=== PATIENT | female | born 1970 | race Caucasian/White ===

== ENCOUNTER → 2018-04-17 16:15 | Outpatient (CLI) | payer BC, SELFPAY ==
--- NOTE | 2018-04-17 16:15 | DT_ITS ---
This patient was seen during an EMR downtime April 17, 2018 - April 24, 2018. This patient may have a combination of paper and electronic documentation or all paper documentation. All documentation is viewable within the e-chart portion of [facility] for each patient visit.
[2018-05-02 16:03] LABS: HPV Reflexed? NOT INDICATED
== END ==
PROVIDERS: Visit Provider Obstetrics & Gynecology
DX: Z12.4 Encounter for screening for malignant neoplasm of cervix (principal)
CPT/HCPCS: 88175; G0145

== ENCOUNTER 2018-08-21 23:23 | Emergency (ER) | payer BC, SELFPAY ==
[2018-08-21 23:24] VITALS: BP 166/105; PULSE 93; RESP 16; TEMP 37; O2SAT 98; BMI 22.4
--- NOTE | 2018-08-21 23:39 | EKG12_ITS ---
Test Reason : GENERAL ILLNESS Blood Pressure : / mmHG Vent. Rate : 082 BPM Atrial Rate : 082 BPM P-R Int : 130 ms QRS Dur : 070 ms QT Int : 378 ms P-R-T Axes : 051 056 058 degrees QTc Int : 441 ms Normal sinus rhythm Normal ECG Confirmed by JEANNINE DAI, CHAKA ([id number]), international editorial producer WALESKA GR ([id number] on 08/24/2018 1:38:56 PM Referred By: JAVI Confirmed By:CHAKA PAEZ MD
--- NOTE | 2018-08-21 23:39 | CT_ITS ---
STUDY: CT BRAIN WITHOUT CONTRAST REASON FOR EXAM: Female, 47 years old. Doesn't feel right. Had a stroke 4 weeks ago RADIATION DOSAGE (If Supplied By Facility): CTDIvol = ( 44.99 ) mGy, DLP = ( 745.49 ) mGycm TECHNIQUE: Transaxial CT imaging of the brain was performed without administration of intravenous contrast material. Individualized dose optimization techniques were used for this CT. COMPARISON: None. FINDINGS: There is no scalp hematoma. No calvarial fracture. No intra or extra-axial hemorrhage or tumor mass and no evidence of an acute infarction. A 2.0 x 0.5 cm linear area of low attenuation is seen in the left basal ganglia. This is probably from an old infarction. The ventricles, basal cisterns and cortical sulci are normal with no midline shift. The orbits, paranasal sinuses and mastoid air cells are normal.. CT/Brain/Head without Contrast IMPRESSION: No acute findings in the brain. A linear area of low attenuation is in the left basal ganglia and probably represents an old infarct Electronically Signed: Darryl Bueno MD at 0:15 EDT Tel , Service support ,
--- NOTE | 2018-08-21 23:41 | ED.DCSUM_ITS ---
- ER Visit Summary Date of Service: 08/21/18 Chief Complaint: [] Possible medication side effect with nausea and head tingling History of Present Illness: The patient is a 47 F patient stated the above symptoms started gradually soon after she took citalopram 830 this evening. She felt some heart palpitations and felt like her head was cool. She stated she was admitted at [facility] and had a stroke evaluation 4 weeks ago that left her with loss of fine motor strength in her hands. All of her other symptoms went away per patient. She was told it was anxiety related and she was discharged. During follow-up she stated she had 5 small strokes due to an MRI that was done as an outpatient. The patient is not on any aspirin or other blood thinners. EMS gave Zofran tonight for nausea. Her symptoms are currently resolved. She does have a history of anxiety. She was placed on citalopram by her nurse practitioner just today. Physical Examination: [] Vital signs reviewed General: Well-nourished well-developed Head: Normocephalic atraumatic Eyes: Pupils equal round and reactive to light extraocular movements intact ENT: TMs clear no hemotympanum no trauma Neck: Nontender full range of motion Cardiovascular: Regular rate rhythm no murmurs normal S1-S2 Respiratory: No distress clear to auscultation bilaterally chest nontender Abdomen: Soft nontender nondistended normal bowel sounds no masses Back: Nontender no CVA tenderness Extremities: Nontender active range of motion ?4 extremities no trauma Skin: Normal color no trauma Neuro alert oriented cranial nerves II through XII intact normal strength sensation reflexes Test Results: [] Emergency Department Course and Treatment: [] Patient given IV fluids. Lab work EKG and CT head obtained EKG shows sinus at a rate of 82 without ischemia. CBC is normal except hematocrit 36.8. Chemistries normal except potassium 3.[address] chloride [address] of the head shows linear regions in the left basal ganglier consistent with probable old infarct. This is consistent with the patient's previous story. She felt better after treatment. No focal deficits. Cranial hemorrhage on CT. I think this is related to the medication that she took this evening. She will hold off on this med and follow-up. Treatment Plan: [] Disposition: [] Impression: [] Nausea with head tingling and palpitations?suspected medication side effect This note was generated with Sriram dictation software. It may contain incorrect words, spelling, and punctuation that were not noted in review of the chart prior to signing ED Disposition - Plan for ED Patient: Chief Complaint: General Illness Referrals: Perfecto Murray MD [Primary Care Provider] -
[2018-08-22 00:36] LABS: Absolute Lymphocyte Count 2.15 X10^3/ul (0.83-4.51); Absolute Neutrophil Count 5.5 X10^3/uL (2.0-7.7); Basophil# 0.05 X10^3/uL; Basophil% 0.6 % (0-1); Eosinophil# 0.09 X10^3/uL; Eosinophils% 1.1 % (0-5); Hematocrit 36.8 % (37-47); Hemoglobin 12.5 g/dl (12.0-15.0); Lymphocyte # 2.15 X10^3/ul (4.0); Lymphocyte % 25.5 % (19-41); Mean Corpuscular Hgb 29.7 pg (27.0-32.0); Mean Corpuscular Volume 87.4 fL (81-99); Mean Platelet Vol. 9.8 fl (6.2-12.0); Monocyte# 0.68 X10^3/uL; Monocyte% 8.1 % (0-10); Neutrophil # 5.45 X10^3/uL (2.7-7.7); Neutrophil % 64.6 % (47-70); POSITIVE COUNT NO; POSITIVE DIFFERENTIAL NO; POSITIVE MORPHOLOGY NO; Platelet Count 355 K/mm3 (150-450); Red Blood Count 4.21 M/mm3 (4.2-5.4); White Blood Count 8.4 K/mm3 (4.4-11.0)
[2018-08-22 00:51] LABS: Anion Gap 7 (5-15); BUN 14 mg/dL (7-18); BUN/Creat Ratio 18.6 RATIO (10-20); Calcium,Total 8.2 mg/dL (8.5-10.1); Chloride 108 mmol/L (98-107); Creatinine, Serum 0.75 mg/dL (0.55-1.02); EST Glomerular Filtration Rate 86 mL/min (>60); Est Glom Filt Rate - Afr Amer 105 mL/min (>60); Estimated Creatinine Clearance 65.17 ml/min; Glucose 100 mg/dL (74-106); Potassium 3.4 mmol/L (3.5-5.1); Sodium Level 140 mmol/L (136-145)
--- NOTE | 2018-08-22 01:12 | ED.DEP ---
ED Disposition - Plan for ED Patient: Disposition: Home or Assisted Living Chief Complaint: General Illness Instructions: Taking Medication Safely Referrals: Perfecto Murray MD [Primary Care Provider] -
[2018-08-22 01:17] VITALS: BP 168/73; PULSE 90; RESP 20; O2SAT 99
== END 2018-08-22 01:18 | disposition home or self-care (01) ==
PROVIDERS: Emergency Provider Emergency Medicine
DX: R11.0 Nausea (principal); R20.2 Paresthesia of skin; R00.2 Palpitations; F41.9 Anxiety disorder, unspecified; Z79.899 Other long term (current) drug therapy; Z86.73 Personal history of transient ischemic attack (TIA), and cerebral infarction without residual deficits
CPT/HCPCS: 70450; 80048; 85025; 93005; 96360; 99285; J7030; J7040; A4216

== ENCOUNTER → 2018-08-23 16:06 | Outpatient (CLI) | payer BC, SELFPAY ==
--- NOTE | 2018-08-23 16:28 | CT_ITS ---
Exam: CTA of the neck with contrast and 2-D reconstructions. HISTORY: Visual changes and diaphoresis. COMPARISON: None TECHNIQUE: Patient injected with 100 cc Isovue-370 IV. Axial images were followed with 2-D MIPS reconstructions reviewed at a separate workstation. FINDINGS: Normal appearance of the visualized aortic arch. Normal branching pattern of the great vessels. Common carotid arteries are normal for age. No significant calcified plaque of the carotid bulbs. Right ICA is normal. Left ICA appears completely occluded at the origin. A small amount of contrast is seen in the mid left ICA but it may very likely be from retrograde flow via the [place]. Normal origin and appearance of the vertebral arteries. The left vertebral artery is dominant. Normal visualized basilar artery. Visualized soft tissues including the lung apices and visualized cervical spine show no gross acute abnormalities. CT/CTA Neck W/WO Contrast IMPRESSION: Complete occlusion of the left ICA. Minimal blood flow, possibly retrograde through the [place]. Normal right ICA and vertebral arteries. Electronically Signed: Mahendra Faustin MD at 18:21 EDT , Service support ,
--- NOTE | 2018-08-23 16:28 | CT_ITS ---
STUDY: CTA OF THE BRAIN REASON FOR EXAM: Female, 48 years old. Right-sided weakness and facial droop RADIATION DOSAGE (If Supplied By Facility): CTDIvol = ( 8.75 ) mGy, DLP = ( 1164.21 ) mGycm TECHNIQUE: CT angiography was performed with a multi-detector CT scanner. Data acquisition was obtained from the skull base through the vertex following intravenous administration of 100 ml of Isovue-370. MIP images were reconstructed from the axial data set. Post-processing of the angiographic images was performed, with multiplanar reformation and 3D reconstruction. Individualized dose optimization techniques were used for this CT. COMPARISON: CT scan 08/22/2018 was reviewed.. FINDINGS: There is markedly abnormal left petrous carotid artery which appears to be showing only retrograde flow via the [place]. It appears that the left internal carotid artery in the upper neck is occluded. On the right, the petrous carotid artery, and cavernous carotid artery are patent with small foci of calcified plaque but no evidence for stenosis. Normal A1 segment, and M1 segment on the right. Both normal ACAs fill via the right circulation. Normal M2 branches of the right middle cerebral artery. Relatively small left cavernous carotid artery with a few small flecks of calcified plaque. Relatively small left M1 artery but normal branching pattern. Again, flow on the left is probably via the patent [place] and the right carotid artery. Normal right posterior communicating artery (PCOM). Normal left posterior communicating artery (PCOM). Normal bilateral vertebral arteries. Normal basilar artery with a normal basilar bifurcation. The visualized bilateral superior cerebellar (SCA) arteries are normal. Normal bilateral P1, P2 and visualized P3 segments of the posterior cerebral arteries. There is no demonstrated aneurysm of the [place]. There is no demonstrated abnormality of the visualized brain. CT/CTA Head W/WO Contrast IMPRESSION: Essentially absent flow seen in the left ICA. Very little flow seen in the left petrous carotid artery, cavernous carotid artery, and left MCA most likely retrograde from the [place] and the patent right-sided circulation. No other significant or acute intracranial abnormalities. Electronically Signed: Mahendra Faustin MD at 17:51 EDT , Service support ,
[2018-08-23 17:06] LABS: Homocysteine 7.8 umol/L (3.2-10.7)
[2018-08-23 17:29] LABS: Cholesterol 227 mg/dL (200); High Density Lipoprotein 52 mg/dL; Triglycerides 69 mg/dL; Very Low Density Lipoprotein 14 mg/dL (5-40)
[2018-08-23 19:04] LABS: Hemoglobin A1c 5.2 % (4.2-6.3)
== END ==
PROVIDERS: Referring Provider Psychiatry & Neurology Clinical Neurophysiology; Visit Provider Psychiatry & Neurology Clinical Neurophysiology
DX: H53.34 Suppression of binocular vision (principal); I10 Essential (primary) hypertension; Z86.73 Personal history of transient ischemic attack (TIA), and cerebral infarction without residual deficits
CPT/HCPCS: 36415; 70496; 70498; 80061; 83036; 83090; Q9967

== ENCOUNTER → 2018-09-13 13:50 | Outpatient (CLI) | payer BC, SELFPAY ==
--- NOTE | 2018-09-13 13:55 | ECHODONC_ITS ---
Reason For Study: Stroke Procedure This was a 2D Doppler, Color Flow transthoracic echocardiogram. Myocardial strain analysis was performed in this exam to aid in the assessment of cardiac function. Exam performed in department. Left Ventricle Normal LV size. Left ventricular systolic function is normal. The estimated ejection fraction is 65 %. No evidence for diastolic dysfunction. The global longitudinal strain is normal. The global longitudinal strain = -22.7 % (normal). No regional wall motion abnormalities noted. Right Ventricle Normal RV size. Normal systolic function. Atria Normal left atrium. Normal right atrium. Bubble contrast study negative for right to left interatrial shunt. Mitral Valve Normal mitral valve. Tricuspid Valve Normal tricuspid valve. Aortic Valve Normal aortic valve. Trisinus/trileaflet aortic valve. Pulmonic Valve Normal pulmonic valve. Great Vessels Normal aortic root. The pulmonary artery is normal size. Normal inferior vena cava. Pericardium/Pleural No pericardial effusion. Medication 20 gauge I.V. with prn adaptor inserted into right arm. Performed a rapid injection of agitated mix of 9 cc saline and 1cc air to assess for atrial septal defect. MMode/2D Measurements & Calculations LVIDd: 3.6 cm IVSd: 0.85 cm Ao root diam: 2.8 cm LVIDs: 2.2 cm LVPWd: 0.63 cm LA dimension: 2.6 cm RVDd: 3.0 cm FS: 38.3 % LAV(MOD-bp): 32.9 ml LA A4 area: 13.3 cm2 RA A4 area: 8.4 cm2 LAV(MOD-bp) Indexed: 22.7 ml/m2 LAV(MOD-sp2): 38.2 ml LAV(MOD-sp4): 27.0 ml Time Measurements MV dec time: 0.17 sec Doppler Measurements & Calculations MV E max keegan: 104.6 cm/sec Lat Peak E' Keegan: 19.5 cm/sec Med Peak E' Keegan: 14.4 cm/sec MV A max keegan: 77.1 cm/sec E/E' lat: 5.4 E/E' med: 7.3 MV E/A: 1.4 MV V2 max: 124.2 cm/sec MV P1/2t max keegan: 123.3 cm/sec Ao V2 max: 146.4 cm/sec MV max P.2 mmHg MV P1/2t: 64.6 msec Ao max P.6 mmHg MV V2 mean: 65.8 cm/sec MV dec slope: 559.1 cm/sec2 Ao V2 mean: 87.4 cm/sec MV mean P.1 mmHg MVA(P1/2t): 3.4 cm2 Ao mean P.6 mmHg MV V2 VTI: 28.1 cm Ao V2 VTI: 27.0 cm LV V1 max: 128.3 cm/sec PA V2 max: 104.0 cm/sec LV V1 max P.6 mmHg LV V1 mean P.6 mmHg LV V1 mean: 73.9 cm/sec LV V1 VTI: 24.4 cm Interpretation Summary Normal LV size. Left ventricular systolic function is normal. The estimated ejection fraction is 65 %. No evidence for diastolic dysfunction. Bubble contrast study negative for right to left interatrial shunt. The global longitudinal strain = -22.7 % (normal). Ordering Physician: David^Tamara^^^DO Referring Physician: Tamara Hernandez Performed By: Petros Evans RCS
== END ==
PROVIDERS: Referring Provider Psychiatry & Neurology Clinical Neurophysiology; Visit Provider Psychiatry & Neurology Clinical Neurophysiology
DX: Z86.73 Personal history of transient ischemic attack (TIA), and cerebral infarction without residual deficits (principal)
CPT/HCPCS: 0399T; 93306; A4216

== ENCOUNTER → 2018-10-12 08:54 | Outpatient (CLI) | payer BC, SELFPAY ==
[2018-10-12 10:17] LABS: International Normalized Ratio 1.1; Partial Thromboplast Time 29.7 Seconds (24.1-36.2); Prothrombin Time (Protime)PT. 13.9 SECONDS (11.7-14.9)
[2018-10-12 10:22] LABS: Erythrocyte Sedimentation Rate 6 mm/hr (0-30)
[2018-10-12 10:45] LABS: CRP < 2.90 mg/L (0.0-3.0)
[2018-10-16 20:06] LABS: Dilute Prothrombin Time (dPT) 41.4 sec (0.0-55.0); Dilute Russell Viper Venom 33.3 sec (0.0-47.0); PTT-LA 35.2 sec (0.0-51.9); dPT Confirm Ratio 1.16 Ratio (0.00-1.40)
[2018-10-17 08:52] LABS: Anti-Cardiolipin Ab, IgA, Qn < 9 APL U/mL (0-11); Anti-Cardiolipin Ab, IgG, Qn < 9 GPL U/mL (0-14); Anti-Cardiolipin Ab, IgM, Qn < 9 MPL U/mL (0-12); Interpretation Comment: (.)
--- OUTSIDE RECORDS SUMMARY | 2018-12-07 08:54 | XMS RPT_ITS ---
:1970 Author Organization OHIP Care Team Providers Name Role Phone Landon Dumont Admitting Unavailable Landon Dumont Attending Unavailable Perfecto Murray Primary Care Unavailable Kaye Roth Attending Unavailable Perfecto Murray Primary Care Unavailable Umesh Smith Attending Unavailable Perfecto Murray Primary Care Unavailable GABBY RECINOS Consulting Unavailable Tamara Hernandez Attending Unavailable Ysabel Hernandezfer Referring Unavailable Tamara Hernandez Attending Unavailable David, Tamara Referring Unavailable Perfecto Murray Primary Care Unavailable Marcelino Peña Attending Unavailable David, Tamara Referring Unavailable David, Tamara Attending Unavailable David, Tamara Referring Unavailable Perfecto Murray Primary Care Unavailable KIKO HIRSCH (DO) Referring Unavailable KOSMORSKIKO JOHNSON S (DO) Attending Unavailable COOPERRIDER II, CLARE H Referring Unavailable COOPERRIDER II, CLARE H Attending Unavailable PROBLEMS PROBLEMS DATE TYPE CONDITION / CODE ATTENDING STATUS SOURCE 10/27/2018 Unknown I10 - Essential Tamara Hernandez Active [place] (primary) [facility] hypertension / Hospital I10(ICD-10) Repository 08/07/2018 Active Cerebral infarction, NA Active [place] unspecified / Clinic Main I63.9(ICD-10) [place] Repository 08/07/2018 Active Other cerebrovascular NA Active [place] disease / [facility] Main I67.89(ICD-10) [place] Repository 08/07/2018 Active Other encephalopathy NA Active [place] / G93.49(ICD-10) Clinic Main [place] Repository 08/07/2018 Active 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) / Clinic Main G44.52(ICD-10) [place] Repository 05/11/2018 Unknown Z12.4 - Encounter for Kaye Roth Active [place] screening for [facility] malignant neoplasm of Hospital cervix / Repository Z12.4(ICD-10) PROCEDURES PROCEDURES No Procedure Records FoundRESULTS RESULTS PROTHROMBIN TIME W/INR Collected: 10/12/2018 Status: F Source: [place] 9:17 AM [facility] REPOSITORY TYPE CODE TESTS RESULT OUT OF RANGE REFERENCE UNITS LAB L300.4150 11.7-14.9 SECONDS Normal PROTIME 13.9 LAB L300.4200 Normal INR 1.1 Performed By: #### L300.3900, L300.4310 #### [place] [facility] [address] [place], [place], [id number] PARTIAL THROMBOPLAST Collected: 10/12/2018 Status: F Source: [place] TIME 9:17 AM [facility] REPOSITORY TYPE CODE TESTS RESULT OUT OF RANGE REFERENCE UNITS LAB L300.4310 24.1-36.2 Seconds Normal PTT 29.7 Performed By: #### L300.3900, L300.4310 #### [facility] [address] [place], [place], [address] ERYTHROCYTE SED RATE Collected: 10/12/2018 Status: F Source: [place] 9:17 AM [facility] REPOSITORY TYPE CODE TESTS RESULT OUT OF RANGE REFERENCE UNITS LAB L102.0000 0-30 mm/hr Normal SED RATE 6 Performed By: #### L101.9900 #### [facility] [address] [place], [address] CRP Collected: 10/12/2018 Status: F Source: [place] 9:17 AM [facility] REPOSITORY TYPE CODE TESTS RESULT OUT OF RANGE REFERENCE UNITS LAB L501.6710 0.0-3.0 mg/L Normal < 2.90 C-REACTIVE PROT Result Comment: C-Reactive Protein (CRP) provides useful information for the diagnosis, therapy and monitoring of inflammatory processes and associated diseases. For the evaluation of Relative Risk for Cardiovascular Disease, a High Sensitivity CRP (HSCRP) should be ordered. Performed By: #### L501.6710 #### [facility] [address] [place], [address] MISCELLANEOUS LAB Collected: 10/12/2018 Status: F Source: [place] PROCEDURE 9:17 AM [facility] REPOSITORY Order Comment: Test(s) Ordered: [id number] ANTITHROMBIN ACTIVITY BLUE PLASMA FZ TYPE CODE TESTS RESULT OUT OF RANGE REFERENCE UNITS LAB L801.1541 Normal [facility] LAB TEST Result Comment: TEST RESULT UNITS REFERENCE INTERVAL ANTITHROMBIN ACTIVITY 114 % 75 - 135 Direct Xa inhibitor anticoagulants such as rivaroxaban, apixaban and edoxaban will lead to spuriously elevated antithrombin activity levels possibly masking a deficiency. TESTING PERFORMED AT [facility]. ORIGINAL REPORT ON FILE IN LAB CONTAINS ADDITIONAL TEST SITE INFORMATION. Performed By: #### L801.1541 #### [facility] [address] [place], [address] ANTICARDIOLIPIN IGA,G,M Collected: 10/12/2018 Status: F Source: [place] 9:17 AM [facility] REPOSITORY TYPE CODE TESTS RESULT OUT OF RANGE REFERENCE UNITS LAB L3100.8420 0-14 GPL U/mL Normal ANTICARDIO IgG < 9 Result Comment: Negative: <15 Indeterminate: 15 - 20 Low-Med Positive: >20 - 80 High Positive: >80 LAB L3100.8425 0-12 MPL U/mL Normal ANTICARDIO IgM < 9 Result Comment: Negative: <13 Indeterminate: 13 - 20 Low-Med Positive: >20 - 80 High Positive: >80 LAB L3100.8430 0-11 APL U/mL Normal ANTICARDIO IgA < 9 Result Comment: Negative: <12 Indeterminate: 12 - 20 Low-Med Positive: >20 - 80 High Positive: >80 Performed By: #### L3100.8408, L4500.0100, L4500.5000 #### [facility] (refer to report for specific site) refer to report for address and phone number LUPUS ANTICOAGULANT COMP Collected: 10/12/2018 Status: F Source: [place] 9:17 AM [facility] REPOSITORY TYPE CODE TESTS RESULT OUT OF REFERENCE UNITS RANGE LAB L4500.0125 0.0-55.0 sec DILUTE PT (dPT) Normal 41.4 LAB L4500.0150 0.00-1.40 Ratio dPT Conf. Ratio Normal 1.16 LAB L4500.0200 0.0-23.0 sec THROMBIN TIME Normal 16.0 LAB L4500.0600 0.0-51.9 sec PTT-LA Normal 35.2 LAB L4500.1000 0.0-47.0 sec DRVVT Normal 33.3 LAB L4500.1300 . Interpretation Normal Comment: Result Comment: No lupus anticoagulant was detected. Performed By: #### L3100.8408, L4500.0100, L4500.5000 #### [facility] (refer to report for specific site) refer to report for address and phone number FACT V LEIDEN Collected: 10/12/2018 Status: F Source: [place] MUTATION 9:17 AM [facility] REPOSITORY TYPE CODE TESTS RESULT OUT OF RANGE REFERENCE UNITS LAB L4500.5100 . Normal FACTOR V Comment LEIDEN Result Comment: Result: Negative (no mutation found) Factor V Leiden is a specific mutation (R506Q) in the factor V gene that is associated with an increased risk of venous thrombosis. Factor V Leiden is more resistant to inactivation by activated protein C. As a result, factor V persists in the circulation leading to a mild hyper- coagulable state. The Leiden mutation accounts for 90% - 95% of APC resistance. Factor V Leiden has been reported in patients with deep vein thrombosis, pulmonary embolus, central retinal vein occlusion, cerebral sinus thrombosis and hepatic vein thrombosis. Other risk factors to be considered in the workup for venous thrombosis include the [id number] mutation in the factor II (prothrombin) gene, protein S and C deficiency, and antithrombin deficiencies. Anticardiolipin antibody and lupus anticoagulant analysis may be appropriate for certain patients, as well as homocysteine levels. Contact your local [facility] for information on how to order additional testing if desired. Genetic counselors are available for health care providers to discuss results at [phone] Methodology: DNA analysis of the Factor V gene was performed by allele- specific PCR. The diagnostic sensitivity and specificity is >99% for both. Molecular-based testing is highly accurate, but as in any laboratory test, diagnostic errors may occur. All test results must be combined with clinical information for the most accurate interpretation. This test was developed and its performance characteristics determined by [facility]. It has not been cleared or approved by the Food and Drug Administration. References: Rafa Rouse (1995). Clin Lab Med 16:169-186. Nadia Abbott, PhD, FACMG Carin Izaguirre, PhD, FACMG Marito AckermanS., PhD, FACMG Annemarie Smith, PhD, FACMG Rhonda Logan, PhD, FACMG Carlo Delacruz PhD, FACMG Performed at: [address] [id number] [employer] Operator: Alexandre Simon MD, Phone: [phone] Performed at: [address] [id number] [employer] Operator: Artur Peterson PhD, Phone: [phone] Performed at: [email or web address] [address] [facility], [place], [place] [id number] [employer] Operator: Jacinta More MD, Phone: [phone] Performed By: #### L3100.8408, L4500.0100, L4500.5000 #### [facility] (refer to report for specific site) refer to report for address and phone number MISCELLANEOUS LAB Collected: 10/12/2018 Status: F Source: [place] PROCEDURE 2 9:17 AM [facility] REPOSITORY Order Comment: List Test(s) Ordered by Physician: [id number] PROTHROMBIN COMPLEX IGG IGM PLASMA FZ TYPE CODE TESTS RESULT OUT OF RANGE REFERENCE UNITS LAB L801.1543 Normal [facility] LAB TEST 2 Result Comment: TEST RESULT UNITS REF INTERVAL Anti-PS/PT Abs IgG, IgM Anti-PS/PT Abs IgG <10 Units Reference Range: <31 Anti-PS/PT Abs IgM 31 High Units A positive result indicates the presence of IgM antibodies to phosphatidylserine/prothrombin complex (PS/PT) and is an aid in the diagnosis of certain autoimmune thrombotic disorders, such as antiphospholipid syndrome or those secondary to systemic lupus erythematosus. In patients with antiphospholipid syndrome, aPS/PT antibodies have been found to be highly associated with venous thrombosis and obstetric abnormalities. Reference Range: <31 TESTING PERFORMED AT [facility]. ORIGINAL REPORT ON FILE IN LAB CONTAINS ADDITIONAL TEST SITE INFORMATION. Performed By: #### L801.1543 #### [place] [facility] [address] [place], [address] ONC ECHOCARDIOGRAM Observed: 09/13/2018 Status: F Source: [place] COMPLETE 5:59 PM [facility] REPOSITORY [facility] Cardiovascular Services [address] [place] [address] ONC Echo Complete 09/13/18 1357 MR#: [id number] Acct: [id number] Name: MERY DOLL Rep #: [id number] : 1970 48 From: Marcelino Peña MD Attending Dr: Tamara Hernandez DO Status: REG CLI Ordering Dr: Tamara Hernandez DO Date: 09/13/18 Location: CVS Sex: F C Admitted: Reason For Study: Stroke Procedure This was a 2D Doppler, Color Flow transthoracic echocardiogram. Myocardial strain analysis was performed in this exam to aid in the assessment of cardiac function. Exam performed in department. Left Ventricle Normal LV size. Left ventricular systolic function is normal. The estimated ejection fraction is 65 %. No evidence for diastolic dysfunction. The global longitudinal strain is normal. The global longitudinal strain = -22.7 % (normal). No regional wall motion abnormalities noted. Right Ventricle Normal RV size. Normal systolic function. Atria Normal left atrium. Normal right atrium. Bubble contrast study negative for right to left interatrial shunt. Mitral Valve Normal mitral valve. Tricuspid Valve Normal tricuspid valve. Aortic Valve Normal aortic valve. Trisinus/trileaflet aortic valve. Pulmonic Valve Normal pulmonic valve. Great Vessels Normal aortic root. The pulmonary artery is normal size. Normal inferior vena cava. Pericardium/Pleural No pericardial effusion. Medication 20 gauge I.V. with prn adaptor inserted into right arm. Performed a rapid injection of agitated mix of 9 cc saline and 1cc air to assess for atrial septal defect. MMode/2D Measurements AND Calculations LVIDd: 3.6 cm IVSd: 0.85 cm Ao root diam: 2.8 cm LVIDs: 2.2 cm LVPWd: 0.63 cm LA dimension: 2.6 cm RVDd: 3.0 cm FS: 38.3 % LAV(MOD-bp): 32.9 ml LA A4 area: 13.3 cm2 RA A4 area: 8.4 cm2 LAV(MOD-bp) Indexed: 22.7 ml/m2 LAV(MOD-sp2): 38.2 ml LAV(MOD-sp4): 27.0 ml Time Measurements MV dec time: 0.17 sec Doppler Measurements AND Calculations MV E max keegan: 104.6 cm/sec Lat Peak E' Keegan: 19.5 cm/sec Med Peak E' Keegan: 14.4 cm/sec MV A max keegan: 77.1 cm/sec E/E' lat: 5.4 E/E' med: 7.3 MV E/A: 1.4 MV V2 max: 124.2 cm/sec MV P1/2t max keegan: 123.3 cm/sec Ao V2 max: 146.4 cm/sec MV max P.2 mmHg MV P1/2t: 64.6 msec Ao max P.6 mmHg MV V2 mean: 65.8 cm/sec MV dec slope: 559.1 cm/sec2 Ao V2 mean: 87.4 cm/sec MV mean P.1 mmHg MVA(P1/2t): 3.4 cm2 Ao mean P.6 mmHg MV V2 VTI: 28.1 cm Ao V2 VTI: 27.0 cm LV V1 max: 128.3 cm/sec PA V2 max: 104.0 cm/sec LV V1 max P.6 mmHg LV V1 mean P.6 mmHg LV V1 mean: 73.9 cm/sec LV V1 VTI: 24.4 cm Interpretation Summary Normal LV size. Left ventricular systolic function is normal. The estimated ejection fraction is 65 %. No evidence for diastolic dysfunction. Bubble contrast study negative for right to left interatrial shunt. The global longitudinal strain = -22.7 % (normal). Ordering Physician: David Referring Physician: Tamara Hernandez Performed By: Petros Evans RCS 09/13/181758 Date Marcelino Peña MD CC: Perfecto Murray MD; Tamara Hernandez DO Date Dictated: 09/13/18 1357 Date Transcribed: 09/13/181758 [employer] Consultant: Signed 12 LEAD ELECTROCARDIOGRAM Observed: 08/24/2018 Status: F Source: [place] 1:39 PM [facility] REPOSITORY [facility] Cardiovascular Services [address] [place] [address] [place] [address] 12 Lead EKG 08/21/18 2348 MR#: [id number] Acct: [id number] Name: MERY DOLL Rep #: [id number] : 1970 47 From: Ney Paez MD Attending Dr: Status: DEP ER Ordering Dr: Umesh Smith MD Date: 08/21/18 Location: ED Sex: F C Admitted: Test Reason : GENERAL ILLNESS Blood Pressure : / mmHG Vent. Rate : 082 BPM Atrial Rate : 082 BPM P-R Int : 130 ms QRS Dur : 070 ms QT Int : 378 ms P-R-T Axes : 051 056 058 degrees QTc Int : 441 ms Normal sinus rhythm Normal ECG Confirmed by JEANNINE DAI, NEY ([id number]), publication editor WALESKA GR ([id number]) on 08/24/2018 1:38:56 PM Referred By: JAVI Confirmed By:NEY PAEZ MD 08/24/18 1339 Date Ney Paez MD CC: Perfecto Murray MD; Umesh Smith MD Signed CTA HEAD W/WO Observed: 2018 Status: F Source: [place] CONTRAST 4:35 PM [facility] REPOSITORY [facility] Imaging Services [address] [place] [address] CTA Head W/WO Contrast MR#: [id number] Acct: [id number] Name: MERY DOLL Rep #: [id number] : 1970 F 48 From: Mahendra Faustin MD PCP: Perfecto Murray MD Status: REG CLI Study: CTA Head W/WO Contrast Date of Exam: 08/23/18 Exam# [id number] Ordering Dr: Tamara Hernandez DO STUDY: CTA OF THE BRAIN REASON FOR EXAM: Female, 48 years old. Right-sided weakness and facial droop RADIATION DOSAGE (If Supplied By Facility): CTDIvol = ( 8.75 ) mGy, DLP = ( 1164.21 ) mGycm TECHNIQUE: CT angiography was performed with a multi-detector CT scanner. Data acquisition was obtained from the skull base through the vertex following intravenous administration of 100 ml of Isovue-370. MIP images were reconstructed from the axial data set. Post-processing of the angiographic images was performed, with multiplanar reformation and 3D reconstruction. Individualized dose optimization techniques were used for this CT. COMPARISON: CT scan 08/22/2018 was reviewed.. FINDINGS: There is markedly abnormal left petrous carotid artery which appears to be showing only retrograde flow via the [facility] [place]. It appears that the left internal carotid artery in the upper neck is occluded. On the right, the petrous carotid artery, and cavernous carotid artery are patent with small foci of calcified plaque but no evidence for stenosis. Normal A1 segment, and M1 segment on the right. Both normal ACAs fill via the right circulation. Normal M2 branches of the right middle cerebral artery. Relatively small left cavernous carotid artery with a few small flecks of calcified plaque. Relatively small left M1 artery but normal branching pattern. Again, flow on the left is probably via the patent [facility] [place] and the right carotid artery. Normal right posterior communicating artery (PCOM). Normal left posterior communicating artery (PCOM). Normal bilateral vertebral arteries. Normal basilar artery with a normal basilar bifurcation. The visualized bilateral superior cerebellar (SCA) arteries are normal. Normal bilateral P1, P2 and visualized P3 segments of the posterior cerebral arteries. There is no demonstrated aneurysm of the [facility] [place]. There is no demonstrated abnormality of the visualized brain. CT/CTA Head W/WO Contrast IMPRESSION: Essentially absent flow seen in the left ICA. Very little flow seen in the left petrous carotid artery, cavernous carotid artery, and left MCA most likely retrograde from the [facility] [place] and the patent right-sided circulation. No other significant or acute intracranial abnormalities. Electronically Signed: Mahendra Faustin MD at 17:51 EDT , Service support , CC: Perfecto Murray MD; Tamara Hernandez DO [employer] Consultant: Signed CTA NECK W/WO Observed: 2018 Status: F Source: [place] CONTRAST 4:35 PM [facility] REPOSITORY [facility] Imaging Services [facility] [place] [address] [place] [address] CTA Neck W/WO Contrast MR#: [id number] Acct: [id number] Name: MERY DOLL Sheri Rep #: [id number] : 1970 F 48 From: Mahendra Faustin MD PCP: Perfecto Murray MD Status: REG CLI Study: CTA Neck W/WO Contrast Date of Exam: 08/23/18 Exam# [id number] Ordering Dr: Tamara Hernandez DO Exam: CTA of the neck with contrast and 2-D reconstructions. HISTORY: Visual changes and diaphoresis. COMPARISON: None TECHNIQUE: Patient injected with 100 cc Isovue-370 IV. Axial images were followed with 2-D MIPS reconstructions reviewed at a separate workstation. FINDINGS: Normal appearance of the visualized aortic arch. Normal branching pattern of the great vessels. Common carotid arteries are normal for age. No significant calcified plaque of the carotid bulbs. Right ICA is normal. Left ICA appears completely occluded at the origin. A small amount of contrast is seen in the mid left ICA but it may very likely be from retrograde flow via the [facility] [place]. Normal origin and appearance of the vertebral arteries. The left vertebral artery is dominant. Normal visualized basilar artery. Visualized soft tissues including the lung apices and visualized cervical spine show no gross acute abnormalities. CT/CTA Neck W/WO Contrast IMPRESSION: Complete occlusion of the left ICA. Minimal blood flow, possibly retrograde through the [facility] [place]. Normal right ICA and vertebral arteries. Electronically Signed: Mahendra Faustin MD at 18:21 EDT , Service support , CC: Perfecto Murray MD; Tamara Hernandez DO [employer] Consultant: Signed HOMOCYSTEINE Collected: 2018 Status: F Source: [place] 4:19 PM [facility] REPOSITORY TYPE CODE TESTS RESULT OUT OF REFERENCE UNITS RANGE LAB L503.8001 3.2-10.7 umol/L HOMOCYSTEINE Normal 7.8 Performed By: #### L503.8001 #### [facility] [address] [place], [address] LIPID PROFILE Collected: 2018 Status: F Source: [place] 4:19 PM [facility] REPOSITORY TYPE CODE TESTS RESULT OUT OF RANGE REFERENCE UNITS LAB L501.4900 200 mg/dL High CHOL 227 Result Comment: <200 mg/dL Desirable 200-240 mg/dL Borderline >240 mg/dL High Risk LAB L501.5000 mg/dL Normal TRIG 69 Result Comment: The drugs N-Acetylcysteine and Metamizole may falsely depress this assay. Serum Triglycerides Reference Interval Normal <150 mg/dL Borderline high 150 - 199 mg/dL High 200 - 499 mg/dL Very High > or = 500 mg/dL LAB L501.6400 mg/dL Normal HDL 52 Result Comment: The drugs N-Acetylcysteine and Metamizole may falsely depress this assay. Reference Range HDL <40 mg/dL Low HDL Cholesterol HDL >or= 60 mg/dL High HDL Cholesterol LAB L501.6500 0-130 mg/dL High LDL 161 LAB L501.6600 5-40 mg/dL Normal VLDL 14 Performed By: #### L500.4100 #### [facility] [address] [place], [address] HEMOGLOBIN A1C Collected: 2018 Status: F Source: [place] 4:19 PM [facility] REPOSITORY TYPE CODE TESTS RESULT OUT OF RANGE REFERENCE UNITS LAB L501.9985 4.2-6.3 % Normal HGB A1C 5.2 Performed By: #### L501.9985 #### [facility] [address] [place], [address] DISCHARGE INSTRUCTION Observed: 08/22/2018 Status: F Source: [place] 5:44 AM [facility] REPOSITORY [facility] Medical Records Department [address] [place] [address] Discharge Instruction 08/22/18 0112 MR#: [id number] Acct: [id number] Name: MERY DOLL Rep #: [id number] : 1970 47 From: Umesh Smith MD PCP: Perfecto Murray MD Status: DEP ER ED Disposition - Plan for ED Patient: Disposition: Home or Assisted Living Chief Complaint: General Illness Instructions: Taking Medication Safely Referrals: Perfecto Murray MD [Primary Care Provider] - What to do if you have Problems For any increased pain, shortness of breath, bleeding, nausea or vomiting, chest pain, or any unexpected problems, contact your Primary Care Provider. Call [facility] ([phone]) or report to the closest Emergency Room. Call 911 if necessary. 08/22/18 0544 <Electronically signed by Umesh Smith MD> Date Umesh Smith MD Cosigner Signature (If Indicated): Date CC: Perfecto Murray MD EMERGENCY DEPARTMENT Observed: 08/22/2018 Status: F Source: [place] SUMMARY 5:44 AM [facility] REPOSITORY [facility] Medical Records Department [address] [place] [address] Emergency Department Summary 08/21/18 2340 MR#: [id number] Acct: [id number] Name: MERY DOLL Rep #: [id number] : 1970 47 From: Umesh Smith MD PCP: Perfecto Murray MD Status: DEP ER - ER Visit Summary Date of Service: 08/21/18 Chief Complaint: [] Possible medication side effect with nausea and head tingling History of Present Illness: The patient is a 47 F patient stated the above symptoms started gradually soon after she took citalopram 830 this evening. She felt some heart palpitations and felt like her head was cool. She stated she was admitted at [facility] and had a stroke evaluation 4 weeks ago that left her with loss of fine motor strength in her hands. All of her other symptoms went away per patient. She was told it was anxiety related and she was discharged. During follow-up she stated she had 5 small strokes due to an MRI that was done as an outpatient. The patient is not on any aspirin or other blood thinners. EMS gave Zofran tonight for nausea. Her symptoms are currently resolved. She does have a history of anxiety. She was placed on citalopram by her nurse practitioner just today. Physical Examination: [] Vital signs reviewed General: Well-nourished well-developed Head: Normocephalic atraumatic Eyes: Pupils equal round and reactive to light extraocular movements intact ENT: TMs clear no hemotympanum no trauma Neck: Nontender full range of motion Cardiovascular: Regular rate rhythm no murmurs normal S1-S2 Respiratory: No distress clear to auscultation bilaterally chest nontender Abdomen: Soft nontender nondistended normal bowel sounds no masses Back: Nontender no CVA tenderness Extremities: Nontender active range of motion 4 extremities no trauma Skin: Normal color no trauma Neuro alert oriented cranial nerves II through XII intact normal strength sensation reflexes Test Results: [] Emergency Department Course and Treatment: [] Patient given IV fluids. Lab work EKG and CT head obtained EKG shows sinus at a rate of 82 without ischemia. CBC is normal except hematocrit 36.8. Chemistries normal except potassium 3.[address] chloride [address] of the head shows linear regions in the left basal ganglier consistent with probable old infarct. This is consistent with the patient's previous story. She felt better after treatment. No focal deficits. Cranial hemorrhage on CT. I think this is related to the medication that she took this evening. She will hold off on this med and follow-up. Treatment Plan: [] Disposition: [] Impression: [] Nausea with head tingling and palpitations suspected medication side effect This note was generated with [employer] dictation software. It may contain incorrect words, spelling, and punctuation that were not noted in review of the chart prior to signing ED Disposition - Plan for ED Patient: Chief Complaint: General Illness Referrals: Perfecto [place] MD [Primary Care Provider] - What to do if you have Problems For any increased pain, shortness of breath, bleeding, nausea or vomiting, chest pain, or any unexpected problems, contact your Primary Care Provider. Call [facility] ([phone]) or report to the closest Emergency Room. Call 911 if necessary. 08/22/18 0544 <Electronically signed by Umesh Smith MD> Date Umesh Smith MD Cosigner Signature (If Indicated): Date CC: Perfecto Murray MD CBC W/DIFF, AUTOMATED Collected: 08/22/2018 Status: F Source: [place] 12:12 AM [facility] REPOSITORY TYPE CODE TESTS RESULT OUT OF RANGE REFERENCE UNITS LAB L100.1000 4.4-11.0 K/mm3 Normal WBC 8.4 LAB L100.1200 4.2-5.4 M/mm3 Normal RBC 4.21 LAB L100.1300 12.0-15.0 g/dl Normal HGB 12.5 LAB L100.1400 37-47 % Low HCT 36.8 LAB L100.1500 81-99 fL Normal MCV 87.4 LAB L100.1600 27.0-32.0 pg Normal MCH 29.7 LAB L100.1700 32-36 g/gl Normal MCHC 34.0 LAB L100.1810 11.6-14.6 % Normal RDW CV 12.0 LAB L100.1820 35.1-43.9 fl Normal RDW SD 38.0 LAB L100.1900 150-450 K/mm3 Normal PLT 355 LAB L100.2000 6.2-12.0 fl Normal MPV 9.8 LAB L100.2100 47-70 % Normal NEUT% 64.6 LAB L100.2200 19-41 % Normal LY% 25.5 LAB L100.2300 0-10 % Normal MONO% 8.1 LAB L100.2400 0-5 % Normal EO% 1.1 LAB L100.2500 0-1 % Normal BASO% 0.6 LAB L100.2550 0.0-0.9 % Normal IM GRAN % 0.100 Result Comment: IG% - Immature Granulocytes (promyelocytes, myelocytes and metamyelocytes) > 1% indicates that a LEFT SHIFT is Present. LAB L100.2620 2.0-7.7 X10 3/uL Normal Absolute Neut 5.5 LAB L100.2720 0.83-4.51 X10 3/ul Normal Absolute Lymph 2.15 Performed By: #### L100.0100 #### [facility] [place], [address] BASIC METABOLIC Collected: 08/22/2018 Status: F Source: PIPE PROFILE (BMP) 12:12 AM [facility] REPOSITORY TYPE CODE TESTS RESULT OUT OF RANGE REFERENCE UNITS LAB L501.0100 74-106 mg/dL Normal GLU 100 Result Comment: Fasting Glucose result from 100 to 125 mg/dL suggests IMPAIRED HOMEOSTASIS per A.D.A. criteria. Please note revised GLUCOSE reference range effective 2017. LAB L501.1000 7-18 mg/dL Normal BUN 14 LAB L501.1100 0.55-1.02 mg/dL Normal CREAT,SERUM 0.75 Result Comment: The validity of the calculated GFR AND GFRAA in patients over 70 years has not been determined. Clinical correlation is essential. LAB L501.1110 >60 mL/min Normal EST GFR 86 Result Comment: Non- GFR Calc LAB L501.1115 >60 mL/min Normal EST GFR - AA 105 Result Comment: GFR Calc LAB L501.1255 ml/min Normal Estimated CRCL 65.17 LAB L501.1300 10-20 RATIO Normal BUN/CRE 18.6 LAB L501.2200 8.5-10 mg/dL Low .1 CA 8.2 LAB L501.5300 136-14 mmol/L Normal 5 NA 140 LAB L501.5600 3.5-5. mmol/L Low 1 K 3.4 LAB L501.5900 98-107 mmol/L High CL 108 LAB L501.6100 21.0-3 mmol/L Normal 2.0 CO2 25.0 LAB L501.6200 5-15 Normal GAP 7 Performed By: #### L500.2500 #### [facility] [address] [place], [address] BRAIN/HEAD WITHOUT Observed: 08/21/2018 Status: F Source: PIPE CONTRAST 11:40 PM [facility] REPOSITORY [facility] Imaging Services [address] [place] [address] Brain/Head without Contrast MR#: [id number] Acct: [id number] Name: MERY DOLL Rep #: [id number] : 1970 F 47 From: Darryl Bueno MD PCP: Perfecto Murray MD Status: PRE ER Study: Brain/Head without Contrast Date of Exam: 08/21/18 Exam# [id number] Ordering Dr: Umesh Smith MD STUDY: CT BRAIN WITHOUT CONTRAST REASON FOR EXAM: Female, 47 years old. Doesn't feel right. Had a stroke 4 weeks ago RADIATION DOSAGE (If Supplied By Facility): CTDIvol = ( 44.99 ) mGy, DLP = ( 745.49 ) mGycm TECHNIQUE: Transaxial CT imaging of the brain was performed without administration of intravenous contrast material. Individualized dose optimization techniques were used for this CT. COMPARISON: None. FINDINGS: There is no scalp hematoma. No calvarial fracture. No intra or extra-axial hemorrhage or tumor mass and no evidence of an acute infarction. A 2.0 x 0.5 cm linear area of low attenuation is seen in the left basal ganglia. This is probably from an old infarction. The ventricles, basal cisterns and cortical sulci are normal with no midline shift. The orbits, paranasal sinuses and mastoid air cells are normal.. CT/Brain/Head without Contrast IMPRESSION: No acute findings in the brain. A linear area of low attenuation is in the left basal ganglia and probably represents an old infarct Electronically Signed: Darryl Bueno MD at 0:15 EDT Tel , Service support , CC: Perfecto Murray MD; Umesh Smith MD [employer] Solutions Consultant: Signed PROGRESS Observed: 08/08/2018 Status: COMPLETED Source: [place] 10:28 AM [facility] [place] REPOSITORY [facility] ID: [id number] Author: Kiko Ramires Service: (none) Author Type: Physician Type: Progress Notes Filed: 08/08/2018 10:29 AM Note Text: IMPRESSION: Subacute infarcts in the left MCA territory involving the left lentiform nucleus, frontal cortes radiata, frontal operculum and underlying insula as well as small cortical subacute infarcts in the left superior occipital lobe. ?Patchy areas of enhancement with intrinsic T1 hyperintensity suggesting petechial hemorrhage. ?No significant mass effect. Loss of the normal flow void in the proximal left intracranial ICA, suggesting severe proximal stenosis or occlusion. Minimal nonspecific white matter changes. [employer] Solutions Consultant: ROHAN ? Transcribe Date/Time: Aug 07 2018 ?5:19P Dictated by : MD MELANI JUNIOR Observed: 08/08/2018 Status: COMPLETED Source: [place] 12:00 AM [facility] REPOSITORY Telephone (OPHTST) MERY DOLL ([id number]) 1970 F T Date Time Provider Department 08/08/18 KIKO HIRSCH () OPHTST During your visit today, we recorded the following information about you: Kiko Hirsch DO 08/08/2018 10:29 AM Signed You can read her the MRI report. I've asked Dr Farzad Fernandes to see her and please make that appointment IMPRESSION: Subacute infarcts in the left MCA territory involving the left lentiform nucleus, frontal cortes radiata, frontal operculum and underlying insula as well as small cortical subacute infarcts in the left superior occipital lobe. ?Patchy areas of enhancement with intrinsic T1 hyperintensity suggesting petechial hemorrhage. ?No significant mass effect. Loss of the normal flow void in the proximal left intracranial ICA, suggesting severe proximal stenosis or occlusion. Minimal nonspecific white matter changes. [employer] Solutions Consultant: ROHAN ? Transcribe Date/Time: Aug 07 2018 ?5:19P Dictated by : MD Gerri JUNIOR 08/09/2018 9:56 AM Signed Contacted the patient and relayed the results of her MRI and that she should be seen by Dr. Fernandes. Patient would like to know if you would be able to refer her to a doctor closer to her home in [place]. Patient can be contacted at the following number, . Gerri Vilchis 08/10/2018 10:40 AM Signed Contacted the patient and relayed the following message. Patient says she left a separate message stating she would like to see Dr. Tamara Hernandez with [facility]. Contacted her office and they said the patient would need to have a referral form and contact information sent and they would contact the patient with the appointment. Fax the form for the patient to see the requested doctor. Kiko Ramires ?You 55 minutes ago (8:07 AM) I have no idea who is in that area so she would need to ask her PCP about a local neurologist (Routing comment) Allergies As of Date: 08/08/2018 Noted Allergy Reaction YELLOW DYE 05/23/2018 4 - Hives Date Reviewed: 07/25/2018 Reviewed by: Kiko Ramires - Fully Assessed Reason for Visit: Results [95] Prescriptions as of 08/08/2018 Sig: LISINOPRIL 10 MG TABLET BUPROPION HCL SR 150 MG TABLE* Problem List As Of Date 08/08/2018 Noted Resolved TIA (transient ischemic attack) [G45.9] INVALID FOR* Myopia, bilateral [H52.13] INVALID FOR* Regular astigmatism, left eye [H52.222] INVALID FOR* Presbyopia [H52.4] INVALID FOR* Encounter Status:Closed by KIKO HIRSCH DO on 08/08/18 PROGRESS Observed: 08/07/2018 Status: COMPLETED Source: [place] 3:24 PM [facility] [place] REPOSITORY O ID: [id number] Author: Omid Anderson (Rt) Service: (none) Author Type: Bag Mender Type: Progress Notes Filed: 08/07/2018 3:25 PM Note Text: Radiology Service Progress Note PATIENT NAME: Mery Doll DATE OF SERVICE: August 07, 2018 TIME: 3:24 PM PATIENT IDENTITY VERIFICATION COMPLETED USING TWO (2) METHODS: Patient confirmed name verbally and Date of . PATIENT GENDER DATA: Female. status: : No status: NO. PATIENT RELEVANT IMPLANT DATA REVIEWED: Yes CONTRAST INDUCED NEPHROPATHY RISK FACTORS: Not applicable CREATININE: No results found for: CREAT, EGFROTH, EGFRAA P.O.C.T. RESULTS: N/A August 07, 2018 RADIOLOGIST NOTIFIED?: No ALLERGIES: Reviewed and unchanged CONTRAST ALLERGY: NO. PERIPHERAL IV ACCESS: Ambulatory: IV type: A peripheral IV was started in the Right antecubital site with a Angio cath: 22 gauge., Site assessment: Clean,Dry and Intact, Site disposition Discontinued RADIOLOGY DEPARTMENT: MR; Exam(s) Completed: Head: Routine Brain SIGNED BY: Jackeline Luis RT August 07, 2018 3:24 PM MRI BRAIN WO/W Observed: 08/07/2018 Status: F Source: [place] IVCON 3:17 PM [facility] REPOSITORY * * *Final Report* * * DATE OF EXAM: Aug 07 2018 3:17PM RUSTY 0295 - MRI BRAIN WO/W IVCON / PROCEDURE REASON: multiple diagnoses * * * * Physician Interpretation * * * * EXAMINATION: MRI BRAIN WO/W IVCON CLINICAL HISTORY: New daily persistent headaches with family history of CAD a central and prior stroke. TECHNIQUE: Routine brain MRI protocol without and with contrast including diffusion images. MQ: [id number] Contrast: 10ml mL Dotarem IV COMPARISON: None. RESULT: Acute Change: There is no evidence of restricted diffusion to suggest an acute infarct. Hemorrhage: Mild intrinsic T1 hyperintensity is associated with the subacute infarct in the left lentiform nucleus, left frontal cortes radiata, left frontal operculum and insula suggesting mild petechial hemorrhage. There is no space-occupying parenchymal hematoma. Mass Lesion/ Mass Effect: There is patchy enhancement within a subacute infarct in the left lentiform nucleus and left cortes radiata as well as the left frontal operculum with associated T2/FLAIR hyperintensity. No significant mass effect is associated with the subacute infarct. No evidence of an intracranial mass or extra-axial fluid collection. No other abnormal parenchymal or leptomeningeal enhancement is noted following contrast administration. No significant mass effect. Chronic Change: There is a left MCA territory subacute infarct involving the left lentiform nucleus extending slightly into the left frontal cortes radiata, left frontal operculum and underlying insula with associated enhancement. This demonstrates increased signal on the diffusion-weighted imaging without corresponding decreased ADC signal. Additional small subacute cortical infarcts are present in the left superior occipital lobe with patchy areas of enhancement and FLAIR hyperintensity without significant mass effect. There is mild confluent FLAIR hyperintensity involving the left periatrial periventricular parietal white matter, which is nonspecific but may reflect mild chronic microvascular ischemic changes or sequela of remote insult.. The remainder of the white matter is otherwise within normal limits for age. Parenchyma: No significant volume loss for age. The brain parenchyma is otherwise within normal limits of signal intensity and morphology. Ventricles: Normal caliber and morphology. Skull Base: Hypothalamic and pituitary region are grossly normal. Craniocervical junction is normal. No significant marrow replacement process. Vasculature: There is loss of the normal flow void within the proximal left intracranial ICA, including the left petrous, last from and cavernous segments with distal reconstitution in the left supraclinoid segment, suggesting severe proximal stenosis or occlusion. The remainder of the major intracranial arterial structures, and dural venous sinuses show typical flow void, suggesting patency by spin echo criteria. Other: The visualized paranasal sinuses and mastoid air cells are clear. The orbits and extracranial soft tissues are unremarkable. IMPRESSION: Subacute infarcts in the left MCA territory involving the left lentiform nucleus, frontal cortes radiata, frontal operculum and underlying insula as well as small cortical subacute infarcts in the left superior occipital lobe. Patchy areas of enhancement with intrinsic T1 hyperintensity suggesting petechial hemorrhage. No significant mass effect. Loss of the normal flow void in the proximal left intracranial ICA, suggesting severe proximal stenosis or occlusion. Minimal nonspecific white matter changes. [employer] Consultant: ROHAN Transcribe Date/Time: Aug 07 2018 5:19P Dictated by : BIPIN MATTHEW MD This examination was interpreted and the report reviewed and electronically signed by: BIPIN MATTHEW MD on Aug 07 2018 5:32PM EST [id number] UA COMPLETE Collected: 07/26/2018 Status: F Source: RELIGIOUS 10:21 AM [facility] REPOSITORY TYPE CODE TESTS RESULT OUT OF RANGE REFERENCE UNITS LAB 78767798( Yellow LOINC) Normal UA Color Yellow LAB 36693882( Clear LOINC) Normal UA Clarity Clear LAB 07347588( Negative LOINC) Normal UA Glucose Negative LAB 86363855( Negative LOINC) Normal UA Bili Negative LAB 82759783( LOINC) Normal UA Ketones Trace LAB 28262946( 1.003-1.030 LOINC) Normal UA Spec Grav 1.006 LAB 77267406( 4.6-8.0 LOINC) Normal UA pH 7.0 LAB 80320280( Negative LOINC) Normal UA Protein Negative LAB 69859668( LOINC) Normal UA Urobilinogen Negative LAB 72662765( Negative LOINC) Normal UA Nitrite Negative LAB 92022135( Negative LOINC) Normal UA Blood Negative LAB 08036624( Negative LOINC) Normal UA Leuk Est Negative LAB 76151566( 0-3 /HPF LOINC) Normal UA RBC 0-3 LAB 81546363( 0-5 /HPF LOINC) Normal UA WBC 0-5 LAB 89768688( 0-5 /HPF LOINC) Normal UA Squam Epithelial 0-5 LAB 55120310( Trace /LPF LOINC) UA Mucous Abnormal Trace Performed By: #### [id number] #### [facility] Urinalysis Automated Subsection [address] [place] [address] U BHCG QLT Collected: 07/26/2018 Status: F Source: RELIGIOUS 10:21 AM [facility] REPOSITORY TYPE CODE TESTS RESULT OUT OF RANGE REFERENCE UNITS LAB 4139344(JUAN JOSÉ Neg NC) Normal U beta Neg hCG Ql Performed By: #### [id number] #### [facility] Urinalysis Manual Subsection [facility] [place] [id number] CBC W/ AUTO DIFF Collected: 07/26/2018 Status: F Source: RELIGIOUS 9:33 AM [facility] REPOSITORY TYPE CODE TESTS RESULT OUT OF RANGE REFERENCE UNITS LAB 36397686(L 3.6-11.0 E3/mcL OINC) Normal WBC 8.2 LAB 33503084(L 3.90-5.40 E6/mcL OINC) Normal RBC 4.27 LAB 56016105(L 12.0-16.0 G/DL OINC) Normal Hgb 12.9 LAB 43805932(L 36.0-48.0 % OINC) Normal Hct 38.1 LAB 73208604(L 11.5-14.5 % OINC) Normal RDW 12.8 LAB 60475468(L 27.0-31.0 pg OINC) Normal MCH 30.2 LAB 89738560(L 33.0-37.0 G/DL OINC) Normal MCHC 33.9 LAB 67328361(L 78.0-100.0 fL OINC) Normal MCV 89.2 LAB 51023919(L 7.4-11.0 fL OINC) Normal MPV 8.1 LAB 76281551(L 130-400 E3/mcL OINC) Normal Platelet 330 Performed By: #### [id number] #### [facility] [employer] [facility] [place] [address] AUTO DIFF Collected: 07/26/2018 Status: F Source: RELIGIOUS 9:33 AM [facility] REPOSITORY Order Comment: Order Added by Discern Expert. TYPE CODE TESTS RESULT OUT OF RANGE REFERENCE UNITS LAB 12269576(L 37.0-75.0 % OINC) High Neutro Auto 75.9 LAB 86854461(L 20.0-55.0 % OINC) Low Lymph Auto 15.5 LAB 09813759(L 0.0-10.0 % OINC) Normal Cooper Auto 7.4 LAB 69695640(L 0.0-11.0 % OINC) Normal Eos Auto 0.3 LAB 21483364(L 0.0-2.0 % OINC) Normal Basophil Auto 0.9 LAB 38879250(L 1.4-6.5 E3/mcL OINC) Normal Neutro 6.3 Absolute LAB 06946155(L 1.2-3.4 E3/mcL OINC) Normal Lymph Absolute 1.3 LAB 46171167(L 0.0-0.7 E3/mcL OINC) Normal Cooper Absolute 0.6 LAB 38308359(L 0.0-0.7 E3/mcL OINC) Normal Eos Absolute 0.0 LAB 92410539(L 0.0-0.2 E3/mcL OINC) Normal Basophil 0.1 Absolute Performed By: #### [id number] #### [facility] [employer] [address] [place] [address] TROPONIN-I Collected: 07/26/2018 Status: F Source: RELIGIOUS 9:33 AM [facility] REPOSITORY TYPE CODE TESTS RESULT OUT OF RANGE REFERENCE UNITS LAB 68087858(LO .00-.03 ng/mL INC) Normal <.01 Troponin-I Performed By: #### [id number] #### [facility] [employer] [facility] [place] [id number] CMP Collected: 07/26/2018 Status: F Source: RELIGIOUS 9:33 AM [facility] REPOSITORY TYPE CODE TESTS RESULT OUT OF RANGE REFERENCE UNITS LAB 81729333(L 70-99 mg/dL OINC) High Glucose Lvl 101 LAB 16822872(L 8.4-10.2 mg/dL OINC) Calcium Normal Lvl 8.9 LAB 01700543(L 136-145 mEq/L OINC) Sodium Normal Lvl 138 LAB 46058246(L 3.5-5.1 mEq/L OINC) Normal Potassium Lvl 3.7 LAB 80303475(L 98-107 mEq/L OINC) Chloride Normal 105 LAB 11915328(L 24.0-30.0 mEq/L OINC) Low CO2 22.8 LAB 33783514(L 7-18 mg/dL OINC) BUN Normal 14 LAB 5223453(LO 0.6-1.3 mg/dL INC) Normal Creatinine 0.7 LAB 61387075(L 42-121 Int._Unit/ OINC) L Alk Phos Normal 49 LAB 87907415(L 0.2-1.0 mg/dL OINC) Bili Normal Total 0.6 LAB 39904964(L 3.2-5.0 G/DL OINC) Albumin Normal Lvl 4.0 LAB 95404445(L 6.4-8.3 G/DL OINC) Total Normal Protein 7.2 LAB 90706436(L 10-40 Int._Unit/ OINC) L ALT Normal 21 LAB 38337364(L 10-42 Int._Unit/ OINC) L AST Normal 21 LAB 13241279(L 5.4-30.0 ratio OINC) Normal BUN/Creat Ratio 20.0 LAB 03691460(L 2.0-4.0 G/DL OINC) Globulin Normal 3.2 LAB 23404572(L 1.1-1.9 ratio OINC) A/G Normal Ratio 1.2 Performed By: #### [id number] #### [facility] [employer] [address] [place] [address] EGFR Collected: 07/26/2018 Status: F Source: RELIGIOUS 9:33 AM [facility] REPOSITORY Order Comment: Order added by Discern Expert. TYPE CODE TESTS RESULT OUT OF RANGE REFERENCE UNITS LAB 78604187(LO mL/min/1.73 INC) m2 Normal eGFR >60 LAB 69628247(LO mL/min/1.73 INC) m2 Normal eGFR AA >60 Performed By: #### [id number] #### [facility] [employer] [address] [place] [address] CT BRAIN(ED ONLY-STROKE Observed: 07/26/2018 Status: F Source: RELIGIOUS PROTOCOL) 8:40 AM [facility] REPOSITORY Exam Date/Time: 07/26/2018 08:53 EDT Reason for Exam: Stroke Report STUDY: CT Brain(ED Only-Stroke Protocol); 07/26/2018 8:53 am INDICATION: Stroke. COMPARISON: None. ACCESSION NUMBER(S): [id number] ORDERING CLINICIAN: Landon Dumont TECHNIQUE: Volume acquisition through the brain with axial coronal and sagittal reformatted 5 mm images. No IV contrast. FINDINGS: INTRACRANIAL: The ventricles are midline in position. Kemp-white matter differentiation is well maintained. There is no evidence of acute infarction or hemorrhage. There is no extra-axial mass or fluid collection. Basilar cisterns are patent. EXTRACRANIAL: The imaged paranasal sinuses are clear. The imaged mastoid air cells are clear. The calvarium is intact. IMPRESSION: There is no evidence of an acute infarction or hemorrhage. Above findings were discussed with the ED physician at 8:56 a.m. 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 genetic testing. Will get MRI. She presently has no ocular findings. If the MRI is suggestive of this condition she will need to be referred to neurologic genetics as I do not do this kind of work. I have confirmed and edited as necessary the relevant ophthalmic history, ROS, and the neuro exam findings as obtained by others. I have seen and examined this patient. I have discussed the case and the management of this patient's care with the Resident/Fellow, if applicable. I also have reviewed and agree with the assessment and plan as stated above and agree with all of its relevant components. Kiko Emanuel DO Ricky July 25, 2018 2:06 PM PROGRESS Observed: 05/23/2018 Status: COMPLETED Source: [place] 5:29 PM [facility] REPOSITORY HNO ID: [id number] Author: Clare Arcos II Service: (none) Author Type: BUILDINGS AND GROUNDS COORDINATOR Type: Progress Notes Filed: 05/23/2018 5:41 PM Note Text: ASSESSMENT/PLAN: 1. Amaurosis fugax - ICD9: 362.34, ICD10: G45.3 (primary diagnosis) Multiple episodes started 3 weeks ago. Distorted vision and loss of temporal sight left eye>right eye. Episodes last less than 1 hour. No history of migraine. Patient reports stable BP control. Mother and cousins have CADASIL. Mother in her 60's suffering paralysis following recent strokes resulting in increased stress levels for patient. Recommend further neurological and cardiovascular work-up as well as genetic testing to determine cause of recent symptoms. Will contact patient with referral information. 2. Myopia, bilateral - ICD9: 367.1, ICD10: H52.13 3. Regular astigmatism, left eye - ICD9: 367.21, ICD10: H52.222 4. Presbyopia - ICD9: 367.4, ICD10: H52.4 Small shift in glasses power demonstrated to patient. Past non-adapt to PAL's. Discussed glasses options. I have confirmed and edited as necessary the relevant ophthalmic history, review of systems, surgical history, and ophthalmological examination findings as obtained by the ophthalmic technical staff. I have seen and examined Mery Doll. I have discussed the examination findings, diagnosis, and treatment options with the patient and/or the patient's family. I have also reviewed and agree with the assessment and plan as stated above and agree with all its relevant components. I gave the patient the opportunity to ask questions about the findings, diagnosis, and treatment options. Clare Arcos, II, OD DOWNTIME REPORT Observed: 05/04/2018 Status: F Source: [place] 1:19 PM [facility] REPOSITORY [facility] Medical Records Department [address] [place] [address] Downtime Report MR#: [id number] Acct: [id number] Name: MERY DOLL Rep #: [id number] : 1970 47 From: Morgan Gr PCP: Status: REG CLI This patient was seen during an EMR downtime April 17, 2018 - April 24, 2018. This patient may have a combination of paper and electronic documentation or all paper documentation. All documentation is viewable within the e-chart portion of [employer] for each patient visit. PAP I-G W/RFX HRHPV Collected: 04/17/2018 Status: F Source: [place] 4:15 PM [facility] REPOSITORY Order Comment: CYTOLOGY INFORMATION: - CLINICAL INFORMATION: - DATE LMP/MENOPAUSE: 03/27/18 LMP - COLLECTION VIAL: Thin Prep Vial - VALET CASHIER SOURCE: CERVICAL/ENDOCERVICAL - COLLECTION TECHNIQUE: BRUSH/SPATULA Specimen Comment: Source.............Cervix;Endocervix Specimen Comment: LMP / Prev Treat...CVO=[id number] Specimen Comment: No. of containers..01 ThinPrep Vial Specimen Comment: A duplicate report has been generated due to demographic Specimen Comment: updates. TYPE CODE TESTS RESULT OUT OF RANGE REFERENCE UNITS LAB L7400.0800 . Normal DIAGN Comment Result Comment: NEGATIVE FOR INTRAEPITHELIAL LESION AND MALIGNANCY. LAB L7400.0900 . Normal ADEQ Comment Result Comment: Satisfactory for evaluation. Endocervical and/or squamous metaplastic cells (endocervical component) are present. LAB L7400.1400 . Normal PERFORM Comment Result Comment: Annette Arguello, Road Cutter (ASCP) LAB L7400.2575 . Normal TEST METHOD Comment Result Comment: This liquid based ThinPrep(R) pap test was screened with the use of an image guided system. LAB L7400.2600 . Normal . COMM LAB L7400.2700 . Normal PAPSMR Comment Result Comment: The Pap smear is a screening test designed to aid in the detection of premalignant and malignant conditions of the uterine cervix. It is not a diagnostic procedure and should not be used as the sole means of detecting cervical cancer. Both false-positive and false-negative reports do occur. LAB L7400.2800 . Normal HPV RFLX Comment Result Comment: The HPV DNA reflex criteria were not met with this specimen result therefore, no HPV testing was performed. Performed at: - [facility] [place] [id number] [employer] Distiller Operator: Margo Burch MD, Phone: [phone] Performed By: #### L7400.0350 #### [facility] (refer to report for specific site) refer to report for address and phone number ALLERGIES ALLERGIES DATE TYPE / CODE NAME / CODE REACTION SEVERITY SOURCE 08/21/2018 Drug yellow Rash Unknown [facility] Allergy/4160 dye/[id number] Hospital [address](SNOMED (RXNORM) Repository CT) 05/23/2018 DRUG YELLOW DYE HIVES [facility] INGREDI/[address] [place] [address](SNOMED Repository CT) Drug/[id number] YELLOW NUMBER Unknown [facility] 03([address]) System Repository ENCOUNTERS ENCOUNTERS ADMIT/DISCHARGE ACCOUNT NUMBER ADMITTING ENCOUNTER LOCATION SOURCE CLASS 10/12/2018 [id number] [facility] ding:LAB Repository 09/13/2018 [id number] [facility] ding:[facility] Repository 09/13/2018 [id number] Ambulatory [facility]: [facility] Repository 2018 [id number] [facility] ding:CT Repository 08/21/2018/08/22/20 [id number] Emergency [address] ding:ED Repository 08/07/2018/08/07/20 [id number] Ambulatory [address] Repository 07/26/2018/07/26/20 [id number] Landon Dumont Emergency [address] ding[facility] EDRoom: WR Repository 07/26/[id number] Repository 07/25/2018/07/25/20 [id number] Ambulatory [address] Repository 05/25/2018/05/26/20 [id number] Ambulatory [address] Repository 05/23/2018/05/24/20 [id number] Ambulatory [address] Repository 04/17/2018 [id number] Ambulatory [place] [facility] ding:LABSPEC Repository PAYERS PAYERS ENCOUNTER GUARANTOR PAYER SUBSCRIBER SOURCE 10/12/2018 SALINA L [id number] Primary CHRISTINE L RUSHDOB: [place] Insurance:ANTHEMPolic [id number] y Number: [facility] [address]Grb: [id number] Repository ve Date:2562-87-26QG () [address] [place] [address]AH: 10/12/2018 Secondary NOT GIVENUNK [place] Insurance:SELF PAY [facility] Number: Effective Repository Date:2018-10-12 09/13/2018 SALINA Sheri [id number] Primary CHRISTINE L RUSHDOB: [place] [facility] 0825-03-18MPMM[facility], y Number: [facility] [address]Eds: [id number] Repository ve Date:8376-91-33PE () [address]ZN [place] [address]WA: 09/13/2018 Secondary NOT GIVENUNK [place] Insurance:SELF PAY [facility] Number: Effective Repository Date:2018-09-04 09/13/2018 BENTLEYA Sheri [id number] Primary CHRISTINE L RUSHDOB: [place] [facility] 1823-06-24WLNMercy Medical [facility], y Number: [facility] [id number]: [id number] Repository ve Date:2416-94-89HD () [address] [place] [address]YD: 09/13/2018 Secondary NOT GIVENUNK [place] Insurance:SELF PAY [facility] Number: Effective Repository Date:2018-09-13 2018 SALINA L [id number] Primary CHRISTINE L RUSHDOB: [place] Insurance:[facility] [id number] Medical Center [facility], y Number: [facility] [address]Whw: [id number] Repository ve Date:2224-17-71QS () [address], [place] [address]PJ: 2018 Secondary NOT GIVENUNK [place] Insurance:SELF PAY [facility] Number: Effective Repository Date:2018 08/21/2018 [place] Sheri [id number] Primary CHRISTINE L RUSHDOB: [place] Insurance:ANTHEMPolic [id number] Medical Center [facility], y Number: [facility] [address]Kiz: [id number] Repository ve Date:3831-15-65KR () [address], [place] [address]CT: 08/21/2018 Secondary NOT GIVENUNK [place] Insurance:SELF PAY [facility] Number: Effective Repository Date:2018-08-21 07/26/2018 SALINA RUSHDOB: Primary CHRISTINE L RUSHDOB: [facility] N Insurance:ANTHEMPolic [id number] y Number: Effective N [facility], Date:2018-07-26 [facility], Repository [place] [id number] [place] [id number]: [id number]: Name:Isauro Albert [address] [place] [address]SM: ()Tel: [phone] () 07/26/2018 SALINA RUSHDOB: Primary CHRISTINE RUSHDOB: [place] Insurance:AnthemPolic [id number] y Number: Repository [facility], [id number] [place] [id number]: ve Date:Plan Name:[facility] () 04/17/2018 Lagunaoneal Corralh229 Primary CHRISTINE L RUSHDOB: [place] [facility] [id number] Medical Center [facility], y Number: [facility] [id number]: [id number] Repository Date:6966-30-88GH [address]) [address]IHNJGZI, [place] [address]YP: 04/17/2018 Secondary NOT GIVENUNK [place] Insurance:SELF PAY [facility]: Effective Repository Date:2018-04-17
== END ==
PROVIDERS: Referring Provider Psychiatry & Neurology Clinical Neurophysiology; Visit Provider Psychiatry & Neurology Clinical Neurophysiology
DX: I10 Essential (primary) hypertension (principal); E78.79 Other disorders of bile acid and cholesterol metabolism; I65.21 Occlusion and stenosis of right carotid artery; I69.351 Hemiplegia and hemiparesis following cerebral infarction affecting right dominant side
CPT/HCPCS: 81241; 85610; 85652; 85730; 86140; 86147

== ENCOUNTER 2019-05-07 16:42 | Observation (INO) | payer BC, SELFPAY ==
[2019-05-07] VITALS (12 sets, daily range): BP systolic 133–157; BP diastolic 75–100; PULSE 71–93; RESP 9–18; TEMP 36.1–37.7; O2SAT 94–100; BMI 23.6; BMI 24.0
--- NOTE | 2019-05-07 17:13 | CT_ITS ---
STUDY: CTA NECK WITH CONTRAST REASON FOR EXAM: Female, 48 years old. TIA and left eye vision loss with ocular headache RADIATION DOSAGE (If Supplied By Facility): CTDIvol = ( 23.49 ) mGy, DLP = ( 1158.28 ) mGycm TECHNIQUE: CT angiography with multi-detector data acquisition was performed from the aortic arch to the skull base following intravenous administration of 100ml IV Isovue 370. MIP images were reconstructed from the axial data set. Post-processing of the angiographic images was performed, with multiplanar reformation and 3D reconstruction. Individualized dose optimization techniques were used for this CT. COMPARISON: 08/23/2018 FINDINGS: AORTIC ARCH: Normal visualized aortic arch. Normal origins of the brachiocephalic, left common carotid, and left subclavian arteries. RIGHT CAROTID ARTERIES: Normal right common carotid artery (CCA). Normal right common carotid bulb. Normal origin of the right internal carotid (ICA) artery without a hemodynamically significant stenosis. Normal visualized cervical portion of the right internal carotid artery. Normal origin of the right external carotid artery (ECA). LEFT CAROTID ARTERIES: Normal left common carotid artery (CCA). There is complete occlusion of the proximal left ICA for a length of 13 mm. Distal to this, there is severely diminished flow related enhancement in the ICA extending to the level of the petrous segment (string sign). This is stable compared to prior study. Normal origin of the left external carotid artery (ECA). VERTEBRAL ARTERIES: Normal bilateral vertebral arteries. CT/CTA Neck W/WO Contrast IMPRESSION: There is complete occlusion of the proximal left ICA for a length of 13 mm. Distal to this, there is severely diminished flow-related enhancement in the ICA extending to the level of the petrous segment (string sign). This is stable compared to prior study. The right carotid system and bilateral vertebral arteries are patent. Electronically Signed: Eugene Polk MD at 18:33 EDT Tel , Service support ,
--- NOTE | 2019-05-07 17:13 | CT_ITS ---
STUDY: CTA OF THE BRAIN REASON FOR EXAM: Female, 48 years old. TIA with left eye vision loss and ocular headache RADIATION DOSAGE (If Supplied By Facility): CTDIvol = ( 23.49 ) mGy, DLP = ( 1158.28 ) mGycm TECHNIQUE: CT angiography was performed with a multi-detector CT scanner. Data acquisition was obtained from the skull base through the vertex following intravenous administration of 100ml IV Isovue 370. MIP images were reconstructed from the axial data set. Post-processing of the angiographic images was performed, with multiplanar reformation and 3D reconstruction. Individualized dose optimization techniques were used for this CT. COMPARISON: 08/23/2018 FINDINGS: Intracranial ICA calcifications. Otherwise: Normal right cavernous carotid artery with a normal supraclinoid bifurcation. A near occlusion of the petrous segment of the left ICA is noted with string sign involving that segment of the vessel. This has likely progressed. Significantly decreased flow related enhancement is noted in the left cavernous ICA segment, although that segment remains patent. There is mildly decreased flow related enhancement in the left supraclinoid ICA segment. Overall, the left cavernous and supraclinoid segments are unchanged compared to prior study. Normal right A1 segments of the anterior cerebral artery. Normal left A1 segments of the anterior cerebral artery. Normal intact anterior communicating artery (ACOM). Normal bilateral A2 segments of the anterior cerebral arteries. Normal right M1 and M2 segments of the middle cerebral arteries, with a normal M1 bifurcation. Mildly decreased flow related enhancement in the M1 segment of the left MCA, unchanged from prior study. The more distal segments are patent. Normal right posterior communicating artery (PCOM). Normal left posterior communicating artery (PCOM). Normal bilateral vertebral arteries. Normal basilar artery with a normal basilar bifurcation. The visualized bilateral superior cerebellar (SCA) arteries are normal. Normal bilateral P1, P2 and visualized P3 segments of the posterior cerebral arteries. There is no demonstrated aneurysm of the [place]. Remote infarcts in the left basal ganglia and frontal lobe. CT/CTA Head W/WO Contrast IMPRESSION: Interval progression of diminished flow related enhancement in the petrous segment of the left ICA without jakob occlusion. Stable decreased flow related enhancement in the left supraclinoid and cavernous ICA segments without jakob occlusion. Stable decreased flow related enhancement in the left M1 segment of the MCA. Electronically Signed: Eugene Polk MD at 18:29 EDT Tel , Service support ,
--- NOTE | 2019-05-07 17:13 | RAD_ITS ---
STUDY: X-RAY CHEST REASON FOR EXAM: Female, 48 years old. TIA TECHNIQUE: Single frontal view of the chest. COMPARISON: None. FINDINGS: The lungs are clear and expanded. There is no demonstrated pleural abnormality. Normal size heart. Normal mediastinum and cyndi. Normal visualized pulmonary arteries. Normal visualized aortic arch and descending thoracic aorta. Normal visualized thoracic spine. Normal visualized ribs, clavicles, and shoulders. There is no demonstrated abnormality of the visualized soft tissue structures of the upper abdomen. RAD/Chest 1 View IMPRESSION: Normal x-ray examination of the chest. Electronically Signed: Eugene Polk MD at 18:05 EDT Tel , Service support ,
--- NOTE | 2019-05-07 17:13 | EKG12_ITS ---
Test Reason : NEURO VISION Blood Pressure : / mmHG Vent. Rate : 092 BPM Atrial Rate : 092 BPM P-R Int : 128 ms QRS Dur : 068 ms QT Int : 370 ms P-R-T Axes : 044 058 052 degrees QTc Int : 457 ms Normal sinus rhythm Normal ECG Confirmed by JEANNINE DAI, CHAKA ([id number]), make up editor LB IRWIN ([id number]) on 05/09/2019 7:56:42 AM Referred By: Yokasta Gustafson Confirmed By:CHAKA PAEZ MD
[2019-05-07] MEDS: 0.9% Normal Saline 1,000 ML 100 ML IV ×2 (17:32→23:26)
[2019-05-07 17:35] LABS: Prothrombin Time (Protime)PT. 12.7 SECONDS (11.7-14.9)
[2019-05-07 17:36] LABS: Partial Thromboplast Time 28.3 Seconds (24.1-36.2)
[2019-05-07 17:40] LABS: Absolute Lymphocyte Count 3.05 X10^3/ul (0.83-4.51); Absolute Neutrophil Count 5.2 X10^3/uL (2.0-7.7); Basophil# 0.04 X10^3/uL; Basophil% 0.4 % (0-1); Eosinophil# 0.11 X10^3/uL; Eosinophils% 1.2 % (0-5); Hematocrit 38.6 % (37-47); Lymphocyte # 3.05 X10^3/ul (4.0); Lymphocyte % 32.7 % (19-41); Mean Corp Hgb Conc 33.7 g/gl (32-36); Mean Corpuscular Hgb 29.6 pg (27.0-32.0); Mean Corpuscular Volume 87.9 fL (81-99); Mean Platelet Vol. 9.5 fl (6.2-12.0); Monocyte# 0.95 X10^3/uL; Monocyte% 10.2 % (0-10); Neutrophil # 5.16 X10^3/uL (2.7-7.7); Neutrophil % 55.4 % (47-70); Platelet Count 340 K/mm3 (150-450); RBC Distribution Width CV 12.5 % (11.6-14.6); RBC Distribution Width SD 40.4 fl (35.1-43.9); Red Blood Count 4.39 M/mm3 (4.2-5.4); White Blood Count 9.3 K/mm3 (4.4-11.0)
[2019-05-07 17:43] LABS: POSITIVE COUNT NO; POSITIVE DIFFERENTIAL NO; POSITIVE MORPHOLOGY NO
--- NOTE | 2019-05-07 17:45 | ED.VISSUMM ---
- ER Visit Summary Date of Service: 05/07/19 Chief Complaint: Intermittent visual change History of Present Illness: The patient is a 48 F presents to the emergency department with intermittent visual change. The patient does have a history of prior stroke. She had rather significant right-sided weakness. She was found to have a complete occlusion of her left internal carotid. She has followed with neurology. She had testing done and they have not recommended any surgery. She has been on aspirin and a statin. She states that over the past 24 hours, she had 2 episodes where she had cloudy vision of the left eye. She does not have complete vision loss, but states her vision is abnormal. She had a mild headache, but not necessarily with the symptoms. She is also had some intermittent neck pain. She denies any trouble speaking or swallowing. She denies any other systemic complaints. Physical Examination: Vital signs reviewed General: Well-nourished, well-developed Head: Normocephalic, atraumatic Eyes: Pupils equal and reactive, extraocular muscles intact Neck, supple, no lymphadenopathy Heart: Regular rate and rhythm Respiratory: No distress, clear bilaterally Abdomen: Soft, nontender, nondistended, no peritoneal signs Back: Nontender Extremities: Nontender, no edema, no cords Skin: Normal color no rash Neuro: Alert and oriented, no focal or lateralizing deficits Test Results: [] Emergency Department Course and Treatment: The patient has an NIH of 0. However, she has multiple risk factors for stroke. I am not sure if this was a TIA or even an atypical migraine. She has no headache at this time. The patient underwent CT which was unremarkable. CTA does demonstrate chronic occlusion of the right ICA which is basically unchanged. I did discuss the patient Dr. Armendariz. As she has a chronic occlusion with relatively unchanged blood flow, I do feel the patient would be safest with an observation for TIA. Patient was discussed with the hospitalist. Treatment Plan: [] Disposition: [] Impression: 1. TIA This note was generated with [employer] Mobile Interactionation software. It may contain incorrect words, spelling, and punctuation that were not noted in review of the chart prior to signing ED Disposition - Plan for ED Patient: Disposition: Acute Care [facility]
[2019-05-07 17:47] LABS: Anion Gap 5 (5-15); BUN 19 mg/dL (7-18); Calcium,Total 8.5 mg/dL (8.5-10.1); Chloride 107 mmol/L (98-107); Creatinine, Serum 0.83 mg/dL (0.55-1.02); EST Glomerular Filtration Rate 77 mL/min (>60); Est Glom Filt Rate - Afr Amer 94 mL/min (>60); Estimated Creatinine Clearance 58.25 ml/min; Glucose 91 mg/dL (74-106); Potassium 3.5 mmol/L (3.5-5.1); Sodium Level 138 mmol/L (136-145)
--- NOTE | 2019-05-07 19:12 | HP.PCM_ITS ---
Problem List (1) TIA (transient ischemic attack) Status: Acute (2) Ocular migraine Status: Chronic (3) CVA (cerebral vascular accident) Status: Chronic Qualifiers: CVA mechanism: unspecified Qualified Code(s): I63.9 - Cerebral infarction, unspecified (4) Anxiety and depression Status: Chronic (5) Second hand tobacco smoke exposure Status: Chronic (6) HTN (hypertension) Status: Chronic Qualifiers: Hypertension type: essential hypertension Qualified Code(s): I10 - Essential (primary) hypertension (7) HLD (hyperlipidemia) Status: Chronic Qualifiers: Hyperlipidemia type: unspecified Qualified Code(s): E78.5 - Hyperlipidemia, unspecified (8) Carotid disease, bilateral Status: Chronic Qualifiers: Carotid artery disease type: unspecified Qualified Code(s): I77.9 - Disorder of arteries and arterioles, unspecified History of Present Illness Date of Admission: 05/07/19 Chief Complaint: Intermittent L eye vision loss/changes The patient is a 48 y/o F w/ PMHx: Hx CVA x 2, most recently 2018 w/ R sided hemiplegia, expressive aphasia which has improved to fine motor R sided only w/ known occlusion L ICA, HTN, HLD, Hx Occular Migraine w/ L eye vision changes who presents to the [facility] ED on 05/07/19 with onset 05/06/19 initially L eye vision changes, 1st peripheral noting vision foggy when going from seated to standing position and eventually resolved and the 2nd time on day of ED presentation while hiking w/ noted vision changes noting field of bunch with ability to differentiate shades but unable to differentiate objects, eventually resolving as she walked earlier in the day with admitted L sided temporal throbbing, not severe and no sound sensitivity, not consistent with her prior occular migraine history. She also notes that she has been having general neck discomfort and was worried that it was her carotid disease worsening. Work-up in the ED included T 96.9, heart rate 93, BP 153/75, respiratory rate 16, 98% on room air, unremarkable CBC, unremarkable coags, unremarkable BMP, troponin less than 0.015, CTA head with interval progression of diminished flow related enhancement in the petrous segment of the left ICA without jakob occlusion, stable decreased flow related enhancement of the left supraclinoid and cavernous ICA segments without jakob occlusion, stable decreased flow related enhancement of the left M1 segment of the MCA, CTA Neck w/ complete occlusion of the proximal left ICA for a length of 13 mm, distal to this severely diminished flow related enhancement in the ICA extending to the level of the petrous segment, stable compared to prior study, right carotid system and bilateral vertebral arteries patent, EKG w/ SR without acute evidence of ischemia. Neurology, Dr. Armendariz consulted per ED and discussed case with requested repeat MRI evaluation, stable carotids. Past Medical History Past Medical History (Chronic Problems): Chronic Problems Ocular migraine (Chronic) CVA (cerebral vascular accident) (Chronic) Anxiety and depression (Chronic) Second hand tobacco smoke exposure (Chronic) HTN (hypertension) (Chronic) HLD (hyperlipidemia) (Chronic) Carotid disease, bilateral (Chronic) Allergies yellow dye Adverse Reaction (Verified 05/07/19 16:46) Rash Home Medications: Ambulatory Orders Medication Instructions Recorded Aspirin [Aspirin EC] 81 mg PO DAILY 05/07/19 Atorvastatin Calcium [Lipitor] 20 mg PO QHS 05/07/19 Hydroxyzine HCl 10 mg PO DAILY 05/07/19 Lisinopril [Zestril] 5 mg PO DAILY 05/07/19 buPROPion XL [Wellbutrin Xl] 150 mg PO DAILY 05/07/19 Surgical History: - - x 1. Psychiatric History: Anxiety, Depression SOCIALLY RESPONSIBLE INVESTMENT ADVISER History: No pertinent SOCIALLY RESPONSIBLE INVESTMENT ADVISER history Lives: Spouse/ Significant Other - Lives with her and son. Smoking Status: Never smoker Tobacco Use: Secondhand - Patient does have ongoing secondhand exposure from her . Alcohol: None Drugs: None - *Family History Maternal History Items: - - Patient notes a notable maternal family history of several strokes, severe debility, bedbound status as result, coronary disease with history of MIs, hypertension, hyperlipidemia. Paternal History Items: - - Patient notes a paternal family history of heart disease, coronary disease. Review of Systems Constitutional: Reports: Malaise, Weakness, Fatigue. Denies: Anorexia, Chills, Fever, Weight Change HEENT: Reports: Visual Changes. Denies: Head Aches, Sinus Congestion, Sinus Drainage Cardiovascular: Denies: Chest Pain, Palpitations Respiratory: Denies: Cough, Shortness of breath at rest, Sputum production Gastrointestinal: Denies: Abdominal Pain, Nausea, Vomiting Genitourinary: Denies: Dysuria Musculoskeletal: Reports: Neck Pain. Denies: Joint Pain, Joint Tenderness Skin: Denies: Rash, Wounds Neurological: Reports: Blurred vision, Focal weakness. Denies: Numbness, Tingling Psychiatric: Reports: Anxiety, Depression. Denies: Homicidal Ideations, S uicidal Ideations Hematologic/ Lymphatic: Denies: Easy Bruising, Easy Bleeding VTE Information - Inpt Only VTE Present on Admission: No VTE Mechan Device Prophylaxis: SCD's VTE Pharm Prophylaxis ordered?: Yes Patient Problems: Active and Suspected Problems TIA (transient ischemic attack) (Acute) Subjective: Seated upright in ED bed, mildly fatigued appearance, notes resolution of prior left eye vision changes. Objective: Physical Examination: General: awake, alert, oriented x 3 and cooperative, seated upright in the ED bed in no apparent distress. Skin: normal color, turgor, no icterus, cyanosis. HEENT: AT/NC, EOMI, PERRLA, MMM, no marked carotid bruits (known L occlusion) or JVD noted. Lungs: CTA bilaterally, moderate effort, mild decrease BL bases, no rales, ronchi or wheezing. Heart: Regular rate and rhythm; no gallop, rub audible. Abdomen: soft, NTTP, ND, normal BS, no HSM. Extremities: no cyanosis, clubbing, or edema. 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 Psychiatric: affect appears normal, no acute evidence of depressive or anxiety feelings. - Physical Exam Vital Signs Temp Pulse Resp BP Pulse Ox 96.9 F L 87 9 L 135/98 H 100 05/07/19 16:44 05/07/19 18:52 05/07/19 18:52 05/07/19 18:52 05/07/19 18:52 Oxygen Delivery Method Room Air Weight: 121 lb Body Mass Index (BMI) 23.6 Finger Stick Blood Glucose 91 Laboratory Tests Past 24 Hrs 05/07/19 05/07/19 05/07/19 17:18 17:18 17:18 WBC 9.3 RBC 4.39 Hgb 13.0 Hct 38.6 MCV 87.9 MCH 29.6 MCHC 33.7 RDW 12.5 RDW Differential 40.4 Plt Count 340 MPV 9.5 Immature Gran % (Auto) 0.100 Neut % (Auto) 55.4 Lymph % (Auto) 32.7 [place] % (Auto) 10.2 H Eos % (Auto) 1.2 Baso % (Auto) 0.4 Absolute Neuts (auto) 5.2 Absolute Lymphs (auto) 3.05 Total Counted Not Reportable PT 12.7 INR 1.0 APTT 28.3 Sodium 138 Potassium 3.5 Chloride 107 Carbon Dioxide 26.0 Anion Gap 5 BUN 19 H Creatinine 0.83 Estim Creat Clear Calc 58.25 Est GFR (MDRD) Af Amer 94 Est GFR (MDRD) Non-Af 77 BUN/Creatinine Ratio 23.0 H Glucose 91 Calcium 8.5 Troponin I < 0.015 Assessment/Plan All Active Problems TIA (transient ischemic attack) (Acute) The patient is a 48 y/o F w/ PMHx: Hx CVA x 2, most recently 2018 w/ R sided hemiplegia, expressive aphasia which has improved to fine motor R sided only w/ known occlusion L ICA, HTN, HLD, Hx Occular Migraine w/ L eye vision changes who presents to the [facility] ED on 05/07/19 with onset 05/06/19 transient L eye vision changes x 2 days. (1) Transient L Eye Vision changes concerning for TIA versus Occular Migraine: Work-up in the ED included T 96.9, heart rate 93, BP 153/75, respiratory rate 16, 98% on room air, unremarkable CBC, unremarkable coags, unremarkable BMP, troponin less than 0.015, CTA head with interval progression of diminished flow related enhancement in the petrous segment of the left ICA without jakob occlusi on, stable decreased flow related enhancement of the left supraclinoid and cavernous ICA segments without jakob occlusion, stable decreased flow related enhancement of the left M1 segment of the MCA, CTA Neck w/ complete occlusion of the proximal left ICA for a length of 13 mm, distal to this severely diminished flow related enhancement in the ICA extending to the level of the petrous segment, stable compared to prior study, right carotid system and bilateral vertebral arteries patent, EKG w/ SR without acute evidence of ischemia. Neurology, Dr. Armendariz consulted per ED and discussed case with requested repeat MRI evaluation, stable carotids. Will admit to PCU, will obtain MRI Brain, ECHO, PT/OT/Speech/Nutrition evaluation per protocol. Will continue consult with Neurology for evaluation. Will allow permissive HTN, maintain on asa w/ consideration addition plavix pending Neurology evaluation, statin w/ AM FLP, fall precautions, Mag, TSH pending. (2) Hx CVA w/ Carotid disease: Hx CVA x 2, most recently 2018 w/ R sided hemiplegia, expressive aphasia which has improved to fine motor R sided only w/ known occlusion L ICA, maintain on asa, consideration plavix addition pending Neurology assessment, continue statin, holding BP regimen for permissive temporarily, FLP in AM, mag and TSH pending. (3) Hypertension: Permissive pending MRI. (4) Hyperlipidemia: Continue home statin regimen. AM FLP. (5) Anxiety and depression: Continue home Wellbutrin, hydroxyzine regimen. (6) DVT prophylaxis: SCD, Lovenox. Code Visit OBSV E&M: [id number] Initial observation care L3
[2019-05-07 23:08] LABS: Bacteria 0 SEEN /hpf (None Seen); Mucous, Urine 0 SEEN /hpf (<or=2+); Red Blood Cells-Urine 0 SEEN /hpf (0-5); White Blood Cells 0 SEEN /hpf (0-5)
[2019-05-07 23:10] LABS: Color, Urine Yellow (Yellow); Glucose, Dipstick 50 mg/dl (Normal); Ketone-Dipstick Negative (Negative); Leukocyte Esterase-Dipstick Negative /ul (Negative); Nitrite-Dipstick Negative (Negative); Occult Blood-Urine Negative /ul (Negative); Protein-Dipstick Negative (Negative); Urine Bilirubin Dipstick Negative (Negative); Urine Clarity Clear (Clear); Urine Urobilinogen Normal (Normal); Urine pH 6.5 (5.0 - 8.0)
[2019-05-07 23:13] LABS: Magnesium 1.9 mg/dL (1.6-2.6); Thyroid Stim Hormone (TSH) 4.55 uIU/mL (0.358-3.74)
[2019-05-07 23:23] LABS: Amphetamine Urine VISTA NEGATIVE (<1000 ng/mL); Barbiturate Urine VISTA NEGATIVE (< 200 ng/mL); Benzodiazepine Urine VISTA NEGATIVE (< 200 ng/mL); Cocaine Urine VISTA NEGATIVE (< 300 ng/mL); Ecstacy Urine VISTA POSITIVE (< 500 ng/mL); Methadone Urine VISTA NEGATIVE (< 300 ng/mL); PCP Urine VISTA NEGATIVE (< 25 ng/mL); THC Urine VISTA POSITIVE (< 50 ng/mL); Vista UDS pH Range 6
[2019-05-07] MEDS: Aspirin 81 MG TAB.CHEW PO (23:28)
[2019-05-07] MEDS: Atorvastatin Calcium 20 MG Tablet PO (23:28)
[2019-05-07] MEDS: hydrOXYzine 10 MG Tablet PO (23:28)
[2019-05-07] MEDS: buPROPion (XL) 150 MG TABLET.XL PO (23:28)
[2019-05-07 23:36] LABS: Squamous Epithelial Cells - UA 0-5 SEEN /hpf (5-10)
[2019-05-08] VITALS (8 sets, daily range): BP systolic 105–159; BP diastolic 59–94; PULSE 69–89; RESP 13–18; TEMP 36.7–36.8; O2SAT 97–100; BMI 24.0
[2019-05-08 04:41] LABS: Cholesterol 120 mg/dL (200); High Density Lipoprotein 46 mg/dL; Triglycerides 73 mg/dL; Very Low Density Lipoprotein 15 mg/dL (5-40)
--- NOTE | 2019-05-08 05:55 | ECHOD_ITS ---
Reason For Study: TIA/CVA Procedure This was a 2D Doppler, Color Flow transthoracic echocardiogram. Exam performed portable in patient room. Left Ventricle Normal LV size. Left ventricular systolic function is normal. The estimated ejection fraction is 65 %. No evidence for diastolic dysfunction. No regional wall motion abnormalities noted. Right Ventricle Normal RV size. Normal systolic function. Atria Normal left atrium. Normal right atrium. Aneurysmal atrial septum. No doppler evidence for ASD. Mitral Valve There is no mitral annular calcification. Normal mitral valve. Trivial mitral valve insufficiency. Tricuspid Valve Normal tricuspid valve. Trivial tricuspid valve insufficiency. Aortic Valve Trisinus/trileaflet aortic valve. Mild focal aortic valve calcification. Pulmonic Valve The pulmonic valve is not well visualized. Great Vessels Normal sized aortic root. Pericardium/Pleural No pericardial effusion. MMode/2D Measurements & Calculations LVIDd: 4.0 cm IVSd: 0.78 cm Ao root diam: 2.9 cm LVIDs: 2.2 cm LVPWd: 0.79 cm LA dimension: 2.8 cm RVDd: 2.7 cm FS: 43.5 % LAV(MOD-bp): 35.6 ml LA A4 area: 15.1 cm2 RA A4 area: 11.5 cm2 LAV(MOD-bp) Indexed: 23.8 ml/m2 LAV(MOD-sp2): 31.6 ml LAV(MOD-sp4): 38.0 ml Time Measurements MV dec time: 0.17 sec Doppler Measurements & Calculations MV E max keegan: 105.7 cm/sec Lat Peak E' Keegan: 19.7 cm/sec Med Peak E' Keegan: 11.7 cm/sec MV A max keegan: 65.7 cm/sec E/E' lat: 5.4 E/E' med: 9.0 MV E/A: 1.6 MV V2 max: 101.1 cm/sec MV P1/2t max keegan: 101.1 cm/sec Ao V2 max: 133.9 cm/sec MV max P.1 mmHg MV P1/2t: 84.4 msec Ao max P.2 mmHg MV V2 mean: 55.5 cm/sec MV dec slope: 350.9 cm/sec2 MV mean P.5 mmHg MVA(P1/2t): 2.6 cm2 MV V2 VTI: 24.5 cm LV V1 max: 114.9 cm/sec PA V2 max: 96.3 cm/sec LV V1 max P.3 mmHg Interpretation Summary Left ventricular systolic function is normal. The estimated ejection fraction is 65 %. Trivial mitral valve insufficiency. Mild focal aortic valve calcification. Trivial tricuspid valve insufficiency. No evidence for diastolic dysfunction. Comment: Transthoracic echocardiogram from 09-13-2018: Reported a negative agitated saline contrast study for right to left intra-atrial shunt. Ordering Physician: Yokasta Gustafson Referring Physician: ELLIE FREEDMAN Performed By: Petros Evans RCS
--- NOTE | 2019-05-08 09:00 | MRI_ITS ---
STUDY: MRI BRAIN WITHOUT CONTRAST REASON FOR EXAM: Female, 48 years old. CVA, ocular H/A, vision changes, 2 prior strokes with similair symptoms. TECHNIQUE: Standardized multiplanar fat and water weighted pulse sequences were obtained. COMPARISON: August 23, 2018 FINDINGS: Normal size of the ventricles and extra-axial spaces for the patient's age. Normal white matter tracts of the supratentorial brain. Left basal ganglia chronic lacunar infarct is again noted. Normal thalami. There is no extra-axial fluid accumulation. There is loss of the left ICA flow void. Normal sella turcica, pituitary gland, infundibular stalk, optic chiasm and hypothalamus. Normal tectal plate and pineal gland. Normal midbrain, amy and medulla. Normal cerebellum. Normal basal cisterns. MRI/Brain without Contrast IMPRESSION: No acute intracranial abnormality. Left basal ganglia chronic infarct. Electronically Signed: Irlanda Anderson MD at 14:35 EDT Tel , Service support ,
[2019-05-08] MEDS: 0.9% Normal Saline 1,000 ML 100 ML IV (09:44)
--- NOTE | 2019-05-08 11:09 | CON.PCM_ITS ---
Reason for Consult Date of Consultation: 05/08/19 Reason for Consultation: possible cva History of Present Illness: The patient is a 48 year old F presents as below, now feels normal. also history of ocular migraine and low blood pressure, relates symptoms worse when standing, improved when supine. reports 2 previous strokes, follows with dr nath in [place]. reports 100% left ica occlusion due to secondary smoke and high cholesterol. reports may actually be right ica occlusion. reports right side was affected how mostly normal. per admit note:The patient is a 48 y/o F w/ PMHx: Hx CVA x 2, most recently 2018 w/ R sided hemiplegia, expressive aphasia which has improved to fine motor R sided only w/ known occlusion L ICA, HTN, HLD, Hx Occular Migraine w/ L eye vision changes who presents to the [facility] ED on 05/07/19 with onset 05/06/19 initially L eye vision changes, 1st peripheral noting vision foggy when going from seated to standing position and eventually resolved and the 2nd time on day of ED presentation while hiking w/ noted vision changes noting field of bunch with ability to differentiate shades but unable to differentiate objects, eventually resolving as she walked earlier in the day with admitted L sided temporal throbbing, not severe and no sound sensitivity, not consistent with her prior occular migraine history. She also notes that she has been having general neck discomfort and was worried that it was her carotid disease worsening. Work- up in the ED included T 96.9, heart rate 93, BP 153/75, respiratory rate 16, 98% on room air, unremarkable CBC, unremarkable coags, unremarkable BMP, troponin less than 0.015, CTA head with interval progression of diminished flow related enhancement in the petrous segment of the left ICA without jakob occlusion, stable decreased flow related enhancement of the left supraclinoid and cavernous ICA segments without jakob occlusion, stable decreased flow related enhancement of the left M1 segment of the MCA, CTA Neck w/ complete occlusion of the proximal left ICA for a length of 13 mm, distal to this severely diminished flow related enhancement in the ICA extending to the level of the petrous segment, stable compared to prior study, right carotid system and bilateral vertebral arteries patent, EKG w/ SR without acute evidence of ischemia. Neurology, Dr. Armendariz consulted per ED and discussed case with requested repeat MRI evaluation, stable carotids. Past Medical History Past Medical History (Chronic Problems): Chronic Problems Ocular migraine (Chronic) CVA (cerebral vascular accident) (Chronic) Anxiety and depression (Chronic) Second hand tobacco smoke exposure (Chronic) HTN (hypertension) (Chronic) HLD (hyperlipidemia) (Chronic) Carotid disease, bilateral (Chronic) Allergies yellow dye Adverse Reaction (Verified 05/07/19 16:46) Rash Home Medications: Ambulatory Orders Medication Instructions Recorded Aspirin [Aspirin EC] 81 mg PO DAILY 05/07/19 Atorvastatin Calcium [Lipitor] 20 mg PO QHS 05/07/19 Hydroxyzine HCl 10 mg PO DAILY 05/07/19 Lisinopril [Zestril] 5 mg PO DAILY 05/07/19 buPROPion XL [Wellbutrin Xl] 150 mg PO DAILY 05/07/19 Surgical History: - - x 1. Psychiatric History: Anxiety, Depression [employer]STING [employer]LL[employer] BASTER History: No pertinent [employer]LL[employer] BASTER history Lives: Spouse/ Significant Other - Lives with her and son. Smoking Status: Never smoker Tobacco Use: Secondhand Alcohol: None Drugs: None - *Family History Maternal History Items: - - Patient notes a notable maternal family history of several strokes, severe debility, bedbound status as result, coronary disease with history of MIs, hypertension, hyperlipidemia. Paternal History Items: - - Patient notes a paternal family history of heart disease, coronary disease. Patient Problems: Active and Suspected Problems TIA (transient ischemic attack) (Acute) - Physical Exam General: Alert, Oriented x3, Cooperative, No apparent distress HEENT: PERRLA, EOMI Neurological: Cranial nerves II-XII grossly intact, Deep Tendon Reflexes 2+/4 and Symmetrical, Neuro grossly intact, Motor Exam 5/5 strength throughout, Muscle tone normal, Sensory exam intact to light touch and pain, Coordination normal Psych/Mental Status: Normal Affect, Alert and oriented to time, place, person, mood and affect Vital Signs Temp Pulse Resp BP Pulse Ox 36.8 C 86 13 133/94 H 100 05/08/19 09:31 05/08/19 09:31 05/08/19 09:31 05/08/19 09:31 05/08/19 09:31 Oxygen Delivery Method Room Air Weight: 55.5 kg Body Mass Index (BMI) 24.0 Finger Stick Blood Glucose 91 Intake and Output for Last 24 Hours 05/06/19 05/07/19 05/08/19 23:59 23:59 23:59 Intake Total 240 / 240 832 / 832 Balance 240 / 240 832 / 832 Laboratory Tests Past 24 Hrs 05/07/19 05/07/19 05/07/19 17:18 17:18 17:18 WBC 9.3 RBC 4.39 Hgb 13.0 Hct 38.6 MCV 87.9 MCH 29.6 MCHC 33.7 RDW 12.5 RDW Differential 40.4 Plt Count 340 MPV 9.5 Immature Gran % (Auto) 0.100 Neut % (Auto) 55.4 Lymph % (Auto) 32.7 [place] % (Auto) 10.2 H Eos % (Auto) 1.2 Baso % (Auto) 0.4 Absolute Neuts (auto) 5.2 Absolute Lymphs (auto) 3.05 Total Counted Not Reportable PT 12.7 INR 1.0 APTT 28.3 Sodium 138 Potassium 3.5 Chloride 107 Carbon Dioxide 26.0 Anion Gap 5 BUN 19 H Creatinine 0.83 Estim Creat Clear Calc 58.25 Est GFR (MDRD) Af Amer 94 Est GFR (MDRD) Non-Af 77 BUN/Creatinine Ratio 23.0 H Glucose 91 Calcium 8.5 Magnesium Troponin I < 0.015 Triglycerides Cholesterol LDL Cholesterol VLDL Cholesterol HDL Cholesterol TSH Urine Color Urine Clarity Urine pH Ur Specific [place] Urine Protein Urine Glucose (UA) Urine Ketones Urine Occult Blood Urine Nitrite Urine Bilirubin Urine Urobilinogen Ur Leukocyte Esterase Urine RBC Urine WBC Ur Squamous Epith Cells Urine Bacteria Urine Mucus Urine Opiates Screen Urine Methadone Screen Ur Barbiturates Screen Ur Phencyclidine Scrn Ur Amphetamines Screen U Methamphetamin-MDMA U Benzodiazepines Scrn Urine Cocaine Screen U Cannabinoids Screen Ur Drug Screen Comment 05/07/19 05/07/19 05/07/19 22:30 22:45 22:45 WBC RBC Hgb Hct MCV MCH MCHC RDW RDW Differential Plt Count MPV Immature Gran % (Auto) Neut % (Auto) Lymph % (Auto) [place] % (Auto) Eos % (Auto) Baso % (Auto) Absolute Neuts (auto) Absolute Lymphs (auto) Total Counted PT INR APTT Sodium Potassium Chloride Carbon Dioxide Anion Gap BUN Creatinine Estim Creat Clear Calc Est GFR (MDRD) Af Amer Est GFR (MDRD) Non-Af BUN/Creatinine Ratio Glucose Calcium Magnesium 1.9 Troponin I < 0.015 Triglycerides Cholesterol LDL Cholesterol VLDL Cholesterol HDL Cholesterol TSH 4.55 H Urine Color Yellow Urine Clarity Clear Urine pH 6.5 Ur Specific [place] 1.010 Urine Protein Negative Urine Glucose (UA) 50 H Urine Ketones Negative Urine Occult Blood Negative Urine Nitrite Negative Urine Bilirubin Negative Urine Urobilinogen Normal Ur Leukocyte Esterase Negative Urine RBC 0 SEEN Urine WBC 0 SEEN Ur Squamous Epith Cells 0-5 SEEN Urine Bacteria 0 SEEN Urine Mucus 0 SEEN Urine Opiates Screen NEGATIVE Urine Methadone Screen NEGATIVE Ur Barbiturates Screen NEGATIVE Ur Phencyclidine Scrn NEGATIVE Ur Amphetamines Screen NEGATIVE U Methamphetamin-MDMA POSITIVE H U Benzodiazepines Scrn NEGATIVE Urine Cocaine Screen NEGATIVE U Cannabinoids Screen POSITIVE H Ur Drug Screen Comment 05/08/19 05/08/19 00:25 04:00 WBC RBC Hgb Hct MCV MCH MCHC RDW RDW Differential Plt Count MPV Immature Gran % (Auto) Neut % (Auto) Lymph % (Auto) [place] % (Auto) Eos % (Auto) Baso % (Auto) Absolute Neuts (auto) Absolute Lymphs (auto) Total Counted PT INR APTT Sodium Potassium Chloride Carbon Dioxide Anion Gap BUN Creatinine Estim Creat Clear Calc Est GFR (MDRD) Af Amer Est GFR (MDRD) Non-Af BUN/Creatinine Ratio Glucose Calcium Magnesium Troponin I < 0.015 < 0.015 Triglycerides 73 Cholesterol 120 LDL Cholesterol 59 VLDL Cholesterol 15 HDL Cholesterol 46 TSH Urine Color Urine Clarity Urine pH Ur Specific [place] Urine Protein Urine Glucose (UA) Urine Ketones Urine Occult Blood Urine Nitrite Urine Bilirubin Urine Urobilinogen Ur Leukocyte Esterase Urine RBC Urine WBC Ur Squamous Epith Cells Urine Bacteria Urine Mucus Urine Opiates Screen Urine Methadone Screen Ur Barbiturates Screen Ur Phencyclidine Scrn Ur Amphetamines Screen U Methamphetamin-MDMA U Benzodiazepines Scrn Urine Cocaine Screen U Cannabinoids Screen Ur Drug Screen Comment Current Home Med List Medication Instructions Recorded Confirmed Type Aspirin [Aspirin EC] 81 mg PO DAILY 05/07/19 05/07/19 History Atorvastatin Calcium [Lipitor] 20 mg PO QHS 05/07/19 05/07/19 History Hydroxyzine HCl 10 mg PO DAILY 05/07/19 05/07/19 History Lisinopril [Zestril] 5 mg PO DAILY 05/07/19 05/07/19 History buPROPion XL [Wellbutrin Xl] 150 mg PO DAILY 05/07/19 05/07/19 History Current Medications Generic Name Dose Route Start Last Admin Trade Name Freq PRN Reason Stop Dose Admin Acetaminophen 650 mg 05/07/19 21:49 Tylenol PO Q6H PRN PRN Non-cardiac pain (mod-severe) Al Hydroxide/Mg Hydroxide 15 - 30 ml 05/07/19 21:49 Mylanta Ii PO Q4H PRN PRN INDIGESTION Albuterol Sulfate 2.5 mg 05/07/19 21:49 Ventolin Aerosols INHALATION Q2H PRN PRN dyspnea, wheezing Aspirin 81 mg 05/08/19 08:00 05/07/19 23:28 Aspirin, Baby PO 81 mg DAILY@0800 BERNY Administration Atorvastatin Calcium 20 mg 05/07/19 22:00 05/07/19 23:28 Lipitor PO 20 mg QHS BERNY Administration Bupropion HCl 150 mg 05/07/19 22:30 05/07/19 23:28 Wellbutrin Xl PO 150 mg QHS BERNY Administration Dextrose 0 gm 05/07/19 21:49 D50w Syringe IV X1 PRN Hypoglycemia Protocol Enoxaparin Sodium 40 mg 05/08/19 06:00 05/08/19 05:32 Lovenox SC Not Given DAILY@0600 BERNY Glucagon 1 mg 05/07/19 21:49 IM .X1 PRN Hypoglycemia Hydralazine HCl 5 mg 05/07/19 21:49 Apresoline Iv IV Q30M PRN sbp > 220/120 Hydroxyzine HCl 10 mg 05/07/19 22:30 05/07/19 23:28 Atarax Tablet PO 10 mg QHS BERNY Administration Sodium Chloride 1,000 mls @ 100 mls/hr 05/07/19 21:49 05/08/19 09:44 IV 100 mls/hr .Q10H BERNY Administration Labetalol HCl 10 mg 05/07/19 21:49 Trandate IV 05/08/19 21:50 Q10M PRN MAINTAIN BP < 220/120 Magnesium Hydroxide 30 ml 05/07/19 21:49 Milk Of Magnesia PO DAILY PRN Constipation Melatonin 3 mg 05/07/19 21:49 Melatonin PO QHS PRN PRN INSOMNIA Ondansetron HCl 4 mg 05/07/19 21:49 Zofran IV Q8H PRN PRN NAUSEA/VOMITING Sodium Chloride 5 - 15 ml 05/07/19 22:10 IV UD PRN SALINE FLUSH cta reviewed, left ICA stenosis and/or occlusion, present on prior studies. no mri in system Assessment/Plan All Active Problems TIA (transient ischemic attack) (Acute) suspect remote left carotid dissection, with intercurrent low blood pressure causing low flow phenomenon awaot mri keep sbp 120-140 asa statin
--- NOTE | 2019-05-08 18:04 | DCINST_ITS ---
- Discharge Diagnoses Current Active Problems: Current Active and Chronic Problems TIA (transient ischemic attack) (Acute) Ocular migraine (Chronic) CVA (cerebral vascular accident) (Chronic) Anxiety and depression (Chronic) Second hand tobacco smoke exposure (Chronic) HTN (hypertension) (Chronic) HLD (hyperlipidemia) (Chronic) Carotid disease, bilateral (Chronic) You will use the following diet at home:: No restrictions Your food should be the consistency of: Regular Your liquids should be the consistency of: Regular/Thin Discharge Activity: Return to Normal Activity Weight Bearing Status: Full weight bearing Allergies/Adverse Reactions: Allergies yellow dye Adverse Reaction (Verified 05/07/19 16:46) Rash Medications to take at Discharge Aspirin [Aspirin EC] 81 mg PO DAILY 05/07/19 Atorvastatin Calcium [Lipitor] 20 mg PO QHS 05/07/19 Hydroxyzine HCl 10 mg PO DAILY 05/07/19 Lisinopril [Zestril] 5 mg PO DAILY 05/07/19 buPROPion XL [Wellbutrin Xl] 150 mg PO DAILY 05/07/19 Primary Care Physician: Perfecto Murray MD [Primary Care Provider] - Please follow up with your Primary Care Physician in: in 2-3 weeks Test Results: Test results from this visit will be discussed in further detail at your follow- up appointment, if applicable.
--- NOTE | 2019-05-09 09:39 | PCM.DC.SUM ---
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 Patient had a past history of ischemic stroke which occurred in the fall 2017. Work-up in the emergency room revealed her in age to be 1, patient underwent a brain CT which did not show any acute process, CTA demonstrated a chronic occlusion of the right ICA. Neurology was contacted and the case was discussed with neurology, patient was placed in observation status on PCU and was seen in consultation by neurology, MRI of the brain was obtained which did not show any acute process. Etiology of the patient's complaints was unknown. On 05/08/2019, patient was seen and examined: On examination she appeared in good health and spirits. Vital signs as documented. Skin warm and dry and without overt rashes. Neck without JVD. Lungs clear. Heart exam notable for regular rhythm, normal sounds and absence of murmurs, rubs or gallops. Abdomen unremarkable and without evidence of organomegaly, masses, or abdominal aortic enlargement. Extremities nonedematous. Neuro: Cranial nerves II through XII are grossly intact, no focal motor deficits were noted, sensation to light touch and pinprick is intact. Psych: Patient is alert and oriented x3, she does not appear anxious or depressed On 05/08/2019, patient was seen and examined felt to be stable to be discharged home. - Physical Exam Vital Signs Temp Pulse Resp BP Pulse Ox 98.1 F 75 16 159/84 H 98 05/08/19 12:55 05/08/19 15:42 05/08/19 12:55 05/08/19 12:55 05/08/19 12:55 Oxygen Delivery Method Room Air Weight: 55.5 kg Body Mass Index (BMI) 24.0 Finger Stick Blood Glucose 91 Intake and Output for Last 24 Hours 05/07/19 05/08/19 05/09/19 23:59 23:59 23:59 Intake Total 240 / 240 2361 / 2361 Balance 240 / 240 2361 / 2361 Microbiology Past 72 Hours 05/07/19 22:45 Urine Culture - Preliminary Urine, Clean Catch Culture exhibits no growth. Discharge Activity: Return to Normal Activity Weight Bearing Status: Full weight bearing Home Medications: Medications to take at Discharge Aspirin [Aspirin EC] 81 mg PO DAILY 05/07/19 Atorvastatin Calcium [Lipitor] 20 mg PO QHS 05/07/19 Hydroxyzine HCl 10 mg PO DAILY 05/07/19 Lisinopril [Zestril] 5 mg PO DAILY 05/07/19 buPROPion XL [Wellbutrin Xl] 150 mg PO DAILY 05/07/19 Primary Care Physician: Perfecto Murray MD [Primary Care Provider] - Please follow up with your Primary Care Physician in: in 2-3 weeks Disposition: Home Minutes spent on discharge:: 30 Patient Condition:: Stable Medical Necessity - Tobacco Use Smoking Status: Never smoker Tobacco Use: Secondhand Meaningful Use Info Meaningful Use Diagnoses (Choose all that apply): None applicable Code Visit OBSV E&M: 58734 Observation care discharge
== END 2019-05-08 18:34 | disposition home or self-care (01) ==
LOC: ED 17:29 → PCU 20:36
PROVIDERS: Admitting Provider Family Medicine; Emergency Provider Emergency Medicine; Referring Provider Family Medicine; Visit Provider Internal Medicine
DX: H53.9 Unspecified visual disturbance (principal); E78.5 Hyperlipidemia, unspecified; F41.9 Anxiety disorder, unspecified; F32.9 Major depressive disorder, single episode, unspecified; I10 Essential (primary) hypertension; I69.351 Hemiplegia and hemiparesis following cerebral infarction affecting right dominant side; I69.320 Aphasia following cerebral infarction; Z79.899 Other long term (current) drug therapy; Z79.82 Long term (current) use of aspirin
CPT/HCPCS: 36415; 70496; 70498; 70551; 71045; 80048; 80061; 80307; 81001; 83735; 84443; 84484; 85025; 85610; 85730; 87086; 87088; 92523; 93005; 93306; 96360; 96361; 97162; 97802; 99218; 99285; J7030; Q9967; A4216; G0378

== ENCOUNTER → 2019-10-05 13:25 | Outpatient (CLI) | payer BC, SELFPAY ==
[2019-05-08 10:21] VITALS: BMI 24.0
[2019-10-10 12:07] LABS: Age Gdln ACOG Testing 30-65 (.)
[2019-10-10 13:22] LABS: HPV APTIMA, High Risk Negative (Negative)
[2019-10-10 13:24] LABS: HPV Reflexed? YES, CHARGE PATIENT
== END ==
PROVIDERS: Referring Provider Obstetrics & Gynecology; Visit Provider Obstetrics & Gynecology
DX: Z12.4 Encounter for screening for malignant neoplasm of cervix (principal)
CPT/HCPCS: 87624; 88175; G0145

== ENCOUNTER → 2019-10-20 08:19 | Outpatient (CLI) | payer BC, SELFPAY ==
[2019-05-08 10:21] VITALS: BMI 24.0
--- NOTE | 2019-10-20 08:22 | BI_ITS ---
MAMMOGRAPHY - BILATERAL SCREENING REASON FOR EXAM: Female, 49 years old. Routine annual screening examination. PERTINENT HISTORY: Aunt with breast cancer. TECHNIQUE: Digital bilateral breast sehila (3D mammographic acquisition) in the CC and MLO projections. 2-D mediolateral oblique (MLO) and craniocaudad (CC) views of both breasts were obtained. CAD: Full Field Digital Mammography with Computer Added Detection was performed. COMPARISON: Comparison is made with prior outside examination of August 06, 2014. FINDINGS: Breast Composition: The breasts are heterogeneously dense, which may obscure small masses. There are no dominant masses or suspicious calcifications. No other significant abnormalities are identified. There has been no significant change since the prior study. BI/SCREEN MAMM (CAD) W/SHEILA BILAT IMPRESSION: Stable bilateral screening mammogram. Yearly follow-up mammogram recommended. (A) ASSESSMENT CATEGORY: BIRADS Category 1: Negative. A letter regarding these results will be sent to the patient by the facility within 30 days. Approximately 10% of breast cancers are not detected by mammography. A normal mammogram should not delay biopsy of a clinically suspicious abnormality. [id number] Electronically Signed: Damion Mendoza, at 10:37 EST , Service support ,
== END ==
PROVIDERS: Referring Provider Obstetrics & Gynecology; Visit Provider Obstetrics & Gynecology
DX: Z12.31 Encounter for screening mammogram for malignant neoplasm of breast (principal)
CPT/HCPCS: 77063; 77067

== ENCOUNTER 2019-11-19 11:17 | Observation (INO) | payer BC, SELFPAY ==
[2019-05-08 10:21] VITALS: BMI 24.0
[2019-11-19] VITALS (11 sets, daily range): BP systolic 117–172; BP diastolic 79–106; PULSE 80–109; RESP 11–27; TEMP 36.8–37.1; O2SAT 93–100; BMI 20.6; BMI 23.5
--- NOTE | 2019-11-19 11:27 | EKG12_ITS ---
Test Reason : NEURO Blood Pressure : / mmHG Vent. Rate : 092 BPM Atrial Rate : 092 BPM P-R Int : 130 ms QRS Dur : 064 ms QT Int : 348 ms P-R-T Axes : 059 060 055 degrees QTc Int : 430 ms Normal sinus rhythm Normal ECG Confirmed by JEANNINE DAI, CHAKA ([id number]), senior technical editor WALESKA GR ([id number]) on 11/21/2019 10:45:37 AM Referred By: Shaye Yancey Confirmed By:CHAKA PAEZ MD
--- NOTE | 2019-11-19 11:27 | CT_ITS ---
STUDY: CT BRAIN WITHOUT CONTRAST REASON FOR EXAM: Female, 49 years old. Right sided leg weakness when going up steps, hx CADADIL syndrome. RADIATION DOSAGE (If Supplied By Facility): CTDIvol = ( 44.99 ) mGy, DLP = ( 745.49 ) mGycm TECHNIQUE: Transaxial CT imaging of the brain was performed without administration of intravenous contrast material. Individualized dose optimization techniques were used for this CT. COMPARISON: Comparison is made with prior study dated August 21, 2018. FINDINGS: Normal soft tissue structures. Normal calvarium. Normal size ventricles and extra-axial spaces for the patient''s age. Stable focal encephalomalacia in the left temporoparietal lobe as well as the left insular cortex. Normal brainstem. Normal cerebellum. There is no intracranial hemorrhage. There are no findings of an acute ischemic infarction. Normal visualized paranasal sinuses. CT/Brain/Head without Contrast IMPRESSION: Stable examination. No acute abnormality is seen. Electronically Signed: Damion Mendoza, at 12:20 EST , Service support ,
--- NOTE | 2019-11-19 11:31 | ED.VIS.GEN ---
History of Present Illness Chief Complaint: Neuro S/Sx Informant: Patient Onset: Today Context: Sudden Onset Timing: Continuous Quality: Weakness right lower extremity Location: Right lower extremity Current Severity: Mild Maximum Severity: Moderate Worsened by: Nothing Relieved by: Nothing Associated Symptoms: No other symptoms Narrative: CTA head with interval progression of diminished flow related enhancement in the petrous segment of the left ICA without jakob occlusion, stable decreased flow related enhancement of the left supraclinoid and cavernous ICA segments without jakob occlusion, stable decreased flow related enhancement of the left M1 segment of the MCA, CTA Neck w/ complete occlusion of the proximal left ICA for a length of 13 mm, distal to this severely diminished flow related enhancement in the ICA extending to the level of the petrous segment, stable compared to prior study, right carotid system and bilateral vertebral arteries patent, EKG w/ SR without acute evidence of ischemia. Neurology, Dr. Armendariz consulted per ED and discussed case with requested repeat MRI evaluation, stable carotids. Per H&P offered by Dr. Yokasta Gustafson May 07, 2019 Patient is a 49-year-old woman who was diagnosed fall 2017 with CVA. She presents today because at 0740 she had weakness of her right lower extremity. This occurred prior to going to work. She was unable to go up steps. Blood pressure was elevated with a systolic of 194. Patient denies headache, visual, ocular auditory symptoms. Denies trouble with speech or swallowing. She states yesterday she had right lower back pain. There was no radiation. She denies bowel bladder dysfunction. She denies saddle paresthesia or anesthesia. She states her right leg still feels heavy. Patient states she called her PCP and neurologist who recommended she come to the emergency department. Prior similar symptoms: Yes Recent Illness/Hospitalization: Yes - May 07, 2019 - Past Medical History (1) TIA (transient ischemic attack) Status: Acute (2) Anxiety and depression Status: Chronic (3) HLD (hyperlipidemia) Status: Chronic (4) HTN (hypertension) Status: Chronic (5) Ocular migraine Status: Chronic Past Medical History - Allergies and Home Meds Allergies/Adverse Reactions: Allergies yellow dye Adverse Reaction (Verified 11/19/19 11:25) Rash Primary Care Physician: Perfecto Murray MD [Primary Care Provider] - Prior records reviewed: Yes Surgical History: - - x 1. Lives: Spouse/ Significant Other Smoking Status: Never smoker Alcohol: Rare Drugs: None - Family History Maternal Family History: Reports: - - Patient notes a notable maternal family history of several strokes, severe debility, bedbound status as result, coronary disease with history of MIs, hypertension, hyperlipidemia. Paternal Family History: Reports: - - Patient notes a paternal family history of heart disease, coronary disease. Review of Systems General: Denies: Chills, Fever, Sweats Eyes: Denies: Visual changes - bilaterally, Blurred Vision - bilaterally, Diplopia ENT: Denies: Bilateral ear pain, Rhinorrhea, Sore throat Cardiovascular: Denies: Chest pain, Palpitations Respiratory: Denies: Dyspnea, Cough, Dyspnea on exertion Gastrointestinal: Denies: Abdominal pain, Nausea, Vomiting, Diarrhea, Melena, Hematochezia Genitourinary: Denies: Dysuria, Hematuria, Frequency Musculoskeletal: Reports: Back pain - Right lower back pain yesterday denies back pain today.. Denies: Myalgias, Arthralgias, Neck pain, Swelling, Extremity Pain, -, - Skin: Denies: Rash, Wounds Neurological: Reports: Weakness. Denies: Headache, Parasthesia, Numbness, -, - Psych: Reports: Depression, Anxiety Hematologic: Denies: Easy bruising, Easy bleeding Allergy: Denies: Uticaria, Swelling of the mouth Physical Exam Vital Signs/Narrative: Vital Signs Temp Pulse Resp BP Pulse Ox 11/19/19 11:18 98.3 F 109 H 27 H 172/106 H 93 Inital Vital Signs reviewed: Yes General: Well nourished, Well developed, No Acute Distress Head: Normocephalic, Atraumatic Eyes: Perrl, EOMI ENT: Moist mucous membranes, No rhinorrhea Neck: Supple, Nontender Cardiovascular: Regular rate, Regular rhythm, No murmurs Respiratory: No distress, CTA bilaterally, Chest nontender Abdomen: Soft, Nontender, Nondistended, Normal bowel sounds Back: Nontender, Normal Inspection Extremities: Nontender, No edema Skin: Normal color, No rash Neurological: Alert, Oriented x3, Cranial nerves II-XII grossly intact, Normal Strength, Normal Sensation Psychological: Normal affect, Normal Mood ED Disposition - Plan for ED Patient: Referrals: Perfecto Murray MD [Primary Care Provider] -
--- NOTE | 2019-11-19 11:37 | ED.VIS.STROK ---
History of Present Illness Chief Complaint: Neuro S/Sx Informant: Patient - Past Medical History (1) TIA (transient ischemic attack) Status: Acute (2) Anxiety and depression Status: Chronic (3) HLD (hyperlipidemia) Status: Chronic (4) HTN (hypertension) Status: Chronic (5) Ocular migraine Status: Chronic Past Medical History - Allergies and Home Meds Allergies/Adverse Reactions: Allergies yellow dye Adverse Reaction (Verified 11/19/19 11:25) Rash Primary Care Physician: Perfecto Murray MD [NON-STAFF] - Surgical History: - - x 1. Lives: Spouse/ Significant Other Smoking Status: Never smoker Alcohol: Rare Drugs: None - Family History Maternal Family History: Reports: - - Patient notes a notable maternal family history of several strokes, severe debility, bedbound status as result, coronary disease with history of MIs, hypertension, hyperlipidemia. Paternal Family History: Reports: - - Patient notes a paternal family history of heart disease, coronary disease. STROKE Vital Signs/Narrative: Vital Signs Temp Pulse Resp BP Pulse Ox 11/19/19 11:18 98.3 F 109 H 27 H 172/106 H 93 - NIHSS Initial 1a Level of Consciousness: 0 1b LOC Questions (Score 2 if aphasic/stupor): 0 1c LOC Commands (Only score 1st attempt): 0 2 Best Gaze (If aphasic, use reflexive mvmts.): 0 3 Visual: 0 4 Facial Palsy: 0 5 Motor Arm Right (UN = amputation/fusion): 0 5 Motor Arm Left: 0 6 Motor Leg Right: 1 6 Motor Leg Left: 0 7 Limb ataxia (Only + if out of proportion): 0 8 Sensory (Aphasia/stupor=0 or 1, coma=2): 0 9 Best Language: 0 10 Dysarthria (mute, coma=2, intubated=UN): 0 11 Extinction and Inattention (only scored if +): 0 Total Score: 1 Diagnostic/Tx/Re-eval Impressions Brain CT 11/19/19 11:27 IMPRESSION: Stable examination. No acute abnormality is seen. Electronically Signed: Damion Mendoza, at 12:20 EST , Service support , 11/19/19 11:27 Brain/Head without Contrast [CT] Stat Laboratory Results 11/19/19 11/19/19 11/19/19 11:30 11:30 11:30 WBC 6.8 RBC 4.88 Hgb 14.5 Hct 43.6 MCV 89.3 MCH 29.7 MCHC 33.3 RDW Std Deviation 39.2 RDW Coeff of Vinicius 12.0 Plt Count 352 MPV 9.5 Immature Gran % (Auto) 0.300 Neut % (Auto) 68.8 Lymph % (Auto) 21.2 [place] % (Auto) 8.2 Eos % (Auto) 0.9 Baso % (Auto) 0.6 Absolute Neuts (auto) 4.7 Absolute Lymphs (auto) 1.44 Nucleated RBC % 0 PT 13.8 INR 1.1 APTT 28.8 Sodium 136 Potassium 3.7 Chloride 106 Carbon Dioxide 26.0 Anion Gap 4 L BUN 15 Creatinine 0.94 Estim Creat Clear Calc 64.72 Est GFR (MDRD) Af Amer 81 Est GFR (MDRD) Non-Af 67 BUN/Creatinine Ratio 15.9 Glucose 105 Calcium 8.6 Troponin I < 0.015 CT without contrast is unremarkable. Laboratory tests are unremarkable. In light of patient's past medical history and symptoms will contact hospitalist for further inpatient testing PCU/observation - Medical Decision Making Stroke Team Activated: No Reviewed Inclusion/Exclusion criteria: No Was Patient considered for Endovascular Intervention?: No IV Alteplase (t-PA) Administered: No Initially documented H&P on general electronic record. This record was open to document NIH score and information needed for stroke patient. Informed at 1245 the patient developed dizziness. She was placed in Trendelenburg position. She states her symptoms are resolving. The hospitalist has been paged for further testing and observation. Her blood pressure has improved. Her blood pressure was not treated in the event this was a neurologic event recommendation is not to treat elevated blood pressure. ED Disposition - Plan for ED Patient: Disposition: Acute Care Hospital [facility] Diagnosis: Weakness of right lower extremity Referrals: Perfecto Murray MD [NON-STAFF] -
[2019-11-19 11:38] LABS: Absolute Lymphocyte Count 1.44 X10^3/uL (0.83-4.51); Absolute Neutrophil Count 4.7 X10^3/uL (2.0-7.7); Basophil# 0.04 X10^3/uL; Basophil% 0.6 % (0-1); Eosinophil# 0.06 X10^3/uL; Eosinophils% 0.9 % (0-5); Hematocrit 43.6 % (37-47); Hemoglobin 14.5 g/dL (12.0-15.0); Lymphocyte # 1.44 X10^3/ul (4.0); Lymphocyte % 21.2 % (19-41); Mean Corp Hgb Conc 33.3 g/dL (32-36); Mean Corpuscular Hgb 29.7 pg (27.0-32.0); Mean Corpuscular Volume 89.3 fL (81-99); Mean Platelet Vol. 9.5 fl (6.2-12.0); Monocyte# 0.56 X10^3/uL; Monocyte% 8.2 % (0-10); NRBC Flagged by Analyzer 0 % (0-5); Neutrophil # 4.67 X10^3/uL (2.7-7.7); Neutrophil % 68.8 % (47-70); Platelet Count 352 K/mm3 (150-450); RBC Distribution Width SD 39.2 fl (35.1-43.9); Red Blood Count 4.88 M/mm3 (4.2-5.4); White Blood Count 6.8 K/mm3 (4.4-11.0)
[2019-11-19 11:47] LABS: International Normalized Ratio 1.1; Partial Thromboplast Time 28.8 Seconds (24.1-36.2); Prothrombin Time (Protime)PT. 13.8 SECONDS (11.7-14.9)
[2019-11-19 11:54] LABS: BUN 15 mg/dL (7-18); Creatinine, Serum 0.94 mg/dL (0.55-1.02); EST Glomerular Filtration Rate 67 mL/min (>60); Estimated Creatinine Clearance 64.72 ml/min; Glucose 105 mg/dL (74-106)
[2019-11-19 11:55] LABS: Anion Gap 4 (5-15); BUN/Creat Ratio 15.9 RATIO (10-20); Calcium,Total 8.6 mg/dL (8.5-10.1); Chloride 106 mmol/L (98-107); Est Glom Filt Rate - Afr Amer 81 mL/min (>60); Potassium 3.7 mmol/L (3.5-5.1); Sodium Level 136 mmol/L (136-145)
--- NOTE | 2019-11-19 12:56 | HP.PCM_ITS ---
History of Present Illness Date of Admission: 11/19/19 Chief Complaint: right leg weakness The patient is a 49 year old F with a PMH of ischemic stroke, hypertension and depression. She was admitted to through the ED on 11/19/2019 with a complaint of right lower extremity weakness of sudden onset a few hours prior to presentation. Patient states she got out of her car to strip picker some things in her house and suddenly felt like her right leg was very weak and she could barely lift it. She managed to climb up to the stairs but felt very weak all the time and did not think should be able to go back to her car. However she was able someone energy to go back to her car and dropped her son at school and went to work. However at work she felt increasingly weak and so she called the squad to bring her to the ED. On admission in the ED, suddenly developed dizziness which resolved after she was placed in the Trendelenburg position. She also states that when she went into her house after she went up the stairs, she checked her blood pressure and it was 190 systolic so she took 10 mg of lisinopril. She usually takes 5 mg of lisinopril every evening and last dose was the previous night. In the ED, vitals were significant for blood pressure of 170/79 and respiratory rate of 11 was otherwise normal. CBC was unremarkable and BMP was unremarkable. Initial troponin was negative and EKG showed normal sinus rhythm. Chest x-ray showed no acute abnormality and was stable. She has been admitted to be managed for TIA. [] Past Medical History Past Medical History (Chronic Problems): Chronic Problems Ocular migraine (Chronic) CVA (cerebral vascular accident) (Chronic) Anxiety and depression (Chronic) Second hand tobacco smoke exposure (Chronic) HTN (hypertension) (Chronic) HLD (hyperlipidemia) (Chronic) Carotid disease, bilateral (Chronic) Allergies yellow dye Adverse Reaction (Verified 11/19/19 11:25) Rash Home Medications: Ambulatory Orders Medication Instructions Recorded Aspirin [Aspirin EC] 81 mg PO QHS 05/07/19 Atorvastatin Calcium [Lipitor] 20 mg PO QHS 05/07/19 Hydroxyzine HCl 10 mg PO QHS 05/07/19 Lisinopril [Zestril] 5 mg PO QHS 05/07/19 buPROPion XL [Wellbutrin Xl] 150 mg PO QHS 05/07/19 Surgical History: - - x 1. Psychiatric History: Anxiety, Depression [employer] History: No pertinent [employer] history Lives: Spouse/ Significant Other Smoking Status: Never smoker Alcohol: Rare Drugs: None - *Family History Maternal History Items: - - Patient notes a notable maternal family history of several strokes, severe debility, bedbound status as result, coronary disease with history of MIs, hypertension, hyperlipidemia. Paternal History Items: - - Patient notes a paternal family history of heart disease, coronary disease. Review of Systems Constitutional: Denies: Chills, Fever, Malaise, Weakness, Weight Change Eyes: Denies: Blurred vision, Double vision HEENT: Denies: Head Aches, Sinus Congestion, Sinus Drainage Cardiovascular: Denies: Chest Pain, Palpitations Respiratory: Denies: Cough, Shortness of breath at rest, Sputum production Gastrointestinal: Denies: Abdominal Pain, Nausea, Vomiting Genitourinary: Denies: Dysuria Musculoskeletal: Denies: Joint Pain, Joint Tenderness Skin: Denies: Rash, Wounds Neurological: Reports: Focal weakness. Denies: Balance problems, Blurred vision, Double vision, Change in Speech, Slurred speech, Difficulty swallowing, Headaches, Incoordination, Numbness, Tingling, Tremor Psychiatric: Denies: Anxiety, Depression, Homicidal Ideations, Suicidal Ideations Hematologic/ Lymphatic: Denies: Easy Bruising, Easy Bleeding VTE Information - Inpt Only VTE Present on Admission: No VTE Pharm Prophylaxis ordered?: Yes Patient Problems: Active and Suspected Problems Weakness of right lower extremity (Acute) - Physical Exam Vitals/I&O's: Vital Signs Temp Pulse Resp BP Pulse Ox 98.3 F 87 14 157/79 H 99 11/19/19 11:18 11/19/19 12:27 11/19/19 12:27 11/19/19 12:27 11/19/19 12:27 Oxygen Delivery Method Room Air Weight: 127 lb 10.362 oz Body Mass Index (BMI) 20.6 Finger Stick Blood Glucose 142 General: Alert, Oriented x3, Cooperative, No apparent distress HEENT: Atraumatic, PERRLA, EOMI, Normocephalic Oral: Moist Mucosa Neck: Supple, No JVD, Negative Carotid Bruits Lungs: Clear to auscultation, Normal air movement Cardiovascular: Regular rate, Regular Rhythm, Normal S1, Normal S2, No murmurs Abdomen: Bowel Sounds Present, Soft, Non Tender, Non-Distended, No Hepato- splenomegaly Extremities: No clubbing, No cyanosis, No edema, Capillary Refill Less than 3 Seconds Skin: No rashes, No breakdown Musculoskeletal: No Tenderness to Palpation of Joints or Extremities Lymphatic: No Cervical, Supraclavicular, or Inguinal Adenopathy Neurological: Cranial nerves II-XII grossly intact, - - power in all extremities is 5/5, normal sensation, tone and reflexes in all extremities Psych/Mental Status: Normal Affect, Appropriate, Alert and oriented to time, p lace, person, mood and affect Laboratory Results 11/19/19 11:30: WBC 6.8, RBC 4.88, Hgb 14.5, Hct 43.6, MCV 89.3, MCH 29.7, MCHC 33.3, RDW Std Deviation 39.2, RDW Coeff of Vinicius 12.0, Plt Count 352, MPV 9.5, Immature Gran % (Auto) 0.300, Neut % (Auto) 68.8, Lymph % (Auto) 21.2, [place] % (Auto) 8.2, Eos % (Auto) 0.9, Baso % (Auto) 0.6, Absolute Neuts (auto) 4.7, Absolute Lymphs (auto) 1.44, Nucleated RBC % 0 11/19/19 11:30: PT 13.8, INR 1.1, APTT 28.8 11/19/19 11:30: Sodium 136, Potassium 3.7, Chloride 106, Carbon Dioxide 26.0, Anion Gap 4 L, BUN 15, Creatinine 0.94, Estim Creat Clear Calc 64.72, Est GFR (MDRD) Af Amer 81, Est GFR (MDRD) Non-Af 67, BUN/Creatinine Ratio 15.9, Glucose 105, Calcium 8.6, Troponin I < 0.[address] 11/19/19 11:27 IMPRESSION: Stable examination. No acute abnormality is seen. Electronically Signed: Damion Mendoza, at 12:20 EST , Service support , Assessment/Plan All Active Problems TIA (transient ischemic attack) (Acute) Weakness of right lower extremity (Acute) 49 y/o admitted with a complaint of right LE focal weakness, which had resolved by time of admission. She Also has some associated dizziness. 1. Right lower extremity weakness due to TIA. * Patient has a history of CVA in 2018. On aspirin and statin from then * Symptoms had resolved by time of admission. * CT of brain was negative. Will get MRI of the brain and MRA of the head and neck with contrast. * Get 2D echo. * Saw neurology. * Says she had a 30-day event monitor when she last had a stroke and was negative. Will await neurology recommendations about whether she needs another 1. * Does have a strong family history of stroke she sees her mother and once and cousins have CADASIL syndrome. She was however tested and states she is negative. * PT OT consult. Check lipid panel and A1c. * 2. Hypertension: * On lisinopril 5 mg nightly. * On admission blood pressure was elevated in the 170s. Will await MRI results and allow for permissive hypertension now with subsequent goal of blood pressure less than 130/80 from tomorrow onwards. 3. Depression: On bupropion. DVT Prophylaxis: Lovenox Code Visit OBSV E&M: 14854 Initial observation care L3
--- NOTE | 2019-11-19 13:54 | MRI_ITS ---
STUDY: MRI BRAIN WITHOUT CONTRAST REASON FOR EXAM: Female, 49 years old. tia, right leg weakness, hx 2 prior cva, blockage lt carotid TECHNIQUE: Standardized multiplanar fat and water weighted pulse sequences were obtained. COMPARISON: CT of the brain November 19, 2019 _ MRI of the brain May 08, 2019 FINDINGS: Normal size of the ventricles and extra-axial spaces for the patient''s age. Normal white matter tracts of the supratentorial brain. There is an old infarct in left basal ganglia and temporal lobe.. Normal thalami. There is no extra-axial fluid accumulation. Normal flow voids within the major intracranial circulation suggesting patency by spin echo criteria. Normal sella turcica, pituitary gland, infundibular stalk, optic chiasm and hypothalamus. Normal tectal plate and pineal gland. Normal midbrain, amy and medulla. Normal cerebellum. Normal basal cisterns. Normal bilateral temporal bones. Normal bilateral internal auditory canals. Increased signal intensity within the mastoid air cells bilaterally consistent with inflammatory changes. No demonstrated orbital abnormality, within the constraints of a routine brain study. Normal visualized paranasal sinuses. Normal calvarium and skull base. Normal visualized soft tissue structures. Normal visualized upper cervical spine. No significant change since prior exam MRI/Brain without Contrast IMPRESSION: Old left basal ganglia infarct extending into the temporal lobe. No acute infarct at this time Electronically Signed: Sloan Faria MD at 15:59 EST , Service support ,
--- NOTE | 2019-11-19 13:54 | MRI_ITS ---
STUDY: MRA NECK WITH AND WITHOUT CONTRAST REASON FOR EXAM: Female, 49 years old. tia, right leg weakness, hx 2 prior cva, blockage lt carotid TECHNIQUE: 3-D [id number]-[id number] (TOF) imaging was performed in an 1.5 T MRI scanner. IV Dotarem 10ml was administered for the contrast enhanced images. COMPARISON: CTA of the neck May 07, 2019 FINDINGS: RIGHT CAROTID ARTERIES: Normal right common carotid artery (CCA). Normal right common carotid bulb. Normal origin of the right internal carotid (ICA) artery without a hemodynamically significant stenosis. Normal visualized cervical portion of the right internal carotid artery. Normal origin of the right external carotid artery (ECA). LEFT CAROTID ARTERIES: Normal left common carotid artery (CCA). Normal left common carotid bulb. High-grade stenosis of the origin of the left internal carotid (ICA) artery without a hemodynamically significant stenosis. Occluded cervical portion of the left internal carotid artery with reconstitution at the level of the cavernous carotid. Normal origin of the left external carotid artery (ECA). VERTEBRAL ARTERIES: Normal antegrade flow within the bilateral vertebral artery without a hemodynamically significant stenosis. MRI/MRA Neck WITH and W/O Contrast IMPRESSION: High-grade stenosis of the origin of the left internal carotid and occlusion more distally with reconstitution at the level of the cavernous carotid No other significant stenosis Electronically Signed: Sloan Faria MD at 16:05 EST , Service support ,
--- NOTE | 2019-11-19 14:01 | MRI_ITS ---
STUDY: MRA OF THE HEAD WITHOUT CONTRAST REASON FOR EXAM: Female, 49 years old. tia, right leg weakness, hx 2 prior cva, blockage lt carotid TECHNIQUE: 3-D [id number] (TOF) imaging was performed with MIPs. The study was performed unenhanced. COMPARISON: None. FINDINGS: Normal bilateral petrous carotid arteries. Normal right cavernous carotid artery with a normal supraclinoid bifurcation. There is reduced flow in the left cavernous carotid artery with a normal supraclinoid bifurcation. Normal right A1 segments of the anterior cerebral artery. Normal left A1 segments of the anterior cerebral artery. Anterior communicating artery not visualized consistent with normal variant. Normal bilateral A2 segments of the anterior cerebral arteries. Normal right M1 and M2 segments of the middle cerebral arteries, with a normal M1 bifurcation. Normal left M1 and M2 segments of the middle cerebral arteries, with a normal M1 bifurcation. Posterior communicating arteries are not visualized consistent with normal variant. Normal bilateral vertebral arteries. Normal basilar artery with a normal basilar bifurcation. The visualized bilateral superior cerebellar (SCA) arteries are normal. Normal bilateral P1, P2 and visualized P3 segments of the posterior cerebral arteries. There is no demonstrated aneurysm of the [place]. There is no major vessel occlusion or hemodynamically significant stenosis. There is no demonstrated abnormality of the visualized brain. MRI/MRA Head ONLY without Contrast IMPRESSION: Reduced flow in the left cavernous carotid and supraclinoid segment. No other significant stenotic lesion Electronically Signed: Sloan Faria MD at 16:00 EST , Service support ,
[2019-11-19 15:02] LABS: Cholesterol 142 mg/dL (200); High Density Lipoprotein 52 mg/dL; Triglycerides 58 mg/dL; Very Low Density Lipoprotein 12 mg/dL (5-40)
[2019-11-19] MEDS: Clopidogrel Bisulfate 75 MG Tablet PO (18:19)
[2019-11-19] MEDS: hydrOXYzine 10 MG Tablet PO (21:05)
[2019-11-19] MEDS: buPROPion (XL) 150 MG TABLET.XL PO (21:06)
[2019-11-19] MEDS: Lisinopril 5 MG Tablet PO (21:06)
[2019-11-19] MEDS: Atorvastatin Calcium 20 MG Tablet PO (21:06)
[2019-11-20 02:25] VITALS: BP 135/83; PULSE 79; RESP 18; TEMP 36.8; O2SAT 98
[2019-11-20 04:50] VITALS: PULSE 70
[2019-11-20] MEDS: Enoxaparin 40 MG/0.4 ML Syringe SC (05:21)
[2019-11-20] MEDS: Acetaminophen 325 MG Tablet 650 MG PO (06:12)
[2019-11-20 06:17] LABS: Absolute Lymphocyte Count 2.38 X10^3/uL (0.83-4.51); Absolute Neutrophil Count 4.1 X10^3/uL (2.0-7.7); Basophil# 0.05 X10^3/uL; Basophil% 0.7 % (0-1); Eosinophil# 0.11 X10^3/uL; Eosinophils% 1.5 % (0-5); Hematocrit 39.6 % (37-47); Hemoglobin 12.9 g/dL (12.0-15.0); Lymphocyte # 2.38 X10^3/ul (4.0); Lymphocyte % 32.2 % (19-41); Mean Corp Hgb Conc 32.6 g/dL (32-36); Mean Platelet Vol. 9.7 fl (6.2-12.0); Monocyte# 0.75 X10^3/uL; Monocyte% 10.1 % (0-10); NRBC Flagged by Analyzer 0 % (0-5); Neutrophil # 4.08 X10^3/uL (2.7-7.7); Neutrophil % 55.2 % (47-70); Platelet Count 321 K/mm3 (150-450); RBC Distribution Width CV 12.2 % (11.6-14.6); RBC Distribution Width SD 39.6 fl (35.1-43.9); Red Blood Count 4.45 M/mm3 (4.2-5.4); White Blood Count 7.4 K/mm3 (4.4-11.0)
[2019-11-20 06:36] LABS: Anion Gap 5 (5-15); BUN 13 mg/dL (7-18); BUN/Creat Ratio 15.5 RATIO (10-20); Calcium,Total 8.1 mg/dL (8.5-10.1); Chloride 106 mmol/L (98-107); Cholesterol 124 mg/dL (200); Creatinine, Serum 0.84 mg/dL (0.55-1.02); EST Glomerular Filtration Rate 76 mL/min (>60); Est Glom Filt Rate - Afr Amer 92 mL/min (>60); Estimated Creatinine Clearance 56.91 ml/min; Glucose 78 mg/dL (74-106); High Density Lipoprotein 47 mg/dL; Potassium 3.5 mmol/L (3.5-5.1); Sodium Level 138 mmol/L (136-145); Triglycerides 37 mg/dL; Very Low Density Lipoprotein 7 mg/dL (5-40)
[2019-11-20 06:50] VITALS: PULSE 68
--- NOTE | 2019-11-20 08:58 | CASEMGMT ---
SW completed a PHQ 9 with patient as she had a TIA. She scored a 5 which indicates mild Depression. However, the items patient scored higher on are things she states not related to Depression. For example, She has always had troubles falling asleep. Karley MCPHERSON ROTOPRINTER
[2019-11-20 09:10] VITALS: BP 118/70; PULSE 79; RESP 14; TEMP 36.1; O2SAT 99
--- NOTE | 2019-11-20 10:50 | DCINST_ITS ---
- Discharge Diagnoses Current Active Problems: Current Active and Chronic Problems Weakness of right lower extremity (Acute) You will use the following diet at home:: Cardiac Your food should be the consistency of: Regular Your liquids should be the consistency of: Regular/Thin Discharge Activity: Return to Normal Activity Weight Bearing Status: Weight bearing as tolerated Call your doctor if you observe: Dizziness, Fainting spells, - - focal weakness Instructions: What Is a TIA? Additional Instructions: to get referral to neurologist from PCP on outpatient basis Allergies/Adverse Reactions: Allergies yellow dye Adverse Reaction (Verified 11/19/19 11:25) Rash Medications to take at Discharge Hydroxyzine HCl 10 mg PO QHS 05/07/19 Lisinopril [Zestril] 5 mg PO QHS 05/07/19 buPROPion XL [Wellbutrin Xl] 150 mg PO QHS 05/07/19 Atorvastatin Calcium 40 mg PO QHS #30 tab 11/20/19 Clopidogrel Bisulfate [Plavix] 75 mg PO DAILY #30 tab 11/20/19 The following prescriptions were given: Atorvastatin Calcium 40 mg PO QHS #30 tab Transmission Status: Pending to [facility] Clopidogrel Bisulfate [Plavix] 75 mg PO DAILY #30 tab Transmission Status: Pending to [facility] Primary Care Physician: Perfecto Murray MD [NON-STAFF] - Please follow up with your Primary Care Physician in: one week Test Results: Test results from this visit will be discussed in further detail at your follow- up appointment, if applicable. Please Follow Up With: Bhavin Catherine NP-C When: one week Proposed Discharge Date: 11/20/19
--- NOTE | 2019-11-20 10:54 | DS.PCM_ITS ---
Discharge Date and Diagnosis Date of Admission: 11/19/19 Date of Discharge: 11/20/19 - Primary Discharge Diagnosis Active and Suspected Problems Weakness of right lower extremity (Acute) TIA - Secondary Discharge Diagnosis Chronic Problems Ocular migraine (Chronic) CVA (cerebral vascular accident) (Chronic) Anxiety and depression (Chronic) Second hand tobacco smoke exposure (Chronic) HTN (hypertension) (Chronic) HLD (hyperlipidemia) (Chronic) Carotid disease, bilateral (Chronic) Hospital Course and Treatment Imaging Results: Diagnostic Data Brain CT 11/19/19 11:27 IMPRESSION: Stable examination. No acute abnormality is seen. Electronically Signed: Damion Mendoza, at 12:20 EST , Service support , Brain MRI 11/19/19 13:54 IMPRESSION: Old left basal ganglia infarct extending into the temporal lobe. No acute infarct at this time Electronically Signed: Sloan Faria MD at 15:59 EST , Service support , Neck MRA 11/19/19 13:54 IMPRESSION: High-grade stenosis of the origin of the left internal carotid and occlusion more distally with reconstitution at the level of the cavernous carotid No other significant stenosis Electronically Signed: Sloan Faria MD at 16:05 EST , Service support , Head MRA 11/19/19 14:01 IMPRESSION: Reduced flow in the left cavernous carotid and supraclinoid segment. No other significant stenotic lesion Electronically Signed: Sloan Faria MD at 16:00 EST , Service support , neurology- SOC telemed Operations: None Procedures: None Summary of Care Provided: The patient is a 49 year old F with a PMH of ischemic stroke, hypertension and depression. She was admitted to through the ED on 11/19/2019 with a complaint of right lower extremity weakness of sudden onset a few hours prior to presentation. Patient states she got out of her car to pecan picker some things in her house and suddenly felt like her right leg was very weak and she could barely lift it. She managed to climb up to the stairs but felt very weak all the time and did not think should be able to go back to her car. However she was able someone energy to go back to her car and dropped her son at school and went to work. However at work she felt increasingly weak and so she called the squad to bring her to the ED. On admission in the ED, suddenly developed dizziness which resolved after she was placed in the Trendelenburg position. She also states that when she went into her house after she went up the stairs, she checked her blood pressure and it was 190 systolic so she took 10 mg of lisinopril. She usually takes 5 mg of lisinopril every evening and last dose was the previous night. In the ED, vitals were significant for blood pressure of 170/79 and respiratory rate of 11 was otherwise normal. CBC was unremarkable and BMP was unremarkable. Initial troponin was negative and EKG showed normal sinus rhythm. Chest x-ray showed no acute abnormality and was stable. She was admitted to be managed for TIA. Lipid panel was within normal limits and A1c was 5. She had a brain MRI which showed an old left basal ganglia infarct extending into the temporal lobe but no acute infarct. MRA of the head and neck showed high-grade stenosis of the origin of the left internal carotid artery without hemodynamically significant stenosis and occluded cervical portion of the left internal carotid artery with reconstitution at the level of the cavernous carotid and no other significant stenosis. Neurology was consulted and based on the review of the imaging, and evaluation of the patient, recommended that aspirin be stopped and patient be switched to Plavix 75 mg daily. Patient remained stable and was discharged home on 11/20/2019 with a prescription for p.o. Plavix 75 mg daily. She is to continue taking high intensity statin and is to follow-up with her primary care doctor, to be given a referral to a neurologist on outpatient basis. Patient seen and examined prior to discharge. She felt well and had no complaints and was ready to go home. Review of symptoms otherwise negative. Labs and vitals reviewed. Home medication reviewed and reconciled. o/e: Vital Signs Height 5 ft Weight: 120 lb 8 oz Weight in Pounds 120.5 lbs Pulse Ox 99 Temperature 97.0 F Pulse Rate 79 Respiratory Rate 14 Blood Pressure 118/70 Blood Pressure Position Sitting General: Alert, Oriented x3, Cooperative, No apparent distress HEENT: Atraumatic, PERRLA, EOMI, Normocephalic Oral: Moist Mucosa Neck: Supple, No JVD, Negative Carotid Bruits Lungs: Clear to auscultation, Normal air movement Cardiovascular: Regular rate, Regular Rhythm, Normal S1, Normal S2, No murmurs Abdomen: Bowel Sounds Present, Soft, Non Tender, Non-Distended, No Hepato- splenomegaly Extremities: No clubbing, No cyanosis, No edema, Capillary Refill Less than 3 Seconds Skin: No rashes, No breakdown Musculoskeletal: No Tenderness to Palpation of Joints or Extremities Lymphatic: No Cervical, Supraclavicular, or Inguinal Adenopathy Neurological: Cranial nerves II-XII grossly intact, - - power in all extremities is 5/5, normal sensation, tone and reflexes in all extremities Psych/Mental Status: Normal Affect, Appropriate, Alert and oriented to time, place, person, mood and affect Plan as above. Of note, atorvastatin was increased from 20 mg daily to 40 mg daily light of the TIA and her having had a previous stroke about a year ago. - Physical Exam Vitals/I&O's: Vital Signs Temp Pulse Resp BP Pulse Ox 97.0 F L 79 14 118/70 99 11/20/19 09:10 11/20/19 09:10 11/20/19 09:10 11/20/19 09:10 11/20/19 09:10 Oxygen Delivery Method Room Air Weight: 120 lb 8 oz Body Mass Index (BMI) 23.5 Finger Stick Blood Glucose 142 Intake and Output for Last 24 Hours 11/18/19 11/19/19 11/20/19 23:59 23:59 23:59 Intake Total 480 / 480 Balance 480 / 480 Laboratory Results 11/19/19 11:30: WBC 6.8, RBC 4.88, Hgb 14.5, Hct 43.6, MCV 89.3, MCH 29.7, MCHC 33.3, RDW Std Deviation 39.2, RDW Coeff of Vinicius 12.0, Plt Count 352, MPV 9.5, Immature Gran % (Auto) 0.300, Neut % (Auto) 68.8, Lymph % (Auto) 21.2, [place] % (Auto) 8.2, Eos % (Auto) 0.9, Baso % (Auto) 0.6, Absolute Neuts (auto) 4.7, Absolute Lymphs (auto) 1.44, Nucleated RBC % 0 11/19/19 11:30: PT 13.8, INR 1.1, APTT 28.8 11/19/19 11:30: Sodium 136, Potassium 3.7, Chloride 106, Carbon Dioxide 26.0, Anion Gap 4 L, BUN 15, Creatinine 0.94, Estim Creat Clear Calc 64.72, Est GFR (MDRD) Af Amer 81, Est GFR (MDRD) Non-Af 67, BUN/Creatinine Ratio 15.9, Glucose 105, Calcium 8.6, Troponin I < 0.015 11/19/19 11:30: Triglycerides 58, Cholesterol 142, LDL Cholesterol 78, VLDL Cholesterol 12, HDL Cholesterol 52 11/19/19 11:30: Hemoglobin A1c 5.0 11/20/19 05:40: WBC 7.4, RBC 4.45, Hgb 12.9, Hct 39.6, MCV 89.0, MCH 29.0, MCHC 32.6, RDW Std Deviation 39.6, RDW Coeff of Vinicius 12.2, Plt Count 321, MPV 9.7, Immature Gran % (Auto) 0.300, Neut % (Auto) 55.2, Lymph % (Auto) 32.2, [place] % (Auto) 10.1 H, Eos % (Auto) 1.5, Baso % (Auto) 0.7, Absolute Neuts (auto) 4.1, Absolute Lymphs (auto) 2.38, Nucleated RBC % 0 11/20/19 05:40: Sodium 138, Potassium 3.5, Chloride 106, Carbon Dioxide 27.0, Anion Gap 5, BUN 13, Creatinine 0.84, Estim Creat Clear Calc 56.91, Est GFR (MDRD) Af Amer 92, Est GFR (MDRD) Non-Af 76, BUN/Creatinine Ratio 15.5, Glucose 78, Calcium 8.1 L, Triglycerides 37, Cholesterol 124, LDL Cholesterol 70, VLDL Cholesterol 7, HDL Cholesterol 47 Current Medications Acetaminophen (Tylenol) 650 mg PO Q6H PRN PRN PRN Reason: Pain Score 1-08/23 Last Admin: 11/20/19 06:12 Dose: 650 mg Documented by: Atorvastatin Calcium (Lipitor) 20 mg PO QHS [facility] Last Admin: 11/19/19 21:06 Dose: 20 mg Documented by: Bupropion HCl (Wellbutrin Xl) 150 mg PO QHS [facility] [place] Last Admin: 11/19/19 21:06 Dose: 150 mg Documented by: Clopidogrel Bisulfate (Plavix) 75 mg PO QHS [facility] Dextrose (D50w Syringe) 0 gm IV X1 PRN; Protocol PRN Reason: Hypoglycemia Enoxaparin Sodium (Lovenox) 40 mg SC DAILY@0600 [facility] Last Admin: 11/20/19 05:21 Dose: 40 mg Documented by: Glucagon () 1 mg IM .X1 PRN PRN Reason: Hypoglycemia Hydroxyzine HCl (Atarax Tablet) 10 mg PO QHS [facility] [place] Last Admin: 11/19/19 21:05 Dose: 10 mg Documented by: Sodium Chloride () 250 mls @ 15 mls/hr IV .[id number] PRN PRN Reason: Saline Flush Sodium Chloride () 250 mls @ 15 mls/hr IV .[id number] PRN PRN Reason: Additional IVPB [facility]fusion [facility] Admin: 11/19/19 21:06 Dose: 5 mg Documented by: Ondansetron HCl (Zofran) 4 mg IV Q8H PRN PRN PRN Reason: NAUSEA/VOMITING Sodium Chloride () 10 - 40 ml IV UD PRN PRN Reason: SALINE FLUSH Discharge Diet: Low fat/ Low Cholesterol Discharge Activity: Return to Normal Activity Weight Bearing Status: Weight bearing as tolerated Call your doctor if you observe: Dizziness, Fainting spells, - - focal weakness Home Medications: Medications to take at Discharge Hydroxyzine HCl 10 mg PO QHS 05/07/19 Lisinopril [Zestril] 5 mg PO QHS 05/07/19 buPROPion XL [Wellbutrin Xl] 150 mg PO QHS 05/07/19 Atorvastatin Calcium 40 mg PO QHS #30 tab 11/20/19 Clopidogrel Bisulfate [Plavix] 75 mg PO DAILY #30 tab 11/20/19 Following Prescrptions Were Given to Patient: Atorvastatin Calcium 40 mg PO QHS #30 tab Transmission Status: Received by [facility] Clopidogrel Bisulfate [Plavix] 75 mg PO DAILY #30 tab Transmission Status: Received by [facility] Primary Care Physician: Perfecto Murray MD [NON-STAFF] - Please follow up with your Primary Care Physician in: one week Please Follow Up With: Bhavin Catherine NP-C When: one week Patient Instructions: What Is a TIA? Disposition: Home Minutes spent on discharge:: 40 Patient Condition:: Stable Medical Necessity - Tobacco Use Smoking Status: Never smoker Tobacco Use: Secondhand Meaningful Use Info Meaningful Use Diagnoses (Choose all that apply): None applicable Code Visit OBSV E&M: 11217 Observation care discharge
--- NOTE | 2019-11-20 11:29 | PHA.DC.MC ---
Pharmacy Service has performed discharge medication reconciliation and counseling for this patient. 1. CLOPIDOGREL 75MG PO DAILY The patient's discharge medication list was reviewed for discrepancies and discrepancies were resolved. Home Medications Hydroxyzine HCl 10 mg PO QHS 05/07/19 Lisinopril [Zestril] 5 mg PO QHS 05/07/19 buPROPion XL [Wellbutrin Xl] 150 mg PO QHS 05/07/19 Atorvastatin Calcium 40 mg PO QHS #30 tab 11/20/19 Clopidogrel Bisulfate [Plavix] 75 mg PO DAILY #30 tab 11/20/19 The patient was counseled on the following discharge medications and changes in medications for homegoing were reviewed. The Reason for Use, instructions for use, and potential side effects were reviewed for all new medications. The patient's questions regarding all of their medications were answered. The patient was able to verbally demonstrate an understanding of their discharge medications. The patient seemed reluctant to increase dose of atorvastatin to 40mg. I highly encouraged her to try the higher dose because she had another event.
== END 2019-11-20 10:53 | disposition home or self-care (01) ==
LOC: ED 12:49 → PCU 13:23
PROVIDERS: Admitting Provider Student in an Organized Health Care Education/Training Program; Emergency Provider Emergency Medicine; Family Provider Nurse Practitioner Family; PCP Nurse Practitioner Family; Referring Provider Student in an Organized Health Care Education/Training Program; Visit Provider Student in an Organized Health Care Education/Training Program
DX: G45.9 Transient cerebral ischemic attack, unspecified (principal); R53.1 Weakness; E78.5 Hyperlipidemia, unspecified; I10 Essential (primary) hypertension; F41.9 Anxiety disorder, unspecified; F32.9 Major depressive disorder, single episode, unspecified; Z79.899 Other long term (current) drug therapy; Z79.82 Long term (current) use of aspirin
CPT/HCPCS: 36415; 70450; 70544; 70549; 70551; 80048; 80061; 83036; 84484; 85025; 85610; 85730; 93005; 96372; 99218; 99285; A9575; A4216; G0378

== ENCOUNTER 2020-04-02 21:08 | Emergency (ER) | payer BC, SELFPAY ==
[2019-11-19 23:03] VITALS: BMI 23.5
[2020-04-02 21:10] VITALS: BP 199/109; PULSE 118; RESP 18; TEMP 36.8; O2SAT 100; BMI 23.4
[2020-04-02 21:44] VITALS: BP 201/112; PULSE 98; RESP 16; O2SAT 96
--- NOTE | 2020-04-02 21:46 | EKG12_ITS ---
Test Reason : CHEST PRESSURE Blood Pressure : / mmHG Vent. Rate : 104 BPM Atrial Rate : 104 BPM P-R Int : 124 ms QRS Dur : 068 ms QT Int : 342 ms P-R-T Axes : 054 059 062 degrees QTc Int : 449 ms Sinus tachycardia Otherwise normal ECG Confirmed by SHANI DAI, REBECCA ([id number]), commissioning editor WALESKA GR ([id number]) on 04/08/2020 2:52:29 PM Referred By: NAZARIO Confirmed By:REBECCA MCLEOD MD
--- NOTE | 2020-04-02 21:57 | ED.VIS.GEN ---
History of Present Illness Chief Complaint: Hypertension Informant: Patient Onset: Today Narrative: Presents for evaluation of elevated blood pressure along with intermittent chest pressure today while at work. Went to work at 8 AM this morning. felt her blood pressure going up therefore checked it was 186/113 she went home. Was feeling intermittent chest pressure into her left shoulder blade. No dyspnea nausea or diaphoresis. No radicular symptoms into the arm. At home blood pressure went up to 218/113, she took extra dose of her lisinopril of 5 mg. She called PCP office for appointment tomorrow. Denies headache or visual changes. Denies nausea or vomiting. States was on 10 mg of lisinopril in the past however would become hypotensive. Her blood pressure fluctuates up and down with no consistent number. History of hypertension, hypercholesterolemia, states multiple TIAs in the past currently on Plavix. Denies cough. Denies recent travel, surgeries, or immobilizations. No history of PE or DVT. Family history both parents with NE at the age of 47. No history of stress test. Prior similar symptoms: Yes Past Medical History - Allergies and Home Meds Allergies/Adverse Reactions: Allergies yellow dye Adverse Reaction (Verified 04/02/20 21:13) Rash Primary Care Physician: Bhavin Catherine, NEHEMIAS-C [Primary Care Provider] - Past Medical History: - - Hypertension, hypercholesterolemia, TIAs, Surgical History: - - x 1. Smoking Status: Never smoker - Family History Maternal Family History: Reports: - - Patient notes a notable maternal family history of several strokes, severe debility, bedbound status as result, coronary disease with history of MIs, hypertension, hyperlipidemia. Paternal Family History: Reports: - - Patient notes a paternal family history of heart disease, coronary disease. Review of Systems General: Denies: Chills, Fever, Sweats Eyes: Denies: Visual changes - bilaterally, Diplopia ENT: Denies: Rhinorrhea, Sore throat Cardiovascular: Reports: Chest pain. Denies: Palpitations Respiratory: Denies: Dyspnea, Cough, Dyspnea on exertion Gastrointestinal: Denies: Abdominal pain, Nausea, Vomiting, Diarrhea, Melena, Hematochezia Genitourinary: Denies: Dysuria, Hematuria, Frequency Musculoskeletal: Denies: Back pain, Extremity Pain Skin: Denies: Rash, Wounds Neurological: Denies: Headache, Weakness, Numbness Physical Exam Vital Signs/Narrative: Vital Signs Temp Pulse Resp BP Pulse Ox 04/02/20 21:44 98 16 201/112 H 96 04/02/20 21:10 98.3 F 118 H 18 199/109 H 100 Inital Vital Signs reviewed: Yes General: Well nourished, Well developed, No Acute Distress Head: Normocephalic, Atraumatic Eyes: Perrl, EOMI ENT: Moist mucous membranes, No rhinorrhea Neck: Supple, Nontender Cardiovascular: Regular rate, Regular rhythm, No murmurs, Tachycardia Respiratory: No distress, CTA bilaterally, Chest nontender Abdomen: Soft, Nontender, Nondistended, Normal bowel sounds Back: Nontender, Normal Inspection Extremities: Nontender, No edema Skin: Normal color, No rash Neurological: Alert, Oriented x3, Cranial nerves II-XII grossly intact, Normal Strength, Normal Sensation Psychological: Normal affect, Normal Mood Diagnostic/Tx/Re-eval Clinical Impression(s) from Imaging Studies Chest X-Ray 04/02/20 22:07 IMPRESSION: No acute cardiopulmonary pathology Electronically Signed: Sloan Faria MD at 22:20 EDT , Service support , Abnormal Lab Results 04/02/20 04/02/20 21:42 21:42 WBC 9.2 RBC 4.50 Hgb 13.4 Hct 41.4 MCV 92.0 MCH 29.8 MCHC 32.4 RDW Std Deviation 41.1 RDW Coeff of Vinicius 12.2 Plt Count 329 MPV 9.7 Immature Gran % (Auto) 0.200 Neut % (Auto) 66.0 Lymph % (Auto) 22.0 [place] % (Auto) 11.0 H Eos % (Auto) 0.4 Baso % (Auto) 0.4 Absolute Neuts (auto) 6.1 Absolute Lymphs (auto) 2.02 Nucleated RBC % 0 Sodium 138 Potassium 3.3 L Chloride 105 Carbon Dioxide 27.0 Anion Gap 6 BUN 18 Creatinine 0.81 Estim Creat Clear Calc 59.02 Est GFR (MDRD) Af Amer 96 Est GFR (MDRD) Non-Af 79 BUN/Creatinine Ratio 22.3 H Glucose 122 H Calcium 9.1 Troponin I < 0.015 - EKG Initial EKG Interpretation: Sinus Rhythm - Sinus rate of 104, no ST or T wave changes. - Medical Decision Making Patient currently symptom-free EKG sinus tachycardia with no acute changes. She denies any dyspnea for any concerns of PE. She has no risk factors for this. Blood pressure was elevated, denies any headache. Given additional aspirin, monitored blood pressure down to 186/100. Cardiac work-up was negative. Potassium 3.3, she was given oral replacement. Patient's heart score is a 3, discussed with patient option with family history significant MIs in both parents can bring in the hospital further testing however she states she would like to see her doctor. She has an appointment tomorrow morning. They will discuss her blood pressure tomorrow and adjustments as needed and likely outpatient stress test. Strict signs and symptoms discussed return. All questions were answered. ED Disposition - Plan for ED Patient: Disposition: Home or Assisted Living Diagnosis: Acute chest pain, Hypokalemia Instructions: ED Chest Pain Atypical Unkn Cause, ED Hypertension Established Referrals: Bhavin Catherine NP-C [Primary Care Provider] - Keep Yared appointment Additional Instructions: Troponin negative. Potassium 3.3. Chest x-ray negative. Follow-up with your doctor this tomorrow and discuss likely outpatient testing and blood pressure treatment. Return if any worsening symptoms.
[2020-04-02 21:59] LABS: Absolute Lymphocyte Count 2.02 X10^3/uL (0.83-4.51); Absolute Neutrophil Count 6.1 X10^3/uL (2.0-7.7); Basophil# 0.04 X10^3/uL; Basophil% 0.4 % (0-1); Eosinophil# 0.04 X10^3/uL; Eosinophils% 0.4 % (0-5); Hematocrit 41.4 % (37-47); Hemoglobin 13.4 g/dL (12.0-15.0); Lymphocyte # 2.02 X10^3/ul (4.0); Mean Corp Hgb Conc 32.4 g/dL (32-36); Mean Corpuscular Hgb 29.8 pg (27.0-32.0); Mean Platelet Vol. 9.7 fl (6.2-12.0); Monocyte# 1.01 X10^3/uL; NRBC Flagged by Analyzer 0 % (0-5); Neutrophil # 6.05 X10^3/uL (2.7-7.7); Platelet Count 329 K/mm3 (150-450); RBC Distribution Width CV 12.2 % (11.6-14.6); RBC Distribution Width SD 41.1 fl (35.1-43.9); White Blood Count 9.2 K/mm3 (4.4-11.0)
[2020-04-02 22:04] VITALS: O2SAT 96
--- NOTE | 2020-04-02 22:07 | RAD_ITS ---
STUDY: X-RAY CHEST REASON FOR EXAM: Female, 49 years old. HIGH BLOOD PRESSURE TECHNIQUE: AP portable COMPARISON: May 07, 2019. FINDINGS: The lungs are clear and expanded. There is no demonstrated pleural abnormality. Normal size heart. Normal mediastinum and cyndi. Normal visualized pulmonary arteries. Normal visualized aortic arch and descending thoracic aorta. Minor dextroscoliosis of the thoracolumbar spine Normal visualized ribs, clavicles, and shoulders. There is no demonstrated abnormality of the visualized soft tissue structures of the upper abdomen. No significant change since prior exam RAD/Chest 1 View (Portable) IMPRESSION: No acute cardiopulmonary pathology Electronically Signed: Sloan Faria MD at 22:20 EDT , Service support ,
[2020-04-02 22:16] LABS: Anion Gap 6 (5-15); BUN 18 mg/dL (7-18); BUN/Creat Ratio 22.3 RATIO (10-20); Calcium,Total 9.1 mg/dL (8.5-10.1); Chloride 105 mmol/L (98-107); Creatinine, Serum 0.81 mg/dL (0.55-1.02); EST Glomerular Filtration Rate 79 mL/min (>60); Est Glom Filt Rate - Afr Amer 96 mL/min (>60); Estimated Creatinine Clearance 59.02 ml/min; Glucose 122 mg/dL (74-106); Potassium 3.3 mmol/L (3.5-5.1); Sodium Level 138 mmol/L (136-145)
[2020-04-02] MEDS: Aspirin 81 MG TAB.CHEW 324 MG PO (22:18)
[2020-04-02 23:05] VITALS: BP 147/93; PULSE 90; RESP 16; O2SAT 96
== END 2020-04-02 23:13 | disposition home or self-care (01) ==
PROVIDERS: Emergency Provider Emergency Medicine; PCP Nurse Practitioner Family
DX: R07.89 Other chest pain (principal); E87.6 Hypokalemia; I10 Essential (primary) hypertension; Z86.73 Personal history of transient ischemic attack (TIA), and cerebral infarction without residual deficits
CPT/HCPCS: 71045; 80048; 84484; 85025; 93005; 99285; A4216

== ENCOUNTER → 2022-07-21 | Outpatient (CLI) | payer BC, SELFPAY ==
--- NOTE | 2022-07-21 12:59 | BI_ITS ---
MAMMOGRAPHY - BILATERAL SCREENING REASON FOR EXAM: Female, 51 years old. Routine annual screening examination. PERTINENT HISTORY: Aunt with breast cancer. TECHNIQUE: Digital bilateral breast sheila (3D mammographic acquisition) in the CC and MLO projections. 2-D mediolateral oblique (MLO) and craniocaudad (CC) views of both breasts were obtained. CAD: Full Field Digital Mammography with Computer Added Detection was performed. COMPARISON: Comparison is made with prior study dated 10/20/2019. FINDINGS: Breast Composition: The breasts are heterogeneously dense, which may obscure small masses. There are no dominant masses or suspicious calcifications. Stable small benign-appearing bilateral axillary lymph nodes. No other significant abnormalities are identified. There has been no significant change since the prior study. BI/SCRN MAMM (CAD)W/SHEILA BILAT IMPRESSION: Stable bilateral screening mammogram. Yearly follow-up mammogram recommended. (A) ASSESSMENT CATEGORY: BIRADS Category 2: Benign. A letter regarding these results will be sent to the patient by the facility within 30 days. Approximately 10% of breast cancers are not detected by mammography. A normal mammogram should not delay biopsy of a clinically suspicious abnormality. [id number] Electronically Signed: Damion Mendoza MD at 14:16 EDT ,
== END | disposition home or self-care (01) ==
LOC: OPBI 12:57
PROVIDERS: PCP Nurse Practitioner Family; Visit Provider Nurse Practitioner Family
DX: Z12.31 Encounter for screening mammogram for malignant neoplasm of breast (principal)
CPT/HCPCS: 77063; 77067

== ENCOUNTER 2022-10-29 18:51 | Emergency (ER) | payer BC, SELFPAY ==
[2022-10-29 18:52] VITALS: BP 126/80; PULSE 98; RESP 16; TEMP 37.3; O2SAT 99; BMI 51.7
--- NOTE | 2022-10-29 19:29 | EX.ED.DYSGE1 ---
HPI History of Present Illness Chief Complaint: Dizziness Informant: patient Narrative Narrative: Presents by EMS from home increasing nausea and dry heaving. COVID diagnosis 9 days ago symptomatic 13 days ago. Nonvaccinated for COVID this is her first diagnosed infection. Was doing well went back to work this week. Today started nausea and dry heaving. Occasional cough is residual. Status post Zofran by EMS with no improvement. Fluids were started. History of TIA, hypertension and hyperlipidemia. States COVID symptoms were improving. [facility] Medical History Stroke Home Medications bupropion HCl 150 mg 24 hr tablet, extended release 150 mg PO QHS anxiety 05/07/19 [History Last Taken 11/18/19] hydroxyzine HCl 10 mg tablet 10 mg PO QHS anxiety 05/07/19 [History Last Taken 11/18/19] lisinopril 5 mg tablet 5 mg PO QHS bp 05/07/19 [History Last Taken 11/18/19] atorvastatin 40 mg tablet 40 mg PO QHS #30 tabs 11/20/19 [Rx Last Taken Unknown] clopidogrel 75 mg tablet 75 mg PO DAILY #30 tabs 11/20/19 [Rx Last Taken Unknown] ondansetron 4 mg disintegrating tablet 4 mg PO Q6H PRN nausea and vomiting #10 tabs 10/29/22 [Rx Last Taken Unknown] promethazine 25 mg tablet 25 mg PO Q6H PRN nausea or vomiting #12 tabs 10/29/22 [Rx Last Taken Unknown] Allergy/AdvReac Type Severity Reaction Status Date / Time yellow dye AdvReac Rash Verified 04/02/20 21:13 Social History Smoking Status: Never smoker ROS ROS ED Constitutional Constitutional ED: Denies chills, fever(s) or sweats Eyes Eyes: Denies change in vision ENT ENT ED: Denies dysphagia or sore throat Cardiovascular Cardiovascular: Denies chest pain, leg edema, palpitations or racing heartbeat Respiratory/Chest Respiratory/Chest: Denies cough, dyspnea or dyspnea on exertion Gastrointestinal Gastrointestinal: Reports nausea; Denies abdominal pain, diarrhea or vomiting Genitourinary Genitourinary ED: Denies dysuria, hematuria or urinary frequency Musculoskeletal Musculoskeletal: Denies back pain, extremity pain or neck pain Integumentary Denies rash or wounds Neurologic Neurologic: Denies headache(s), paresthesias or weakness EXAM Physical Exam Const Vital Signs: 10/29/22 18:52 10/29/22 18:57 10/29/22 22:11 Temperature 99.1 F Temperature Source Oral Pulse Rate 98 95 Respiratory Rate 16 22 H Respiratory Effort Normal Respiratory Pattern Normal Blood Pressure 126/80 H 111/78 Blood Pressure Mean 95 Pulse Ox 99 99 Oxygen Delivery Method Room Air Positive well nourished and well developed Constitutional Narrative: Anxious, nontoxic General Appearance ED: well developed and NAD HEENT HEENT Narrative: Mild dry mucosal membranes normocephalic and atraumatic Eyes PERRL, EOMs intact bilaterally and conjunctivae normal General Eye ED: Yes normal appearance of both eyes Neck no lymphadenopathy and supple General: Negative for tenderness Chest Wall Chest: Negative for tenderness Resp normal respiratory effort and normal air movement Effort and Inspection: symmetric chest movement; Negative for respiratory distress Cardio regular rate, regular rhythm and no murmurs Peripheral Pulses: pulses 2+ throughout GI normal to inspection, nondistended, normoactive bowel sounds and non-tender Palpation: Negative for guarding or rebound tenderness present Back/Spine no CVA tenderness and no thoracic nor lumbar tenderness Extremity normal to inspection General Extremety ED: Negative for edema or tenderness General Extremity: Negative for edema Neuro oriented x3 and no sensory deficits noted Sensorium / Orientation: awake and alert Skin no rashes or lesions noted and no wounds MDM MDM MDM Narrative Medical decision making narrative: If vital signs stable no improvement with Zofran from EMS. IV fluids continue we will check labs we will give Reglan Benadryl for symptomatic treatment. Will reevaluate. Clinically improving on reevaluation. Tolerate oral fluids. Meds to beds with Zofran and Phenergan written. Labs are all stable. Return precautions. All questions were answered. Lab Data Labs: Laboratory Results - last 24 hr 10/29/22 10/29/22 19:42 19:42 WBC 7.0 RBC 4.07 L Hgb 11.9 L Hct 35.4 L MCV 87.0 MCH 29.2 MCHC 33.6 RDW Std Deviation 39.8 RDW Coeff of Vinicius 12.5 Plt Count 306 MPV 9.6 Immature Gran % (Auto) 0.400 Neut % (Auto) 83.0 H Lymph % (Auto) 4.7 L Castro % (Auto) 11.4 H Eos % (Auto) 0.1 Baso % (Auto) 0.4 Absolute Neuts (auto) 5.8 Absolute Lymphs (auto) 0.33 L Nucleated RBC % 0 Differential Comment SCANNED Sodium 140 Potassium 3.5 Chloride 111 H Carbon Dioxide 22.0 Anion Gap 7 BUN 13 Creatinine 0.67 Estim Creat Clear Calc 68.95 Est GFR (MDRD) Af Amer 118 Est GFR (MDRD) Non-Af 98 BUN/Creatinine Ratio 19.5 Glucose 85 Calcium 8.3 L EKG Initial EKG: Attestation: I personally reviewed and interpreted this EKG as follows: Comments: Sinus rate of 96, no ST or T wave changes QTC 459. Discharge Plan Triage Chief Complaint: Dizziness ED Provider: Hunter Eastman Dx/Rx/DC Orders Clinical Impression: Vomiting, HTN (hypertension), HLD (hyperlipidemia) Instructions: ED Diet Vomiting Diarrhea Prescriptions: New promethazine 25 mg tablet 25 mg PO Q6H PRN (Reason: nausea or vomiting) Qty: 12 0RF ondansetron 4 mg tablet,disintegrating 4 mg PO Q6H PRN (Reason: nausea and vomiting) Qty: 10 0RF No Action lisinopril 5 MG tablet 5 mg PO QHS bupropion HCl 150 MG tablet extended release 24 hr 150 mg PO QHS hydroxyzine HCl 10 tablet 10 mg PO QHS clopidogrel 75 MG tablet 75 mg PO DAILY Qty: 30 1RF atorvastatin 40 MG tablet 40 mg PO QHS Qty: 30 1RF Primary Care Provider: Bhavin Catherine [employer] Referrals: Bhavin Catherine [employer], [employer] [Primary Care Provider] - 3-5 Days if not improving Activity Restrictions/Additional Instructions: Lab work stable. Continue oral fluids. Take medications as needed. Return if any worsening symptoms. Disposition Disposition: Home, Self Care Discharge Date/Time: 10/29/22 22:40
--- NOTE | 2022-10-29 19:33 | EKG12_ITS ---
Test Reason : DYSRHYTHMIA Blood Pressure : / mmHG Vent. Rate : 096 BPM Atrial Rate : 096 BPM P-R Int : 144 ms QRS Dur : 064 ms QT Int : 364 ms P-R-T Axes : 070 062 067 degrees QTc Int : 459 ms Normal sinus rhythm Septal infarct , age undetermined Abnormal ECG Confirmed by SHANI DAI, REBECCA ([id number]), society editor DEJA TAO ([id number]) on 11/01/2022 1:00:49 PM Referred By: LUX Confirmed By:REBECCA MCLEOD MD
[2022-10-29] MEDS: Metoclopramide 10 MG/2 ML Vial IV (19:39)
[2022-10-29] MEDS: 0.9% Normal Saline 1,000 ML 1000 ML IV (19:39)
[2022-10-29] MEDS: DiphenhydrAMINE 50 MG/ML Syringe 25 MG IV (19:41)
[2022-10-29 19:47] LABS: Absolute Lymphocyte Count 0.33 X10^3/uL (0.83-4.51); Absolute Neutrophil Count 5.8 X10^3/uL (2.0-7.7); Basophil# 0.03 X10^3/uL; Basophil% 0.4 % (0-1); Eosinophil# 0.01 X10^3/uL; Eosinophils% 0.1 % (0-5); Hematocrit 35.4 % (37-47); Hemoglobin 11.9 g/dL (12.0-15.0); Lymphocyte # 0.33 X10^3/ul (0.83-4.51); Lymphocyte % 4.7 % (19-41); Mean Corp Hgb Conc 33.6 g/dL (32-36); Mean Corpuscular Hgb 29.2 pg (27.0-32.0); Mean Platelet Vol. 9.6 fl (6.2-12.0); Monocyte% 11.4 % (0-10); NRBC Flagged by Analyzer 0 % (0-5); Neutrophil # 5.83 X10^3/uL (2.7-7.7); POSITIVE DIFFERENTIAL YES; Platelet Count 306 K/mm3 (150-450); RBC Distribution Width CV 12.5 % (11.6-14.6); RBC Distribution Width SD 39.8 fl (35.1-43.9); Red Blood Count 4.07 M/mm3 (4.2-5.4)
[2022-10-29 19:49] LABS: Differential Indicated SCAN CRITERIA MET
[2022-10-29 20:02] LABS: Anion Gap 7 (5-15); BUN 13 mg/dL (7-18); BUN/Creat Ratio 19.5 RATIO (10-20); Calcium,Total 8.3 mg/dL (8.5-10.1); Chloride 111 mmol/L (98-107); Creatinine, Serum 0.67 mg/dL (0.55-1.02); EST Glomerular Filtration Rate 98 mL/min (>60); Est Glom Filt Rate - Afr Amer 118 mL/min (>60); Estimated Creatinine Clearance 68.95 ml/min; Glucose 85 mg/dL (74-106); Potassium 3.5 mmol/L (3.5-5.1); Sodium Level 140 mmol/L (136-145)
[2022-10-29 20:39] LABS: Differential Comment SCANNED
[2022-10-29 22:11] VITALS: BP 111/78; PULSE 95; RESP 22; O2SAT 99
== END 2022-10-29 22:40 | disposition home or self-care (01) ==
PROVIDERS: Emergency Provider Emergency Medicine; PCP Nurse Practitioner Family; Visit Provider Emergency Medicine
DX: R11.2 Nausea with vomiting, unspecified (principal); I10 Essential (primary) hypertension; E78.5 Hyperlipidemia, unspecified; Z28.310 Unvaccinated for COVID-19; Z79.02 Long term (current) use of antithrombotics/antiplatelets; Z79.899 Other long term (current) drug therapy; Z86.73 Personal history of transient ischemic attack (TIA), and cerebral infarction without residual deficits
CPT/HCPCS: 80048; 85025; 93005; 96361; 96374; 96375; 99285; A4216

== ENCOUNTER 2022-10-31 14:14 | Emergency (ER) | payer BC, SELFPAY ==
[2022-10-31 14:15] VITALS: TEMP 37.5; BMI 24.4
[2022-10-31 14:17] VITALS: BP 106/67; PULSE 79; RESP 18; O2SAT 97
--- NOTE | 2022-10-31 14:29 | EDS_ITS ---
HPI History of Present Illness Chief Complaint: Hypotension Narrative Narrative: 52-year-old female past medical history of hypertension presents with low blood pressure at home. She relates history that she was diagnosed with COVID almost 2 weeks ago. She was improving, but started experiencing nausea and vomiting on Tuesday, 2 days ago. She was seen in the emergency department and was given a medication to control her nausea. She has not had vomiting since then. She states that whenever she stands she becomes lightheaded and dizzy, and feels like she is going to pass out. She gets blurry vision. They took her blood pressure at home and it was only in the 60s. She continues to take lisinopril 10 mg because she states that her blood pressure has been fluctuating. She presents via EMS mainly because of the reported low blood pressure. Her fever has essentially resolved. [facility] Medical History Stroke Home Medications bupropion HCl 150 mg 24 hr tablet, extended release 150 mg PO QHS anxiety 05/07/19 [History Last Taken 11/18/19] hydroxyzine HCl 10 mg tablet 10 mg PO QHS anxiety 05/07/19 [History Last Taken 11/18/19] lisinopril 5 mg tablet 5 mg PO QHS bp 05/07/19 [History Last Taken 11/18/19] atorvastatin 40 mg tablet 40 mg PO QHS #30 tabs 11/20/19 [Rx Last Taken Unknown] clopidogrel 75 mg tablet 75 mg PO DAILY #30 tabs 11/20/19 [Rx Last Taken Unknown] ondansetron 4 mg disintegrating tablet 4 mg PO Q6H PRN nausea and vomiting #10 tabs 10/29/22 [Rx Last Taken Unknown] promethazine 25 mg tablet 25 mg PO Q6H PRN nausea or vomiting #12 tabs 10/29/22 [Rx Last Taken Unknown] Allergy/AdvReac Type Severity Reaction Status Date / Time yellow dye AdvReac Rash Verified 10/31/22 14:18 Social History Smoking Status: Never smoker ROS ROS ED ROS Narrative Constitutional: No fever, no chills. Low blood pressure. HEENT: No sore throat. No neck pain. No loss of vision. No rhinorrhea. Cardiovascular: No chest pain. No palpitations. No pedal edema. Respiratory: No cough, no shortness of breath. Abdominal: No abdominal pain. No nausea. No vomiting. Nausea and vomiting controlled with antiemetic given 2 days ago. Genitourinary: No dysuria. No hematuria. Musculoskeletal: No myalgias. No arthralgias. Neurologic: No headaches. Positive dizziness. Positive lightheadedness and near syncope worse with standing. Skin: No rash. No change in color. Psychiatric: No depression. No anxiety. EXAM Physical Exam Narrative Exam Narrative: Afebrile. Vital signs noted. HEENT: Normocephalic. Atraumatic. PERRL, EOMI. Neck soft and supple. No point tenderness or step off. Cardiovascular: Regular rate and rhythm. No murmurs, rubs, or gallops appreciated. Respiratory: No tachypnea. Lungs clear to auscultation bilaterally. Gastrointestinal: Abdomen soft, nontender, with normoactive bowel sounds. No rebound or guarding. Neurological: Awake. Alert. Nonfocal, nonlateralizing. Skin: No rash. Normal color. No pallor. Musculoskeletal: No pedal edema. Full range of motion extremities. Const Vital Signs: 10/31/22 14:15 10/31/22 14:17 10/31/22 15:44 Temperature 99.5 F H Temperature Source Oral Pulse Rate 79 Pulse Rate [Lying] 88 Pulse Rate [Sitting (for 1 minute prior to obtaining)] 91 Pulse Rate [Standing (for 1 minute prior to obtaining)] 90 Respiratory Rate 18 Blood Pressure 106/67 Blood Pressure [Lying] 109/86 H Blood Pressure [Sitting (for 1 minute prior to obtaining)] 117/76 Blood Pressure [Standing (for 1 minute prior to obtaining)] 91/62 Blood Pressure Mean 80 Blood Pressure Mean [Lying] 93 Blood Pressure Mean [Sitting (for 1 minute prior to obtaining)] 89 Blood Pressure Mean [Standing (for 1 minute prior to obtaining)] 71 Pulse Ox 97 Oxygen Delivery Method Room Air MDM MDM MDM Narrative Medical decision making narrative: Current blood pressure is 106/67. I will check her basic laboratory work including CBC and CMP. I do feel that she may have intravascular volume depletion which is exacerbated by her taking her antihypertensive medication. She will be bolused normal saline 1 L intravenously. CBC shows neutropenia consistent with COVID with a white blood cell count of 3.4, hemoglobin normal at 12.4, hematocrit 37.7. Platelet count normal at 228. Electrolyte panel shows hypokalemia with a potassium of 3.2 which was replaced orally with 40 mill equivalents. Chloride slightly high at 108. Glucose appropriately elevated at 135 with a normal anion gap of 7. AST and ALT are elevated at 58 which I think are nonspecific. Orthostatics are essentially negative as her blood pressure was elevated above 100 and she did not become tachycardic. She will be bolused another liter of normal saline. At this point in time, I feel she can be discharged safely home with follow-up. I feel she has more of an intravascular volume depletion. She was told not to take her antihypertensive medications and last her systolic blood pressure is above 120. Return instructions to the emergency department were reviewed. Disposition is discharged home in stable condition. Lab Data Attestation: I reviewed the patient's lab results. Labs: Laboratory Results - last 24 hr 10/31/22 10/31/22 14:40 14:40 WBC 3.4 L RBC 4.19 L Hgb 12.4 Hct 37.7 MCV 90.0 MCH 29.6 MCHC 32.9 RDW Std Deviation 42.7 RDW Coeff of Vinicius 12.8 Plt Count 228 MPV 9.9 Immature Gran % (Auto) 0.300 Neut % (Auto) 46.9 L Lymph % (Auto) 37.8 [place] % (Auto) 14.7 H Eos % (Auto) 0.0 Baso % (Auto) 0.3 Absolute Neuts (auto) 1.6 L Absolute Lymphs (auto) 1.29 Nucleated RBC % 0 Sodium 139 Potassium 3.2 L Chloride 108 H Carbon Dioxide 24.0 Anion Gap 7 BUN 14 Creatinine 0.76 Estim Creat Clear Calc 60.78 Est GFR (MDRD) Af Amer 102 Est GFR (MDRD) Non-Af 84 BUN/Creatinine Ratio 18.4 Glucose 135 H Calcium 7.5 L Total Bilirubin 0.20 AST 58 H ALT 58 H Alkaline Phosphatase 56 Total Protein 5.7 L Albumin 2.6 L Globulin 3.1 Albumin/Globulin Ratio 0.8 L Discharge Plan Triage Chief Complaint: Hypotension ED Provider: Chaparro Baig Dx/Rx/DC Orders Clinical Impression: Hypotension, Intravascular volume depletion, Hypokalemia, COVID Instructions: Coronavirus Disease 2019 (COVID-19): Caring for Yourself or Others, ED Low Blood Pressure, All Causes, ED Hypokalemia Prescriptions: No Action lisinopril 5 MG tablet 5 mg PO QHS bupropion HCl 150 MG tablet extended release 24 hr 150 mg PO QHS hydroxyzine HCl 10 tablet 10 mg PO QHS clopidogrel 75 MG tablet 75 mg PO DAILY Qty: 30 1RF atorvastatin 40 MG tablet 40 mg PO QHS Qty: 30 1RF promethazine 25 mg tablet 25 mg PO Q6H PRN (Reason: nausea or vomiting) Qty: 12 0RF ondansetron 4 mg tablet,disintegrating 4 mg PO Q6H PRN (Reason: nausea and vomiting) Qty: 10 0RF Primary Care Provider: Bhavin Catherine NP Referrals: Bhavin Catherine NP, [employer] [Primary Care Provider] - Activity Restrictions/Additional Instructions: Refrain from taking your antihypertensive medication/lisinopril if your systolic blood pressure is below 120. Disposition Disposition: Home, Self Care
[2022-10-31] MEDS: 0.9% Normal Saline 1,000 ML 1000 ML IV (14:40)
[2022-10-31 14:48] LABS: Absolute Lymphocyte Count 1.29 X10^3/uL (0.83-4.51); Absolute Neutrophil Count 1.6 X10^3/uL (2.0-7.7); Basophil# 0.01 X10^3/uL; Basophil% 0.3 % (0-1); Hematocrit 37.7 % (37-47); Hemoglobin 12.4 g/dL (12.0-15.0); Lymphocyte # 1.29 X10^3/ul (0.83-4.51); Lymphocyte % 37.8 % (19-41); Mean Corp Hgb Conc 32.9 g/dL (32-36); Mean Corpuscular Hgb 29.6 pg (27.0-32.0); Mean Platelet Vol. 9.9 fl (6.2-12.0); Monocyte% 14.7 % (0-10); NRBC Flagged by Analyzer 0 % (0-5); Neutrophil % 46.9 % (47-70); Platelet Count 228 K/mm3 (150-450); RBC Distribution Width CV 12.8 % (11.6-14.6); RBC Distribution Width SD 42.7 fl (35.1-43.9); Red Blood Count 4.19 M/mm3 (4.2-5.4); White Blood Count 3.4 K/mm3 (4.4-11.0)
[2022-10-31 15:33] LABS: ALB/GLOB Ratio 0.8 RATIO (0.9-2.4); AST(SGOT) 58 U/L (15-37); Alanine Aminotransfer ALT/SGPT 58 U/L (13-56); Albumin, Serum 2.6 g/dL (3.2-5.0); Alkaline Phosphatase 56 U/L (45-117); Anion Gap 7 (5-15); BUN 14 mg/dL (7-18); BUN/Creat Ratio 18.4 RATIO (10-20); Calcium,Total 7.5 mg/dL (8.5-10.1); Chloride 108 mmol/L (98-107); Creatinine, Serum 0.76 mg/dL (0.55-1.02); EST Glomerular Filtration Rate 84 mL/min (>60); Est Glom Filt Rate - Afr Amer 102 mL/min (>60); Estimated Creatinine Clearance 60.78 ml/min; Globulin 3.1 g/dL (2.2-4.2); Glucose 135 mg/dL (74-106); Potassium 3.2 mmol/L (3.5-5.1); Protein, Total 5.7 g/dL (6.4-8.2); Sodium Level 139 mmol/L (136-145)
[2022-10-31 15:44] VITALS: BP 109/86; BP 117/76; BP 91/62; PULSE 88; PULSE 90; PULSE 91
[2022-10-31] MEDS: Potassium Chloride Oral Tablet 20 MEQ 40 MEQ PO (16:07)
[2022-10-31] MEDS: 0.9% Normal Saline 1,000 ML 999 ML IV (16:08)
[2022-10-31 17:19] VITALS: PULSE 88; RESP 17; O2SAT 98
== END 2022-10-31 17:20 | disposition home or self-care (01) ==
PROVIDERS: Emergency Provider Emergency Medicine; PCP Nurse Practitioner Family; Visit Provider Emergency Medicine
DX: I95.9 Hypotension, unspecified (principal); D70.9 Neutropenia, unspecified; E86.9 Volume depletion, unspecified; U07.1 COVID-19; I10 Essential (primary) hypertension; H53.8 Other visual disturbances; E87.6 Hypokalemia; Z79.899 Other long term (current) drug therapy; Z86.73 Personal history of transient ischemic attack (TIA), and cerebral infarction without residual deficits; Z79.02 Long term (current) use of antithrombotics/antiplatelets
CPT/HCPCS: 80053; 85025; 96360; 96361; 99285; J7030

== ENCOUNTER → 2022-12-17 | Outpatient (CLI) | payer BC, SELFPAY ==
--- NOTE | 2022-12-17 11:09 | CDU_ITS ---
Reason For Study: TIA Rt. Velocities/BP Lt. Velocities/BP Prox CCA 78.4/23.4 cm/sec. Prox CCA 57.5/11.3 cm/sec. Mid CCA 78.4/35.5 cm/sec. Mid CCA 53.2/10.7 cm/sec. Dist CCA 58.6/28.9 cm/sec. Dist CCA 33.3/11.6 cm/sec. Prox ICA 71.8/37.7 cm/sec. Prox ICA 23.8/10.7 cm/sec. Mid ICA 101.4/43.2 cm/sec. Mid ICA 6.1/2.9 cm/sec. Dist ICA 97.1/43.2 cm/sec. Distal ICA, No flow. Rt. ICA/CCA = 1.29. Lt. ICA/CCA = 0.4. Prox ECA 86.1/23.4 cm/sec. Prox ECA 89.4/26.7 cm/sec. Rt. Vert. 41/20.1 cm/sec. Lt. Vert. 55.2/22.9 cm/sec. Right Extracranial There is homogeneous, smooth atherosclerotic plaque noted in the right common carotid artery. There is homogeneous, smooth atherosclerotic plaque noted in the right internal carotid artery. There is intimal thickening but no significant atherosclerotic plaque noted in the right external carotid artery. Left Extracranial There is homogeneous, smooth atherosclerotic plaque noted in the left common carotid artery. There is heterogeneous, irregular atherosclerotic plaque noted in the left internal carotid artery. Known Distal ICA occlusion. There is intimal thickening but no significant atherosclerotic plaque noted in the left external carotid artery. Antegrade flow is noted in the left vertebral artery. Procedure Carotid Duplex [id number]. This is a Carotid Duplex examination using B-mode, color flow and specral Doppler. Exam performed in department. VL/Carotid Duplex Ultrasound Interpretation Summary Smooth plaque of the proximal right internal carotid artery with less than 50% stenosis Irregular plaque within the left internal carotid artery with no flow noted dis tally. Less than 50% stenosis left external carotid artery Patent antegrade vertebral arteries bilaterally By report this is a previously known finding. I do not have available a compari son carotid duplex exam. Ordering Physician: Bhavin Catherine Referring Physician: Bhavin Catherine Performed By: Ingrid Le RVT
== END | disposition home or self-care (01) ==
PROVIDERS: PCP Nurse Practitioner Family; Visit Provider Nurse Practitioner Family
DX: G45.9 Transient cerebral ischemic attack, unspecified (principal)
CPT/HCPCS: 93880

== ENCOUNTER → 2024-01-19 | Outpatient (CLI) | payer BC, SELFPAY ==
--- NOTE | 2024-01-19 12:56 | BI_ITS ---
MAMMOGRAPHY - BILATERAL SCREENING 3-D TOMOSYNTHESIS REASON FOR EXAM: Female, 53 years old. SCREENING PERTINENT HISTORY: No significant family history. TECHNIQUE: 2-D mammograms and 3-D Tomosynthesis of the breast (s) were performed. CAD was performed. COMPARISON: 07/21/2022 FINDINGS: The breast composition is heterogeneously dense that can obscure small breast masses. Scattered benign calcifications are seen. No dense spiculated masses or suspicious microcalcifications are identified. No architectural distortion is identified. There is no skin thickening or retraction. There has been no significant change since the prior study. BI/SCRN MAMM (CAD)W/SHEILA BILAT IMPRESSION: No mammographic signs of malignancy. Routine yearly mammograms recommended. ASSESSMENT CATEGORY: BIRADS Category 1: Negative. A letter regarding these results will be sent to the patient by the facility within 30 days. FOLLOW UP RECOMMENDATION: Yearly follow up mammogram recommended. (A) Approximately 10% of breast cancers are not detected by mammography. A normal mammogram should not delay biopsy of a clinically suspicious abnormality. Electronically Signed: Abhilash Brito MD at 15:57 EST ,
--- OUTSIDE RECORDS SUMMARY | 2024-01-19 14:31 | XMS RPT_ITS | CCD ---
Author Name Unknown Address [address] [place] [address] Organization [facility] Care Team Providers [employer] Director Name Role Phone Landon Dumont Unavailable Unavailable Landon Dumont Unavailable Unavailable Perfecto Murray Unavailable Unavailable Bhavin Catherine Unavailable Jacy Mcconnell Unavailable Unavailable CUAUHTEMOC PAUL APRN Primary Care Unavailable CUAUHTEMOC PAUL APRN Attending Unavailable CUAUHTEMOC PAUL APRN Admitting Unavailable CUAUHTEMOC PAUL APRN Primary Care Unavailable CUAUHTEMOC PAUL APRN Attending Unavailable CUAUHTEMOC PAUL APRN Admitting Unavailable CUAUHTEMOC PAUL APRN Primary Care Unavailable CUAUHTEMOC PAUL APRN Attending Unavailable CUAUHTEMOC PAUL APRN Admitting Unavailable Allergies Allergy Classification Reported Allergen(s) Allergy Type Date of Onset Reaction(s) Facility (1 source) YELLOW NUMBER 10; Translations: [YELLOW NUMBER 10] Propensity to adverse reactions to drug (disorder) [facility] Repository Medications Current Medications Medication Drug Class(es) Dates Sig (Normalized) Sig (Original) atorvastatin 40 mg oral tablet (1 source) HMG-CoA Reductase Inhibitor take 1 tablet by mouth once daily atorvastatin 40 mg oral tablet ; 1 tab(s) orally once a day Quantity: 0 Refills: 0 Ordered: 01-Aug-2021 Annmarie Morales Generic Substitution Allowed benzonatate 100 mg oral capsule (1 source) Non-narcotic Antitussive Start: 08-01-2021 End: 08-10-2021 take 2 capsules by mouth every eight hours as needed benzonatate 100 mg oral capsule ; 1-2 cap(s) orally every 8 hours, As Needed for cough Quantity: 60 Refills: 0 Ordered: 01-Aug-2021 Jacy Mcconnell Start: 01-Aug-2021 End: 10-Aug-2021 Generic Substitution Allowed Comments: May cause drowsiness. Alcohol may intensify this effect. Use care when operating dangerous machinery.Swallow whole. Do not crush. Problems Problem Classification Problem Date Documented Da te Episodic/Chronic Disorders of lipid metabolism (1 source) Hyperlipidemia, unspecified; Translations: [Hyperlipidemia, unspecified] Onset: 12-23-2023 Chronic Essential hypertension (1 source) Essential (primary) hypertension; Translations: [Essential (primary) hypertension] Onset: 12-23-2023 Chronic Genitourinary symptoms and ill-defined conditions (1 source) Dysuria; Translations: [Dysuria] Onset: 01-10-2024 Episodic Other lower respiratory disease (2 sources) Cough; Translations: [Cough] 08-01-2021 Episodic Other screening for suspected conditions (not mental disorders or infectious disease) (3 sources) Encounter for screening for diseases of the blood and blood-forming organs and certain disorders involving the immune mechanism; Translations: [Encounter for screening for diseases of the blood and blood-forming organs and certain disorders involving the immune mechanism] Onset: 12-23-2023 Episodic Unclassified (2 sources) COUGH, CONGESTION 08-01-2021 Results Test Name Value Interpretation Reference Range Facil ity Vital Signs Date Time Vital Sign Value Performing Clinician Facility 08-01-2021 13:37-0400 Body height 152.4 cm Bhavin Catherine Other Phone: [facility] 08-01-2021 13:37-0400 Body temperature 98.06 [degF] Bhavin Catherine Other Phone: [facility] 08-01-2021 13:37-0400 Diastolic blood pressure 90 mm[Hg] Bhavin Catherine Other Phone: [facility] 08-01-2021 13:37-0400 Heart rate 88 /min Bhavin Catherine Other Phone: [facility] 08-01-2021 13:37-0400 Respiratory rate 16 /min Bhavin Catherine Other Phone: [facility] 09-18-2021 13:37-0400 SaO2% (BldA) [Mass fraction] 100 % Bhavin Catherine Other Phone: [facility] 08-01-2021 13:37-0400 Systolic blood pressure 150 mm[Hg] Bhavin Catherine Other Phone: [facility] Encounters Encounter Date Encounter Type Care Provider Facility Start: 01-10-2024 End: 01-10-2024 ambulatory CUAUHTEMOC STAS [facility] Start: 12-30-2023 End: 12-30-2023 ambulatory [facility] Start: 12-30-2023 End: 12-30-2023 Encounter for gy[facility]ological examination (general) (routine) [facility] Start: 12-23-2023 End: 12-23-2023 ambulatory NORWAY STAS [facility] Start: 08-01-2021 End: 08-01-2021 Emergency department patient visit Jacy Mcconnell [facility] Start: 07-26-2018 End: 07-26-2018 Emergency department patient visit [facility] Facility:[facility] Start: 07-26-2018 Patient encounter Facil [id number] Plan of Treatment Date Care Activity Detail Author Start: 05-22-2020 Chest pain Chest pain Jairo e: 22-May-2020 [facility] Payers Date Payer Category Payer Unknown 1970 Unknown [id number] 1970 Unknown [id number] 1970 Unknown [id number] Unknown [id number] Unknown [id number] Social History Date Type Detail Facility [facility] Tobacco smoking consumption unknown [facility] Summary Purpose Family History No Family History Records FoundNo Family History Records FoundNo Family History Records FoundNo Family History Records FoundNo Family History Records FoundNo Family History Records Found Advance Directives No Advanced Directives Records FoundNo Advanced Directives Records FoundNo Advanced Directives Records FoundNo Advanced Directives Records FoundNo Advanced Directives Records FoundNo Advanced Directives Records Found Additional Source Comments INFORMATION SOURCE (unrecogn ized section and content) DATE CREATED AUTHOR AUTHOR'S ORGANIZ ATION 08/24/2018 [facility] [place] DATE CREATED AUTHOR AUTHOR'S ORGANIZ ATION 08/07/2021 [facility] DATE CREATED AUTHOR AUTHOR'S ORGANIZ ATION 01/13/2024 [facility] ([place] DATE CREATED AUTHOR AUTHOR'S ORGANIZ ATION 01/15/2024 [facility] DATE CREATED AUTHOR AUTHOR'S ORGANIZ ATION 01/15/[address] [facility] <item> Privacy Markings (unrecogniz ed section and content) Section Author: Meghan Crews PROHIBITION ON REDISCLOSURE OF CONFIDENTIAL INFORMATION This notice accompanies a disclosure of information concerning a client made to you with the consent of such client. FOR RECORDS PERTAINING TO PATIENTS WHO ARE OR HAVE BEEN ENROLLED IN A CHEMICAL DEPENDENCY/SUBSTANCEABUSE PROGRAM, SOME INFORMATION MAY BE OMITTED. This clinical summary was aggregated from multiple sources. Caution should be exercised in using it in the provision of clinical care. This summary normalizes information from multiple sources, and as a consequence, information in this document may materially change the coding, format and clinical context of patient data. In addition, data may be omitted in some cases. CLINICAL DECISIONS SHOULD BE BASED ON THE PRIMARY CLINICAL RECORDS. [facility]. provides no warranty or guarantee of the accuracy or completeness of information in this document.
== END | disposition home or self-care (01) ==
LOC: OPBI 12:54
DX: Z12.31 Encounter for screening mammogram for malignant neoplasm of breast (principal)
CPT/HCPCS: 77063; 77067

== ENCOUNTER 2024-07-21 16:40 | Emergency (ER) | payer BC, SELFPAY ==
[2024-07-21 16:42] VITALS: BP 148/84; PULSE 78; RESP 16; TEMP 36.2; O2SAT 97; BMI 23.6
--- NOTE | 2024-07-21 17:13 | CT_ITS ---
STUDY: CTA HEAD AND NECK WITH CONTRAST REASON FOR EXAM: Female, 53 years old. prior CVA. Known Left carotid 100% occlusion RADIATION DOSAGE (If Supplied By Facility): CTDIvol = ( 25.36 ) mGy, DLP = ( 1263.77 ) mGycm TECHNIQUE: CT angiography was performed with a multi-detector CT scanner. Data acquisition was obtained from the skull base through the vertex following intravenous administration of IV 100mL [id number]-[id number]. MIP images were reconstructed from the axial data set. Post-processing of the angiographic images was performed, with multiplanar reformation and 3D reconstruction. Individualized dose optimization techniques were used for this CT. The protocol utilizes one or more of the following dose reduction techniques: automated exposure control, adjustment of mA and/or kV according to patient size,and/or use of iterative reconstruction technique. COMPARISON: MRA neck November 19, 2019. MR brain same day. MR a brain same day. CTA carotids May 07, 2019. CTA May 07, 2019. FINDINGS: Normal right carotid artery.. There is calcified plaque formation of the right cavernous carotid artery, with a moderate stenosis (50-75%). Occlusion or near occlusion of the supraclinoid segment of the left cavernous sinus with severe mixed plaque throughout the cavernous segment. Left petrous segment occluded or nearly occluded. Normal right A1 segments of the anterior cerebral artery. Normal left A1 segments of the anterior cerebral artery. Normal intact anterior communicating artery (ACOM). Normal bilateral A2 segments of the anterior cerebral arteries. Normal right M1 and M2 segments of the middle cerebral arteries, with a normal M1 bifurcation. Normal left M1 and M2 segments of the middle cerebral arteries, with a normal M1 bifurcation. There is non-visualization of the right posterior communicating artery (PCOM). Normal left posterior communicating artery (PCOM). Normal bilateral vertebral arteries. Normal basilar artery with a normal basilar bifurcation. The visualized bilateral superior cerebellar (SCA) arteries are normal. Normal bilateral P1, P2 and visualized P3 segments of the posterior cerebral arteries. There is no demonstrated aneurysm of the elim ira of [place]. There is no demonstrated abnormality of the visualized brain. AORTIC ARCH: Normal visualized aortic arch. Normal origins of the brachiocephalic, left common carotid, and left subclavian arteries. RIGHT CAROTID ARTERIES: Normal right common carotid artery (CCA). Normal right common carotid bulb. Normal origin of the right internal carotid (ICA) artery without a hemodynamically significant stenosis. Normal visualized cervical portion of the right internal carotid artery. Normal origin of the right external carotid artery (ECA). LEFT CAROTID ARTERIES: Normal left common carotid artery (CCA). Normal left common carotid bulb. Left internal carotid artery occluded or nearly occluded throughout. Normal visualized cervical portion of the left internal carotid artery. Normal origin of the left external carotid artery (ECA). VERTEBRAL ARTERIES: Normal bilateral vertebral arteries. IMPRESSION: Occlusion left internal carotid artery unchanged. Electronically Signed: Boston Juan MD at 19:19 EDT Reading Location ID and State: [address] [place] [id number] Tel , Service support , STUDY: CT BRAIN WITHOUT CONTRAST REASON FOR EXAM: Female, 53 years old. prior CVA. Known Left carotid 100% occlusion RADIATION DOSAGE (If Supplied By Facility): CTDIvol = ( ) mGy, DLP = ( ) mGycm TECHNIQUE: Transaxial CT imaging of the brain was performed without administration of intravenous contrast material. Individualized dose optimization techniques were used for this CT. The protocol utilizes one or more of the following dose reduction techniques: automated exposure control, adjustment of mA and/or kV according to patient size,and/or use of iterative reconstruction technique. COMPARISON: No relevant priors. FINDINGS: Normal soft tissue structures. Normal calvarium. Normal size ventricles and extra-axial spaces for the patient''s age. Normal white matter tracts of the cerebral hemispheres. Remote lacunar infarct left basal ganglia. Normal brainstem. Normal cerebellum. There is no intracranial hemorrhage. There are no findings of an acute ischemic infarction. Normal visualized paranasal sinuses. CT/CTA Head AND Neck W/ Contrast IMPRESSION: Remote lacunar infarct left basal ganglia. Electronically Signed: Boston Juan MD at 19:22 EDT ,
--- NOTE | 2024-07-21 17:13 | EKG12_ITS ---
Test Reason : SYNCOPE Blood Pressure : / mmHG Vent. Rate : 072 BPM Atrial Rate : 072 BPM P-R Int : 160 ms QRS Dur : 066 ms QT Int : 400 ms P-R-T Axes : 059 040 077 degrees QTc Int : 438 ms Normal sinus rhythm Normal ECG Confirmed by SHANI DAI, REBECCA ([id number]), photograph editor FLAVIO MEJIA ([id number]) on 07/23/2024 6:43:24 AM Referred By: Confirmed By:REBECCA MCLEOD MD
--- NOTE | 2024-07-21 17:17 | EX.ED.DYSGE1 ---
HPI History of Present Illness Chief Complaint: Syncope Informant: patient Onset/Context/Timing Onset: Today Context: Sudden Onset Current Severity: Gone Maximum Severity: Moderate Narrative Narrative: 43-year-old female history of prior stroke with known left carotid percent occlusion. Currently on Plavix. Today was high school football games that she felt well which This morning. A breakfast and lunch. She did difficulty understanding along the fence watching games initially felt nauseated and felt like she might pass out and got hot all over. And then had a episode of loss of conscious. She is unsure how long. She denies any headache or chest pain. She denies any weakness to her upper or lower extremities. She never fell or got injured. Prior similar symptoms: No Recent Illness/Hospitalization: No PFSH PFSH Medical History Stroke Home Medications ?Medication ?Instructions ?Recorded ?Last Taken ?Type bupropion HCl 150 mg 24 hr tablet, 150 mg PO QHS anxiety 05/07/19 11/18/19 History extended release hydroxyzine HCl 10 mg tablet 10 mg PO QHS anxiety 05/07/19 11/18/19 History lisinopril 5 mg tablet 5 mg PO QHS bp 05/07/19 11/18/19 History atorvastatin 40 mg tablet 40 mg PO QHS #30 tabs 11/20/19 Unknown Rx clopidogrel 75 mg tablet 75 mg PO DAILY #30 tabs 11/20/19 Unknown Rx Allergy/AdvReac Type Severity Reaction Status Date / Time yellow dye AdvReac Rash Verified 10/31/22 14:18 Social History Smoking Status: Never smoker ROS ROS ED ROS Narrative Denies recent illness. Constitutional Constitutional ED: Denies chills or fever(s) Eyes Eyes: Denies blurry vision ENT ENT ED: Denies ear pain Cardiovascular Cardiovascular: Denies chest pain or palpitations Respiratory/Chest Respiratory/Chest: Denies cough or dyspnea Gastrointestinal Gastrointestinal: Denies abdominal pain, diarrhea, nausea or vomiting Genitourinary Genitourinary ED: Denies dysuria or hematuria Musculoskeletal Musculoskeletal: Denies arthralgias, back pain or myalgias Integumentary Denies abscess or Abrasions Neurologic Neurologic: Denies headache(s) Psychiatric Psychiatric: Denies anxiety or depression Endocrine Endocrinology: Denies cold intolerance Hematologic/Lymphatic Hematologic/Lymphatic: Reports none Allergic/Immunologic Allergic/Immunologic ED: Denies mouth swelling, tongue swelling or urticaria EXAM Physical Exam Narrative Exam Narrative: 53-year-old female vital signs are stable afebrile. Pulse ox 97% on room air no hypoxia. H EENT exam unremarkable. Pupils round reactive light. Normal speech. No facial droop. No trauma. Neck nontender. Lungs clear to auscultation bilaterally. Heart regular rate and rhythm rate about 75 no murmur. Chest wall ribs nontender. Abdomen soft nontender. Moving all 4 extremities. 5 out of 5 podiatric medicine professor strength. Dorsi plantarflexion intact. Fingertip to nose within normal limits. Back nontender. Neurologic exam she is awake and alert. Has no focal or sensory deficits. NIH score is 0. Const Vital Signs: 07/21/24 16:42 07/21/24 17:33 07/21/24 18:41 Temperature 97.1 F L Temperature Source Temporal Pulse Rate 78 77 Respiratory Rate 16 Blood Pressure 148/84 H 143/82 H Blood Pressure Mean 105 102 Pulse Ox 97 99 Oxygen Delivery Method Room Air Room Air Room Air Positive well nourished and well developed; Negative for obese, cachectic, contractures or unkempt General Appearance ED: well developed and NAD; Negative for unkempt, cachectic, contractures, cyanotic, diaphoretic or pallor Nutritional Appearance: Negative for cachectic or obese HEENT Reports moist mucous membranes; Denies dry mucous membranes Negative for trauma or tenderness Mouth ED: No dry mucous membranes Mouth: No dry mucous membranes Eyes PERRL and EOMs intact bilaterally General Eye ED: Negative for pale conjunctiva, scleral icterus or other Neck no lymphadenopathy, supple and no JVD General: Negative for tenderness Chest Wall inspection of chest normal and palpation of chest normal Chest: Negative for other Resp normal respiratory effort and clear to auscultation bilaterally Effort and Inspection: Negative for retractions Auscultation: Negative for rales, rhonchi, wheezes or diminished lung sounds Cardio regular rate, regular rhythm, S1 normal heart sound, S2 normal heart sound and no murmurs Palpation: Negative for palpable S3 or palpable S4 Rate: Negative for bradycardia or tachycardic Rhythm: Negative for abnormal rhythm GI normal to inspection, nondistended, normoactive bowel sounds, non-tender, non-distended and no masses Inspection: Negative for abdominal distention Auscultation: normoactive bowel sounds Palpation: soft; Negative for tender, guarding, splenomegaly, mass or rebound tenderness present Back/Spine no CVA tenderness General Back: Negative for CVA tenderness or other Cervical Spine: Negative for cervical spine tenderness Thoracic Spine / Upper Back: Negative for thoracic spinal tenderness or paraspinal muscle tenderness Lumbar Spine / Lower Back: Negative for lumbar spinal tenderness Extremity normal to inspection General Extremety ED: Negative for edema, tenderness or other findings General Extremity: Negative for edema or other findings Neuro oriented x3, CN's II-XII intact bilaterally and no sensory deficits noted Sensorium / Orientation: alert; Negative for orientation impaired, lethargic or stuporous Motor Exam: strength 5/5 throughout; Negative for general weakness or strength abnormal Psych mental status grossly normal Appearance: Negative for unkempt Attitude: No agitated Mood & Affect: Negative for depressed, anxious or tearful Skin no rashes or lesions noted, no wounds and skin turgor normal General Skin Exam: elasticity normal; Negative for jaundice or pallor Lesions: No lesion noted Rashes: No rashes noted Trauma: Negative for abrasion Wounds: Negative for wounds noted MDM MDM MDM Narrative Medical decision making narrative: 53-year-old female with a syncopal episode. Has a normal exam. She undergo cardiac workup. She also has a history of prior stroke and is concerned because she knows she has carotid disease and has had pain on the right side of her neck for some time. CTA of her head and neck will be done also. I see no signs of stroke at this time on her exam. Her NIH score is normal. Repeat exam at 7:49 PM patient doing well. is at bedside. I believe her son also. Patient's no complaints. Repeat exam is normal and unchanged. We went over all of her normal test results. Her CAT scan with a chronic left carotid blockage which they have seen before. We discussed syncope and causes for it. I offered them admission overnight for further evaluation and cardiac monitoring. She has appointment see her primary care physician on Tuesday and chooses to go home. They understand risk and benefits. They know to return if worse. History & Record Review Discussion w/independent historian: Patient Additional record(s) reviewed:: Prior inpatient record, Prior outpatient record, Prior ED visit and Prior labs Lab Data Attestation: I reviewed the patient's lab results. Lab results narrative: CBC normal. White count of 6. H&H 12 and 40. Platelets 299. Electrolytes unremarkable gap 4. BUN and creatinine are 19 and 1. Glucose 130. Troponin 7. Chest x-ray normal. Labs: Laboratory Results - last 24 hr 07/21/24 16:51 WBC 6.5 RBC 4.54 Hgb 12.8 Hct 40.5 MCV 89.2 MCH 28.2 MCHC 31.6 L RDW Std Deviation 42.2 RDW Coeff of Vinicius 12.8 Plt Count 299 MPV 10.4 Immature Gran % (Auto) 0.300 Neut % (Auto) 57.2 Lymph % (Auto) 32.4 Bland % (Auto) 9.0 Eos % (Auto) 0.3 Baso % (Auto) 0.8 Absolute Neuts (auto) 3.7 Absolute Lymphs (auto) 2.12 Nucleated RBC % 0 Sodium 138 Potassium 3.5 Chloride 106 Carbon Dioxide 28.0 Anion Gap 4 L BUN 19 H Creatinine 1.09 H Estim Creat Clear Calc 45.39 Est GFR (MDRD) Af Amer 67 Est GFR (MDRD) Non-Af 55 L BUN/Creatinine Ratio 17.4 Glucose 130 H Calcium 9.4 Troponin I High Sens 7 Radiography Chest X-Ray - ED: 1 View, Read by ED Physician, Read by Radiologist, Heart, Lungs, Mediastinum, Bony Structures, No Acute Disease and Chronic Changes Diagnostic Testing: Clinical Impression(s) from Imaging Studies Head/Neck CTA 07/21/24 17:13 IMPRESSION: Remote lacunar infarct left basal ganglia. Electronically Signed: Boston Juan MD at 19:22 EDT , Chest X-Ray 07/21/24 18:10 IMPRESSION: No acute radiographic abnormalities. Electronically Signed: Romero Olea MD at 18:46 EDT , Chest x-ray, portable, single view interpreted both by myself and the radiologist shows no acute abnormality. Normal cardiac silhouette. Normal mediastinum. CTA head and neck read by the radiologist reviewed by me shows chronic changes no acute process. No acute bleed or acute stroke. Rhythm Strip Rhythm Strip: Sinus Rhythm Rate: 72 Ectopy: None EKG Initial EKG: Attestation: I personally reviewed and interpreted this EKG as follows: Interpretation: Sinus Rhythm and No Acute Injury Pattern Comments: Normal sinus rhythm rate of 72 no acute signs of PR or ischemia. No dysrhythmia. Discharge Plan Triage Chief Complaint: Syncope ED Provider: Jorge Swann Dx/Rx/DC Orders Clinical Impression: Syncope, History of stroke Instructions: Causes of Syncope Prescriptions: No Action lisinopril 5 MG tablet 5 mg PO QHS bupropion HCl 150 MG tablet extended release 24 hr 150 mg PO QHS hydroxyzine HCl 10 tablet 10 mg PO QHS clopidogrel 75 MG tablet 75 mg PO DAILY Qty: 30 1RF atorvastatin 40 MG tablet 40 mg PO QHS Qty: 30 1RF Primary Care Provider: Ingrid Burkett Referrals: Ingrid Burkett, NURSE EPIDEMIOLOGIST-C [Primary Care Provider] - As soon as possible Activity Restrictions/Additional Instructions: Follow-up with your primary care provider. Return if feeling worse. Or if you pass out again. The specific episode that made you pass out we do not have a specific cause. Your EKG, chest x-ray and labs are unremarkable. The CAT scan your brain and neck showed a chronic blockage but nothing new. Print Language: Macanese Disposition Disposition: Home, Self Care
[2024-07-21 17:37] LABS: Absolute Lymphocyte Count 2.12 X10^3/uL (0.83-4.51); Absolute Neutrophil Count 3.7 X10^3/uL (2.0-7.7); Basophil# 0.05 X10^3/uL; Basophil% 0.8 % (0-1); Eosinophil# 0.02 X10^3/uL; Eosinophils% 0.3 % (0-5); Hematocrit 40.5 % (37-47); Hemoglobin 12.8 g/dL (12.0-15.0); Lymphocyte # 2.12 X10^3/ul (0.83-4.51); Lymphocyte % 32.4 % (19-41); Mean Corp Hgb Conc 31.6 g/dL (32-36); Mean Corpuscular Hgb 28.2 pg (27.0-32.0); Mean Corpuscular Volume 89.2 fL (81-99); Mean Platelet Vol. 10.4 fl (6.2-12.0); Monocyte# 0.59 X10^3/uL; NRBC Flagged by Analyzer 0 % (0-5); Neutrophil # 3.74 X10^3/uL (2.7-7.7); Neutrophil % 57.2 % (47-70); Platelet Count 299 K/mm3 (150-450); RBC Distribution Width CV 12.8 % (11.6-14.6); RBC Distribution Width SD 42.2 fl (35.1-43.9); Red Blood Count 4.54 M/mm3 (4.2-5.4); White Blood Count 6.5 K/mm3 (4.4-11.0)
[2024-07-21 17:58] LABS: Anion Gap 4 (5-15); BUN 19 mg/dL (7-18); BUN/Creat Ratio 17.4 RATIO (10-20); Calcium,Total 9.4 mg/dL (8.5-10.1); Chloride 106 mmol/L (98-107); Creatinine, Serum 1.09 mg/dL (0.55-1.02); EST Glomerular Filtration Rate 55 mL/min (>60); Est Glom Filt Rate - Afr Amer 67 mL/min (>60); Estimated Creatinine Clearance 45.39 ml/min; Glucose 130 mg/dL (74-106); Potassium 3.5 mmol/L (3.5-5.1); Sodium Level 138 mmol/L (136-145); Troponin-I HS 7 pg/mL (3.0-54.0)
--- NOTE | 2024-07-21 18:10 | RAD_ITS ---
INDICATION: chest pain EXAMINATION/TECHNIQUE: X-RAY - XR Chest 1 View COMPARISON: 04/02/2020. FINDINGS: The lungs are clear. The cardiomediastinal silhouette is unremarkable. No pleural effusion or pneumothorax. No acute osseous abnormalities. RAD/Chest 1 View (Portable) IMPRESSION: No acute radiographic abnormalities. Electronically Signed: Romero Olea MD at 18:46 EDT ,
[2024-07-21 18:41] VITALS: BP 143/82; PULSE 77; O2SAT 99
[2024-07-21 20:00] VITALS: BP 141/77; PULSE 75; RESP 16; TEMP 36.6; O2SAT 99
== END 2024-07-21 20:09 | disposition home or self-care (01) ==
PROVIDERS: Emergency Provider Emergency Medicine; PCP Nurse Practitioner Family; Visit Provider Emergency Medicine
DX: R55 Syncope and collapse (principal); I65.22 Occlusion and stenosis of left carotid artery; Z79.02 Long term (current) use of antithrombotics/antiplatelets; Z79.899 Other long term (current) drug therapy; Z86.73 Personal history of transient ischemic attack (TIA), and cerebral infarction without residual deficits
CPT/HCPCS: 70496; 70498; 71045; 80048; 84484; 85025; 93005; 99284; Q9967; A4216